=== PATIENT | female | born 1960 | race African-American/Black ===

== ENCOUNTER 2020-06-10 09:26 | Outpatient (CLI) | payer OTHER, SELFPAY ==
--- NOTE | ~2020-06-10 | XR_ITS ---
EXAMINATION: XR abdomen/kub 1V EXAM DATE: 06/10/2020 09:53 INDICATION: Constipation. Mass at level of naval, symptoms 3 months. TECHNIQUE: Frontal projection of the upper abdomen, frontal projection lower abdomen/pelvis for inter pretation. There is no prior study for comparison. FINDINGS: There is moderate amount of colonic stool and gas. No small bowel dilation, nonobstructiv e bowel gas pattern. There are no suspicious calcifications identified. There is no organomegaly suspected. There are cholecystectomy clips. IMPRESSION: Moderate amount of colonic stool. Reviewed, dictated and finalized at location A.
== END 2020-06-10 09:27 | disposition home or self-care (01) ==
LOC: ANHIMG 09:30
PROVIDERS: PCP Family Medicine; Visit Provider Physician Assistant
DX: K59.00 Constipation, unspecified (principal); R10.9 Unspecified abdominal pain
CPT/HCPCS: 74018

== ENCOUNTER 2020-07-21 02:10 | Outpatient (CLI) | payer OTHER, SELFPAY ==
[2020-07-21 18:17] LABS: SARS-CoV-2 RNA PCR Negative
== END 2020-07-21 02:11 | disposition home or self-care (01) ==
LOC: ANHCOVIDDT 02:10
PROVIDERS: Visit Provider Surgery
DX: Z01.812 Encounter for preprocedural laboratory examination (principal); Z20.828 Contact with and (suspected) exposure to other viral communicable diseases
CPT/HCPCS: 87635; C9803; U0003

== ENCOUNTER 2020-07-23 03:36 | Day surgery (SDC) | payer OTHER, SELFPAY ==
[2020-07-16 14:39] VITALS: BMI 31.6
[2020-07-23 11:26] VITALS: BP 138/73; PULSE 64; RESP 16; TEMP 36.7; O2SAT 99; BMI 31.9
--- NOTE | 2020-07-23 11:43 | WPDHPUPDATE1 ---
History and Physical Update Update Date/Time: 07/23/20 11:43 History and Physical has been reviewed, including an updated exam of the patient. There are NO changes in the patient's condition. Risks, benefits, and alternatives of a screening colonoscopy with possible biopsies have been discussed and questions answered. Patient agrees to proceed with procedure.
[2020-07-23] MEDS: LACTATED RINGERS 1,000 ML 150 ML IV CONT (11:46)
--- NOTE | 2020-07-23 11:46 | WPDANESEPPF ---
Anes - Initial Pre Proc Eval Procedure: Operation Date: 07/23/20 12:00 Proposed Procedures p Colonoscopy - Naldo Iniguez MD Date/Time: 07/23/20 11:46 Surgeon: Naldo Iniguez MD Pre Op Diagnosis: Abdominal Pain Patient Data Age: 59 Gender: F Height: 4 ft 11 in Weight: 71.8 kg Last Vital Signs Temp 98.0 F 07/23/20 11:26 Pulse 64 07/23/20 11:26 Resp 16 07/23/20 11:26 BP 138/73 07/23/20 11:26 Pulse Ox 99 07/23/20 11:26 Allergies Allergy/AdvReac Type Severity Reaction Status Date / Time ciprofloxacin [From Cipro] Allergy Mild tongue Verified 07/23/20 11:23 swelling Home Medications Medication Instructions Recorded Confirmed Type cyanocobalamin (vitamin B-12) 1,000 mcg PO DAILY 10/07/19 07/16/20 History 1,000 mcg capsule furosemide 20 mg tablet 20 mg PO QAM #30 tablet 03/10/20 07/16/20 Rx glimepiride 4 mg tablet 4 mg PO QAM #90 tablet 03/10/20 07/16/20 Rx insulin detemir U-100 100 unit/mL See Rx Instructions .ROUTE 03/10/20 07/16/20 Rx (3 mL) subcutaneous pen .COMPLEX #30 ml sitagliptin 100 mg-metformin ER 1 tablet PO DAILY #90 tablet 03/10/20 07/16/20 Rx 1,000 mg tablet,extended [id number] mp liraglutide 0.6 mg/0.1 mL (18 mg/3 1.2 mg SUB-Q DAILY 30 Days #6 ml 05/13/20 07/16/20 Rx mL) subcutaneous pen injector atorvastatin 80 mg PO HS 07/16/20 07/16/20 History docusate sodium [Stool Softener] 300 mg PO DAILY 07/16/20 07/16/20 History methylcellulose (laxative) [Fiber 1,000 mg PO BID 07/16/20 07/16/20 History Therapy (m-cellulose)] nitrofurantoin 100 mg PO Q12H 7 Days #14 cap 07/21/20 07/21/20 Rx monohydrate/macrocrystals 100 mg capsule Patient hx anesthesia problems: none Family hx anesthesia problems: none PMFSH Past Medical History Medical History (Updated 07/21/20 @ 10:45 by Enid Martin PA-C) Benign reactive hypertension Ganglion cyst of volar aspect of right wrist Heart attack Heart disease Hyperlipidemia associated with type 2 diabetes mellitus Mitral valve prolapse Mixed hyperlipidemia S/P abdominoplasty Type 2 diabetes mellitus with diabetic chronic kidney disease Vitamin B2 deficiency Surgical History Surgical History S/P shoulder surgery Family History Family History Father Hypertension Family history of elevated blood lipids Family history of diabetes mellitus in first degree relative High cholesterol Mother Family history of malignant neoplasm of uterus, Onset Age: 49 Patient's mother is Sibling Gunshot wound Other Diabetes mellitus Family history of heart disease in male family member before age 55 Family history of malignant neoplasm Social History Social History (Updated 07/21/20 @ 09:47 by Lianna Riddle) Social History: Smoking status: Never smoker Second hand tobacco smoke exposure: No Alcohol intake: current Substance use: never Substance use type: does not use Living arrangements: with family Gender identity (if verbalized by the patient): Female Spiritual care concerns: No Anes - Eval Final PreProcedure Day of Procedure 07/23/20 11:46 Patient weight: normal Heart: regular rate and rhythm Lungs: clear to auscultation Airway: Mallampati scale class II Neurological: alert and oriented Last oral intake: >/= 8 hours ASA classification: III Emergent: no Anesthetic plan: proceed Anesthesia type and monitoring: general GIVS and standard monitoring Informed Consent: The patient's anesthetic plan and its attendant risks and benefits were discussed with the patient/family/POA. Questions were solicited and answers provided to the satisfaction of the patient/family/POA.
[2020-07-23 11:51] LABS: Glucose Point of Care 120 (65-105)
[2020-07-23 12:50] VITALS: BP 110/60; PULSE 75; RESP 20; O2SAT 96
[2020-07-23 13:00] VITALS: BP 128/73; PULSE 75; RESP 18; O2SAT 100
[2020-07-23 13:10] VITALS: BP 140/69; PULSE 72; RESP 20; O2SAT 100
[2020-07-23] MEDS: ONDANSETRON INJ 4 MG/2 ML VIAL IV PUSH (13:17)
--- NOTE | 2020-07-23 13:52 | SUR.PHASEII ---
1250: PT INTO RECOVERY, SLEEPING, NO SIGNS OF DISCOMFORT 1315: PT GRIMACING WITH COMPLAINTS OF CRAMPING TO LOWER ABDOMEN AND NAUSEA. DR SPICER HERE AND NOTIFIED. DR SPICER SPOKE WITH PT. SAV GIVEN PER ORDERS. DR SPICER CALLED PT'S SPOUSE ABOUT PROCEDURE, PREP, AND THE NEED TO REPEAT PROCEDURE AGAIN TOMORROW AFTER MORE PREP TODAY. 1340: DR SPICER REMAINS HERE AND EXPLAINED PREP FOR TODAY TO PT, PT STATES UNDERSTANDING. PT HAS NO FURTHER COMPLAINTS OF NAUSEA. PT STATES CRAMPING PAIN IS LESS. PT AWAKE AND ALERT, UP WITHOUT DIFFICULTY. 1348: PT TAKEN OUT TO SPOUSE'S VEHICLE. DISCHARGE INSTRUCTIONS AND PREP FOR TODAY EXPLAINED TO PT'S SPOUSE. STATES UNDERSTANDING. ALL PAPERWORK GIVEN TO PT SPOUSE. PT HAS NO COMPLAINTS OF NAUSEA OR PAIN AT DISCHARGE.
[2020-07-23 14:02] LABS: Glucose Point of Care 102 (65-105)
== END 2020-07-23 13:48 | disposition home or self-care (01) ==
PROVIDERS: PCP Family Medicine; Visit Provider Surgery
PROC: 0DJD8ZZ Inspection of Lower Intestinal Tract, Via Natural or Artificial Opening Endoscopic (ICD-10-PCS; CPT 45378; principal; 2020-07-23 12:00)
DX: Z12.11 Encounter for screening for malignant neoplasm of colon (principal); D12.3 Benign neoplasm of transverse colon; I12.9 Hypertensive chronic kidney disease with stage 1 through stage 4 chronic kidney disease, or unspecified chronic kidney disease; N18.9 Chronic kidney disease, unspecified; E78.2 Mixed hyperlipidemia; I34.1 Nonrheumatic mitral (valve) prolapse; E53.8 Deficiency of other specified B group vitamins; Z79.4 Long term (current) use of insulin; I25.2 Old myocardial infarction
CPT/HCPCS: 45380; 88305; J2405; J2704; J7120

== ENCOUNTER 2020-07-24 01:20 | Day surgery (SDC) | payer OTHER, SELFPAY ==
[2020-07-23 13:49] VITALS: BMI 31.9
[2020-07-24 11:54] VITALS: BP 127/95; PULSE 68; RESP 16; TEMP 36.3; O2SAT 98
[2020-07-24] MEDS: LACTATED RINGERS 1,000 ML 150 ML IV CONT (12:05)
[2020-07-24 12:06] LABS: Glucose Point of Care 130 (65-105)
--- NOTE | 2020-07-24 12:45 | WPDANESEPPF ---
Anes - Initial Pre Proc Eval Procedure: Operation Date: 07/24/20 13:00 Proposed Procedures p Colonoscopy - Naldo Iniguez MD Date/Time: 07/24/20 12:45 Surgeon: Naldo Iniguez MD Pre Op Diagnosis: Abdominal Pain Patient Data Age: 59 Gender: F Height: 4 ft 11 in Weight: 70.5 kg Last Vital Signs Temp 97.3 F L 07/24/20 11:54 Pulse 68 07/24/20 11:54 Resp 16 07/24/20 11:54 BP 127/95 H 07/24/20 11:54 Pulse Ox 98 07/24/20 11:54 Allergies Allergy/AdvReac Type Severity Reaction Status Date / Time ciprofloxacin [From Cipro] Allergy Mild tongue Verified 07/24/20 11:52 swelling Home Medications Medication Instructions Recorded Confirmed Type cyanocobalamin (vitamin B-12) 1,000 mcg PO DAILY 10/07/19 07/23/20 History 1,000 mcg capsule furosemide 20 mg tablet 20 mg PO QAM #30 tablet 03/10/20 07/23/20 Rx glimepiride 4 mg tablet 4 mg PO QAM #90 tablet 03/10/20 07/23/20 Rx insulin detemir U-100 100 unit/mL See Rx Instructions .ROUTE 03/10/20 07/23/20 Rx (3 mL) subcutaneous pen .COMPLEX #30 ml sitagliptin 100 mg-metformin ER 1 tablet PO DAILY #90 tablet 03/10/20 07/23/20 Rx 1,000 mg tablet,extended [id number] mp liraglutide 0.6 mg/0.1 mL (18 mg/3 1.2 mg SUB-Q DAILY 30 Days #6 ml 05/13/20 07/23/20 Rx mL) subcutaneous pen injector Fiber Therapy (m-cellulose) 1,000 mg PO BID 07/16/20 07/23/20 History atorvastatin 80 mg PO HS 07/16/20 07/23/20 History docusate sodium [Stool Softener] 300 mg PO DAILY 07/16/20 07/23/20 History nitrofurantoin 100 mg PO Q12H 7 Days #14 cap 07/21/20 07/23/20 Rx monohydrate/macrocrystals 100 mg capsule Laboratory Tests 07/24/20 12:03 POC Capillary Glucose 130 mg/dl H mg/dl (65-105) Patient hx anesthesia problems: none Family hx anesthesia problems: none PMFSH Past Medical History Medical History (Updated 07/21/20 @ 10:45 by Enid Martin PA-C) Benign reactive hypertension Ganglion cyst of volar aspect of right wrist Heart attack Heart disease Hyperlipidemia associated with type 2 diabetes mellitus Mitral valve prolapse Mixed hyperlipidemia S/P abdominoplasty Type 2 diabetes mellitus with diabetic chronic kidney disease Vitamin B2 deficiency Surgical History Surgical History S/P shoulder surgery Family History Family History Father Hypertension Family history of elevated blood lipids Family history of diabetes mellitus in first degree relative High cholesterol Mother Family history of malignant neoplasm of uterus, Onset Age: 49 Patient's mother is Sibling Gunshot wound Other Diabetes mellitus Family history of heart disease in male family member before age 55 Family history of malignant neoplasm Social History Social History (Updated 07/21/20 @ 09:47 by Lianna Riddle) Social History: Smoking status: Former smoker Second hand tobacco smoke exposure: No Alcohol intake: current Drinks per week: 1 Substance use: never Substance use type: does not use Living arrangements: with family Gender identity (if verbalized by the patient): Female Spiritual care concerns: No Anes - Eval Final PreProcedure Day of Procedure 07/24/20 12:45 Patient weight: normal Lungs: clear to auscultation Airway: Mallampati scale class II Neurological: alert and oriented Last oral intake: >/= 8 hours ASA classification: III Emergent: no Anesthetic plan: proceed Anesthesia type and monitoring: general GIVS and standard monitoring Informed Consent: The patient's anesthetic plan and its attendant risks and benefits were discussed with the patient/family/POA. Questions were solicited and answers provided to the satisfaction of the patient/family/POA.
--- NOTE | 2020-07-24 12:56 | WPDHPUPDATE1 ---
History and Physical Update Update Date/Time: 07/24/20 12:56 History and Physical has been reviewed, including an updated exam of the patient. There are changes in the patient's condition. She recovered well from the partial colonoscopy (poor prep) yesterday and the path o the polyp that I removed yesterday is already back showing a tubular adenoma. Risks, benefits, and alternatives of a colonoscopy with possible biopsy of polypectomy have been discussed and questions answered. Patient agrees to proceed with procedure.
[2020-07-24 14:20] VITALS: BP 109/59; PULSE 66; RESP 17; TEMP 36; O2SAT 100
[2020-07-24 14:30] VITALS: BP 110/65; PULSE 74; RESP 21; O2SAT 100
[2020-07-24 14:38] LABS: Glucose Point of Care 87 (65-105)
[2020-07-24 14:40] VITALS: BP 122/73; PULSE 70; RESP 13; O2SAT 100
== END 2020-07-24 15:00 | disposition home or self-care (01) ==
PROVIDERS: PCP Family Medicine; Visit Provider Surgery
PROC: 0DJD8ZZ Inspection of Lower Intestinal Tract, Via Natural or Artificial Opening Endoscopic (ICD-10-PCS; CPT 45378; principal; 2020-07-24 13:00)
DX: Z12.11 Encounter for screening for malignant neoplasm of colon (principal); R10.84 Generalized abdominal pain; I12.9 Hypertensive chronic kidney disease with stage 1 through stage 4 chronic kidney disease, or unspecified chronic kidney disease; N18.9 Chronic kidney disease, unspecified; E11.22 Type 2 diabetes mellitus with diabetic chronic kidney disease; E78.2 Mixed hyperlipidemia; I25.2 Old myocardial infarction; I34.1 Nonrheumatic mitral (valve) prolapse; E53.8 Deficiency of other specified B group vitamins; Z79.4 Long term (current) use of insulin; Z79.84 Long term (current) use of oral hypoglycemic drugs; Z87.891 Personal history of nicotine dependence
CPT/HCPCS: 45380; 88305; J2704; J7120

== ENCOUNTER 2020-09-03 06:53 | Outpatient (NON) | payer OTHER, SELFPAY ==
[2020-09-04 06:44] LABS: SARS-CoV-2 RNA PCR Negative
== END 2020-09-03 06:54 ==
LOC: ANHCOVIDDT 06:56
PROVIDERS: PCP Family Medicine; Visit Provider Physician Assistant
DX: R68.89 Other general symptoms and signs (principal); Z20.828 Contact with and (suspected) exposure to other viral communicable diseases
CPT/HCPCS: 87635; C9803; U0003

== ENCOUNTER → 2021-03-16 09:41 | Outpatient (CLI) | payer OTHER, SELFPAY ==
--- NOTE | ~2021-03-16 | MM_ITS ---
EXAMINATION: MM screening [facility] BI w kristi HISTORY: Screening TECHNIQUE: Craniocaudal and mediolateral oblique 3-D tomosynthesis images were obtained and synthetic 2-D images were generated. CAD analysis was submitted and interpreted. COMPARISON: 12/06/2013 BREAST PARENCHYMAL COMPOSITION: There are scattered areas of fibroglandular density. FINDINGS: There are benign-appearing bilateral breast calcifications. There is no evidence of suspici ous mass, calcification, or architectural distortion to suggest malignancy in either breast. There hester s been no suspicious interval change. IMPRESSION: 1. No mammographic evidence of malignancy. 2. Recommend routine screening mammography in one year. BI-RADS Category 1: Negative Reviewed, dictated and finalized at location A.
== END ==
PROVIDERS: PCP Family Medicine; Visit Provider Physician Assistant
DX: Z12.31 Encounter for screening mammogram for malignant neoplasm of breast (principal)
CPT/HCPCS: 77063; 77067

== ENCOUNTER 2021-07-05 13:00 | Outpatient (RCR) | payer OTHER, SELFPAY ==
[2021-05-11 14:12] VITALS: BMI 32.5
[2021-05-11 14:17] VITALS: BMI 32.5
== END 2021-07-26 10:36 | disposition home or self-care (01) ==
LOC: ANHDMC 13:00
PROVIDERS: PCP Family Medicine; Visit Provider Physician Assistant
DX: E11.65 Type 2 diabetes mellitus with hyperglycemia (principal); Z71.3 Dietary counseling and surveillance; Z71.89 Other specified counseling
CPT/HCPCS: 97802; G0108

== ENCOUNTER 2021-08-23 11:20 | Outpatient (RCR) | payer OTHER, SELFPAY | END 2021-09-08 11:37 | disposition home or self-care (01) | LOC: ANHDMC 11:20 | PROVIDERS: PCP Family Medicine; Visit Provider Physician Assistant | DX: E11.65 Type 2 diabetes mellitus with hyperglycemia (principal); Z71.89 Other specified counseling | CPT/HCPCS: G0108 ==

== ENCOUNTER 2021-09-01 16:03 | Emergency (ER) | payer MEDICAID, SELFPAY ==
--- NOTE | ~2021-09-01 | XR_ITS ---
EXAMINATION: XR abdomen/kub 1V DATE: 09/01/2021 16:36 INDICATION: Foreign body. Insulin needle broke off in stomach. TECHNIQUE: A supine view of the abdomen on 2 radiographs was obtained. COMPARISON: Abdomen radiograph 06/10/2020 FINDINGS: There are no dilated loops of bowel. Surgical clips in the right upper quadrant are likely from cholecystectomy. An electronic device overlies left abdomen. Two round metal densities overlying the pelvis are likely outside of the patient. IMPRESSION: 1. No radiopaque foreign body. Reviewed, dictated and finalized at location A. ET PERSON
[2021-09-01 16:10] VITALS: BP 168/90; PULSE 96; RESP 14; TEMP 36.6; O2SAT 96
--- NOTE | 2021-09-01 16:59 | ED.GENADULT ---
HPI - General Adult General Chief complaint: Skin/Abscess/Foreign Body Stated complaint: insulin needle broke off in stomach? Time Seen by Provider: 09/01/21 16:14 Source: patient Mode of arrival: ambulatory Limitations: no limitations History of Present Illness HPI narrative: 60-year-old with a history of diabetes here with complaints of possible insulin needle stuck in the right upper abdomen since last 3 days. She states that she has occasional pain. Patient states she gives her insulin daily . Denies any other complaints Onset (ago): day(s) (3) Quality: aching Exacerbating factors: none Associated symptoms: denies other symptoms Related Data Home Medications Medication Instructions Recorded Confirmed cyanocobalamin (vitamin B-12) 1,000 mcg PO DAILY 10/07/19 08/28/21 1,000 mcg capsule Fiber Therapy (m-cellulose) 1,000 mg PO BID 07/16/20 08/28/21 docusate sodium [Stool Softener] 300 mg PO DAILY 07/16/20 08/28/21 omega-3 fatty acids 1,000 mg 1,000 mg PO DAILY 01/27/21 08/28/21 capsule Allergies Allergy/AdvReac Type Severity Reaction Status Date / Time ciprofloxacin [From Cipro] Allergy Mild tongue Verified 08/13/21 14:03 swelling Review of Systems Review of Systems: All systems reviewed & are unremarkable except as noted in HPI and below Constitutional: Constitutional: Reports no additional constitutional complaints Eyes: Eyes: Reports no additional eye complaints ENT: Reports system reviewed and no additional complaints, except as documented Cardiovascular: Cardiovascular: Reports no additional cardiovascular complaints Respiratory: Respiratory: Reports no additional respiratory complaints Gastrointestinal: Gastrointestinal: Reports no additional gastrointestinal complaints Musculoskeletal: Musculoskeletal: Reports no additional musculoskeletal complaints Integumentary/Breasts: Skin/Breast: Reports system reviewed and no additional complaints, except as docu Neurologic: Reports system reviewed and no additional complaints, except as documented Psychiatric: Psychiatric: Reports no additional psychiatric complaints Endocrine: Endocrine: Reports no additional endocrine complaints [facility] Past Medical History Medical History (Updated 09/01/21 @ 17:17 by Chan Dominguez MD) Benign reactive hypertension Ganglion cyst of volar aspect of right wrist Heart attack Heart disease Hyperlipidemia associated with type 2 diabetes mellitus Mitral valve prolapse Mixed hyperlipidemia S/P abdominoplasty Type 2 diabetes mellitus with diabetic chronic kidney disease Vitamin B2 deficiency Surgical History Surgical History S/P shoulder surgery Family History Family History Father Hypertension Family history of elevated blood lipids Family history of diabetes mellitus in first degree relative High cholesterol Mother Family history of malignant neoplasm of uterus, Onset Age: 49 Patient's mother is Sibling Gunshot wound Other Diabetes mellitus Family history of heart disease in male family member before age 55 Family history of malignant neoplasm Social History Social History Social History: Smoking status: Never smoker Second hand tobacco smoke exposure: No Alcohol intake: current Drinks per week: 1 Alcohol use details: occasionally Substance use: never Substance use type: does not use Gender identity (if verbalized by the patient): Female Sexual Orientation (if Verbalized by the Patient): Straight or Heterosexual Spiritual care concerns: No Exam Narrative: GENERAL: Well-appearing, well-nourished, and in no acute distress. HEAD: Normocephalic, atraumatic. EYES: PERRLA and EOMI. NECK: Supple. CHEST: Clear to auscultation. No respiratory distress. HEART: Regular ra
== END 2021-09-01 17:28 | disposition home or self-care (01) ==
PROVIDERS: Emergency Provider Family Medicine; PCP Family Medicine
DX: R10.9 Unspecified abdominal pain (principal); I25.2 Old myocardial infarction; N28.9 Disorder of kidney and ureter, unspecified; E11.9 Type 2 diabetes mellitus without complications
CPT/HCPCS: 74018; 99283

== ENCOUNTER 2021-09-25 13:10 | Emergency (ER) | payer MEDICAID, SELFPAY ==
--- NOTE | ~2021-09-25 | XR_ITS ---
EXAMINATION: XR ribs LT 2V w CXR 2V INDICATION: Left posterior rib pain TECHNIQUE: PA and lateral views of the chest and 3 views of the left ribs were obtained. COMPARISON: 08/21/2016 FINDINGS: The lungs are free of acute opacities. There is no pleural effusion or pneumothorax. The ca rdiomediastinal silhouette is normal. No displaced rib fracture is identified. There is mild thoracic spondylosis. Surgical clips in the right upper quadrant are likely from prior cholecystectomy. 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 IMPRESSION: 1. No acute cardiopulmonary abnormality or evidence of displaced rib fracture. Reviewed, dictated and finalized at location A. NSING REPRESENTATIVE
[2021-09-25 13:30] VITALS: BP 187/84; PULSE 73; RESP 15; TEMP 36.9; O2SAT 95
--- NOTE | 2021-09-25 13:48 | ED.GENADULT ---
HPI - General Adult General Chief complaint: Unspecified Stated complaint: Left rib pain, right side neck sore Time Seen by Provider: 09/25/21 13:17 Source: patient Mode of arrival: ambulatory Limitations: no limitations History of Present Illness HPI narrative: This is a 60 year old female that presents to the ER with multiple complaints. Reports pain in her left mid back. Present over the last week. Unsure of any certain injury or trauma. The pain is worse with movement and relieved with rest. Also reports urinary frequency and cloudy urine. Reports she has had an area on the right side of her neck that is tender to palpation and she is having some discomfort with swallowing. Denies fever, abdominal pain, vomiting or dysuria. Related Data Home Medications Medication Instructions Recorded Confirmed cyanocobalamin (vitamin B-12) 1,000 mcg PO DAILY 10/07/19 08/28/21 1,000 mcg capsule Fiber Therapy (m-cellulose) 1,000 mg PO BID 07/16/20 08/28/21 docusate sodium [Stool Softener] 300 mg PO DAILY 07/16/20 08/28/21 omega-3 fatty acids 1,000 mg 1,000 mg PO DAILY 01/27/21 08/28/21 capsule Allergies Allergy/AdvReac Type Severity Reaction Status Date / Time ciprofloxacin [From Cipro] Allergy Mild tongue Verified 08/13/21 14:03 swelling Review of Systems Review of Systems: CONSTITUTIONAL: Denies fever ENT: Reports sore throat GASTROINTESTINAL: Denies abdominal pain, nausea, vomiting GENITOURINARY: Denies dysuria or hematuria. SKIN: Denies rash MUSCULOSKELETAL: Reports back pain, and myalgia. All systems reviewed & are unremarkable except as noted in HPI and below PMFSH Past Medical History Medical History (Updated 09/25/21 @ 16:30 by Sheela Lopez PA-C) Benign reactive hypertension Ganglion cyst of volar aspect of right wrist Heart attack Heart disease Hyperlipidemia associated with type 2 diabetes mellitus Mitral valve prolapse Mixed hyperlipidemia S/P abdominoplasty Type 2 diabetes mellitus with diabetic chronic kidney disease Vitamin B2 deficiency Surgical History Surgical History S/P shoulder surgery Family History Family History Father Hypertension Family history of elevated blood lipids Family history of diabetes mellitus in first degree relative High cholesterol Mother Family history of malignant neoplasm of uterus, Onset Age: 49 Patient's mother is Sibling Gunshot wound Other Diabetes mellitus Family history of heart disease in male family member before age 55 Family history of malignant neoplasm Social History Social History Social History: Smoking status: Never smoker Second hand tobacco smoke exposure: No Alcohol intake: current Drinks per week: 1 Alcohol use details: occasionally Substance use: never Substance use type: does not use Gender identity (if verbalized by the patient): Female Sexual Orientation (if Verbalized by the Patient): Straight or Heterosexual Spiritual care concerns: No Exam Narrative: GENERAL: Well-appearing, well-nourished, and in no acute distress. HEAD: Normocephalic, atraumatic. EYES: EOMI. ENT: Nares clear, no rhinorrhea or epistaxis. Mucous membranes moist. Oropharynx without tonsillar hypertrophy exudate or other lesions. Bilateral TMs pearly mchugh non-bulging NECK: Supple. No adenopathy or masses. CHEST: Clear to auscultation. No respiratory distress. No wheezes rales or rhonchi HEART: Regular rate and rhythm. No murmur heard. Normal peripheral pulses. ABDOMEN: Soft, nontender, nondistended, normal active bowel sounds. No CVA tenderness EXTREMITIES: Normal range of motion. No edema. SKIN: Warm, dry, no rash. NEURO: No focal deficits. Alert and oriented x3. PSYCH: Normal mood and affect Course Vital Signs Vital signs: Vital
[2021-09-25 14:22] LABS: Basophils Percent Auto 0.4 % (0.2-1.2); Eosinophils Absolute Auto 0.1 K/mm3 (0-0.3); Eosinophils Percent Auto 1.5 % (0-4.4); Hematocrit 40.9 % (37.0-47.0); Hemoglobin 13.2 g/dL (12.0-15.0); Immature Granulocyte Absolute 0.02 K/mm3 (0.00-0.031); Immature Granulocyte Percent A 0.2 % (0-0.5); Lymphocytes Absolute Auto 3.21 K/mm3 (0.9-3.2); Lymphocytes Percent Auto 39.1 % (18.3-44.2); Mean Corpuscular HGB Conc 32.3 g/dl (32-36); Mean Corpuscular Hemoglobin 28.7 pg (26-34); Mean Corpuscular Volume 88.9 fl (80-100); Mean Platelet Volume 11.5 fl (7.4-10.4); Monocytes Absolute Auto 0.5 K/mm3 (0.1-0.6); Monocytes Percent Auto 5.7 % (2.6-8.5); Neutrophils Absolute Auto 4.4 K/mm3 (1.3-6.7); Neutrophils Percent Auto 53.1 % (45.5-73.1); Platelet Count Result 251 k/mm3 (150-375); Red Cell Distribution Width 13.5 % (11.5-14.5); White Blood Count 8.2 K/mm3 (4.5-10.0)
[2021-09-25 14:33] LABS: Add Urine Microscopic? YES; Appearance Urine Cloudy (Clear); Bacteria Urine 2+ /hpf; Bilirubin Urine Negative (Negative); Color Urine Yellow (Yellow); Glucose Urine UA 1+ mg/dL (Negative); Ketones Urine Negative (Negative); Leukocyte Esterase Ur Negative LEU/UL (Negative); Mucus Urine Rare /lpf; Nitrate Urine Negative (Negative); Protein Urine Negative (Negative); RBC Urine 0-2 /hpf (0-2); Specific Grav Ur 1.016 (1.001-1.035); Squamous Epithelial Cell Urine Many /hpf (Few); Urobilinogen Urine Negative mg/dL (<2.0)
[2021-09-25 14:34] LABS: Anion Gap 9 mmol/L (8-16); Blood Urea Nitrogen 14 mg/dL (7-17); Blood Urine Negative (Negative); Calcium 9.5 mg/dL (8.4-10.2); Carbon Dioxide 24 mmol/L (22-30); Chloride 105 mmol/L (98-107); Estimated Glomerular Filt Rate > 60; Glucose 213 mg/dL (65-110); Potassium 3.7 mmol/L (3.4-5.0); Sodium 138 mmol/L (137-145)
[2021-09-25] MEDS: ACETAMINOPHEN 500 MG TABLET 1000 MG PO (15:13)
[2021-09-25 17:20] VITALS: BP 165/78; PULSE 75; RESP 16; O2SAT 97
[2021-09-25] MEDS: FLUCONAZOLE 150 MG TABLET PO (17:23)
== END 2021-09-25 17:33 | disposition home or self-care (01) ==
PROVIDERS: Physician Assistant; Emergency Provider Emergency Medicine; PCP Family Medicine
DX: R82.71 Bacteriuria (principal); S29.012A Strain of muscle and tendon of back wall of thorax, initial encounter; I10 Essential (primary) hypertension; I25.2 Old myocardial infarction; E78.5 Hyperlipidemia, unspecified; E11.9 Type 2 diabetes mellitus without complications; X58.XXXA Exposure to other specified factors, initial encounter
CPT/HCPCS: 36415; 71046; 71100; 80048; 81001; 85025; 87077; 87081; 87086; 87088; 87186; 87880; 99283; A9270

== ENCOUNTER 2022-11-07 13:58 | Emergency (ER) | payer OTHER, SELFPAY ==
[2022-11-07 14:09] VITALS: BP 134/72; PULSE 73; RESP 18; TEMP 37; O2SAT 96
--- NOTE | 2022-11-07 14:16 | ED.ABDPAIN ---
HPI - Abdominal Pain General Chief Complaint: Abdominal Pain Stated Complaint: Right Side Pain Time Seen by Provider: 11/07/22 14:15 Source: patient, RN notes reviewed and old records reviewed Mode of arrival: ambulatory Limitations: no limitations History of Present Illness HPI narrative: 62-year-old female presents to the [facility] with right lower quadrant pain that was onset last night. Reports some nausea without vomiting. Denies chest pain. States her blood sugars have been under 200. She is a diabetic with a history of hypertension. Denies any urinary symptoms. No frequency, urgency or burning. MD elicited complaint: abdominal pain (Right lower quadrant) Related Data Home Medications Medication Instructions Recorded Confirmed amlodipine 5 mg tablet mg 11/07/22 dulaglutide 4.5 mg/0.5 mL mg subcut 11/07/22 subcutaneous pen injector (Trulicity) furosemide 20 mg tablet mg 11/07/22 hydralazine 10 mg tablet mg 11/07/22 insulin glargine U-300 conc 300 unit subcut 11/07/22 unit/mL (3 mL) subcutaneous pen (Toujeo Max U-300 SoloStar) pantoprazole 40 mg tablet,delayed mg PO 11/07/22 release Allergies Allergy/AdvReac Type Severity Reaction Status Date / Time ciprofloxacin [From Cipro] Allergy Mild tongue Verified 11/07/22 14:07 swelling losartan Allergy Unknown Abdominal Verified 11/07/22 14:07 Pain MYCHAL Inhibitors AdvReac Intermediate angioedema Verified 11/07/22 14:07 amlodipine Allergy Intermediate joint ache Uncoded 11/07/22 14:07 Review of Systems Review of Systems: All systems reviewed & are unremarkable except as noted in HPI and below Constitutional: Constitutional: Reports no additional constitutional complaints Eyes: Eyes: Reports no additional eye complaints ENT: Reports system reviewed and no additional complaints, except as documented Cardiovascular: Cardiovascular: Reports no additional cardiovascular complaints, Denies chest pain and Denies dyspnea Respiratory: Respiratory: Reports no additional respiratory complaints, Denies chest congestion, Denies cough and Denies dyspnea Gastrointestinal: Gastrointestinal: Reports as per HPI, Reports abdominal pain (Right lower quadrant), Reports nausea and Denies vomiting Genitourinary: Genitourinary: Reports no additional female genitourinary complaints and Denies dysuria Musculoskeletal: Musculoskeletal: Reports no additional musculoskeletal complaints Integumentary/Breasts: Skin/Breast: Reports system reviewed and no additional complaints, except as docu Neurologic: Reports system reviewed and no additional complaints, except as documented Psychiatric: Psychiatric: Reports no additional psychiatric complaints Allergic/Immunologic: Allergic/Immunologic: Reports no additional allergic/immunologic complaints [facility] Past Medical History Medical History (Updated 11/07/22 @ 14:39 by Scarlett Keller APRN) Benign reactive hypertension Ganglion cyst of volar aspect of right wrist Heart attack Heart disease Hyperlipidemia associated with type 2 diabetes mellitus Mitral valve prolapse Mixed hyperlipidemia S/P abdominoplasty Type 2 diabetes mellitus with diabetic chronic kidney disease Vitamin B2 deficiency Surgical History Surgical History (Updated 11/07/22 @ 14:32 by Scarlett Keller APRN) History of bilateral tubal ligation S/P shoulder surgery Family History Family History Father Hypertension Family history of elevated blood lipids Family history of diabetes mellitus in first degree relative High cholesterol Mother Family history of malignant neoplasm of uterus, Onset Age: 49 Patient's mother is Sibling Gunshot wound Other Diabetes mellitus Family history of heart disease in male family member before age 55 Family history of malignant neoplasm Social History Social History (Reviewed 11/07/22 @ 14:32 by Scarlett Keller,
[2022-11-07 14:23] LABS: Glucose Point of Care 154 mg/dl (65-105)
== END 2022-11-07 14:24 | disposition short-term general hospital (02) ==
PROVIDERS: Emergency Provider Nurse Practitioner; PCP Family Medicine
DX: R10.31 Right lower quadrant pain (principal); I13.10 Hypertensive heart and chronic kidney disease without heart failure, with stage 1 through stage 4 chronic kidney disease, or unspecified chronic kidney disease; E11.22 Type 2 diabetes mellitus with diabetic chronic kidney disease; N18.9 Chronic kidney disease, unspecified; Z79.4 Long term (current) use of insulin; I25.2 Old myocardial infarction; I34.1 Nonrheumatic mitral (valve) prolapse
CPT/HCPCS: 82948; 99212; G0463

== ENCOUNTER 2022-11-07 14:42 | Observation (INO) | payer OTHER, SELFPAY ==
--- NOTE | ~2022-11-07 | CT_ITS ---
EXAMINATION: CT abdomen pelvis w con DATE: 11/07/2022 22:16 INDICATION: RLQ abd pain, nausea, vomiting TECHNIQUE: Computed tomography (CT) of the abdomen and pelvis was performed with 100 mL Omnipaque-350 intravenous contrast. Automated exposure control and iterative reconstruction technique were employe d. The dose-length product was 456.19 mGy-cm. COMPARISON: None. FINDINGS: Lower thorax: Scattered ill-defined areas of groundglass opacity in the lower lungs. Liver: Normal. Biliary/Gallbladder: Gallbladder is absent. No bile duct dilation. Pancreas: No mass or duct dilation. Spleen: Normal. Adrenals:No mass. Kidneys: 1.9 cm complex, possibly septated left lower pole cyst with internal hyperdensity versus enh ancement. No obstructing calculus. Simple left upper pole cyst. No hydronephrosis. GI tract: Distal esophageal and gastric wall edema. No small or large bowel dilation. Mildly dilated appendix up to 7 mm, with mild wall thickening, no significant surrounding inflammatory change. Mesentery/Peritoneum: No ascites, mass, or free air. Retroperitoneum: No mass. Pelvis: The bladder is mostly decompressed, with moderate wall thickening. Uterine fibroids. Soft Tissues: Uncomplicated small fat-containing umbilical hernia. Dermal thickening and subcutaneous stranding in the lower quadrants possibly related to surgical scar. Bones: No acute osseous finding. IMPRESSION: 1. Pulmonary opacities may reflect hypersensitivity pneumonitis, respiratory bronchiolitis, or asthma . 2. Esophagitis/gastritis. 3. 1.9 cm indeterminate left inferior pole renal mass. Recommend timely outpatient MRI of the kidneys without and with contrast for further characterization. 4. Mildly dilated appendix with wall thickening may reflect early/mild appendicitis, in the appropria te clinical context. 5. Bladder wall thickening may be secondary to incomplete urinary bladder distention versus cystitis. Reviewed, dictated and finalized at location K. CAL BRIGHTENER MAKER HELPER IMPRESSION: 1. Pulmonary opacities may reflect hypersensitivity pneumonitis, respiratory br onchiolitis, or asthma. 2. Esophagitis/gastritis. 3. 1.9 cm indeterminate left inferior pole renal mass. Recommend timely outpati ent MRI of the kidneys without and with contrast for further characterization. 4. Mildly dilated appendix with wall thickening may reflect early/mild appendic itis, in the appropriate clinical context. 5. Bladder wall thickening may be secondary to incomplete urinary bladder diste ntion versus cystitis.
--- NOTE | ~2022-11-07 | US_ITS ---
Renal-Bladder ultrasound Clinical History: Left renal mass Technique: Real-time sonographic imaging of the kidneys and urinary bladder was performed. Findings: The right kidney measures 9.6 cm in length and the left kidney measures 10.9 cm. There is n o hydronephrosis or renal calculus identified. Renal cortical echogenicity is within normal limits. N o solid renal mass lesion is identified. Left renal cyst noted. The urinary bladder is moderately distended at the time of this exam. No intraluminal echoes are iden tified. No abnormal wall thickening is seen. Impression: Left renal cyst, benign. Reviewed, dictated and finalized at location M. ON LAMP CLEANER Impression: Left renal cyst, benign.
--- NOTE | ~2022-11-07 | XR_ITS ---
Clinical Indication: Abnormal CT scan PA and lateral views of the chest: Comparison: 09/25/2021 Findings: The lungs are clear, without evidence of focal consolidation or pleural effusion. Cardiome diastinal silhouette is within normal limits. Bones and soft tissues are unremarkable. Impression: Normal chest. Reviewed, dictated and finalized at [facility]. GEMENT MANAGER Impression: Normal chest.
[2022-11-07 14:54] VITALS: BP 152/67; PULSE 79; RESP 16; TEMP 36.7; O2SAT 97
[2022-11-07 15:15] LABS: Basophils Absolute Auto 0.1 K/mm3 (0.0-0.1); Basophils Percent Auto 0.4 % (0.2-1.2); Eosinophils Absolute Auto 0.1 K/mm3 (0-0.3); Eosinophils Percent Auto 0.8 % (0-4.4); Hematocrit 40.9 % (37.0-47.0); Hemoglobin 13.8 g/dL (12.0-15.0); Immature Granulocyte Absolute 0.03 K/mm3 (0.00-0.031); Immature Granulocyte Percent A 0.3 % (0-0.5); Lymphocytes Absolute Auto 4.42 K/mm3 (0.9-3.2); Lymphocytes Percent Auto 36.9 % (18.3-44.2); Mean Corpuscular HGB Conc 33.7 g/dl (32-36); Mean Corpuscular Hemoglobin 29.2 pg (26-34); Mean Corpuscular Volume 86.7 fl (80-100); Mean Platelet Volume 10.8 fl (7.4-10.4); Monocytes Absolute Auto 0.6 K/mm3 (0.1-0.6); Monocytes Percent Auto 4.7 % (2.6-8.5); Neutrophils Absolute Auto 6.8 K/mm3 (1.3-6.7); Neutrophils Percent Auto 56.9 % (45.5-73.1); Platelet Count Result 325 k/mm3 (150-375); Red Blood Count 4.72 M/mm3 (4.2-5.4); Red Cell Distribution Width 13.1 % (11.5-14.5)
[2022-11-07 15:26] LABS: Alanine Aminotransferase 25 U/L (6-35); Albumin Level 4.6 g/dL (3.5-5.1); Alkaline Phosphatase 87 U/L (38-126); Anion Gap 10 mmol/L (8-16); Aspartate Amino Transferase 29 U/L (14-36); Bilirubin,Total 0.7 mg/dL (0.2-1.3); Blood Urea Nitrogen 10 mg/dL (7-17); Calcium 9.1 mg/dL (8.4-10.2); Carbon Dioxide 26 mmol/L (22-30); Chloride 106 mmol/L (98-107); Estimated Glomerular Filt Rate > 60; Glucose 150 mg/dL (65-110); Lipase 66 U/L (23-300); Potassium 3.1 mmol/L (3.4-5.0); Sodium 142 mmol/L (137-145)
[2022-11-07 20:58] VITALS: BP 146/74; PULSE 85; RESP 18; O2SAT 98
[2022-11-07 21:24] LABS: Appearance Urine Cloudy (Clear); Bilirubin Urine 1+ (Negative); Blood Urine Negative (Negative); Color Urine Yellow (Yellow); Glucose Urine UA Trace mg/dL (Negative); Ketones Urine 2+ mg/dL (Negative); Leukocyte Esterase Ur 2+ LEU/UL (Negative); Nitrate Urine Positive (Negative); Protein Urine 1+ mg/dL (Negative); Urobilinogen Urine 0.2 mg/dL (<2.0)
[2022-11-07 21:29] LABS: Bacteria Urine Trace /hpf; Mucus Urine Few /lpf; Squamous Epithelial Cell Urine Many /hpf (Few); WBC Urine 21-30 /hpf
[2022-11-07 21:32] LABS: Add Urine Microscopic? YES
[2022-11-07 21:35] VITALS: PULSE 72; RESP 18; TEMP 36.6; O2SAT 98
--- NOTE | 2022-11-07 21:45 | ED.ABDPAIN ---
HPI - Abdominal Pain General Chief Complaint: Abdominal Pain Stated Complaint: R. side abd pain Time Seen by Provider: 11/07/22 21:38 History of Present Illness HPI narrative: Patient is a 62-year-old female with a history of diabetes, on Trulicity and insulin, referred from urgent care for evaluation of right lower quadrant abdominal pain over the past day. Patient states the pain began as a dull ache, has worsened in severity since onset. Denies relief after Tylenol. Last night she had some night sweats but was afebrile. Also notes nausea but no vomiting. No diarrhea, constipation, dysuria, urgency or frequency. She has a history of gallstones and sludge but still has her gallbladder, and has also had an abdominoplasty. Related Data Home Medications Medication Instructions Recorded Confirmed amlodipine 5 mg tablet 5 mg PO DAILY PRN Headache 11/07/22 11/08/22 dulaglutide 4.5 mg/0.5 mL 4.5 mg subcut WEEKLY 11/07/22 11/08/22 subcutaneous pen injector (Trulicity) furosemide 20 mg tablet 20 mg PO DAILY 11/07/22 11/08/22 hydralazine 10 mg tablet 10 mg PO DAILY 11/07/22 11/08/22 insulin glargine U-300 conc 300 70 unit subcut BID 11/07/22 11/08/22 unit/mL (3 mL) subcutaneous pen (Toujeo Max U-300 SoloStar) pantoprazole 40 mg tablet,delayed 40 mg PO DAILY 11/07/22 11/08/22 release aspirin 81 mg chewable tablet 81 mg PO PRN 11/08/22 11/08/22 Allergies Allergy/AdvReac Type Severity Reaction Status Date / Time ciprofloxacin [From Cipro] Allergy Mild tongue Verified 11/07/22 14:07 swelling losartan Allergy Unknown Abdominal Verified 11/07/22 14:07 Pain MYCHAL Inhibitors AdvReac Intermediate angioedema Verified 11/07/22 14:07 amlodipine Allergy Intermediate joint ache Uncoded 11/07/22 14:07 Review of Systems Review of Systems: Gen.: Denies fevers or chills Eyes: Denies eye pain or visual change ENT: Denies congestion Respiratory: Denies shortness of breath or cough CV: Denies chest pain or palpitations GI: Reports right lower quadrant abdominal pain, nausea. denies emesis or diarrhea denies burning, urgency, frequency or hematuria Musculoskeletal: Denies back pain or muscle pain Neuro: Denies numbness, tingling, weakness or focal weakness Skin: Denies rash Except as documented, all other systems reviewed and negative [facility] Past Medical History Medical History Benign reactive hypertension Ganglion cyst of volar aspect of right wrist Heart attack Heart disease Hyperlipidemia associated with type 2 diabetes mellitus Mitral valve prolapse Mixed hyperlipidemia S/P abdominoplasty Type 2 diabetes mellitus with diabetic chronic kidney disease Vitamin B2 deficiency Surgical History Surgical History History of bilateral tubal ligation S/P shoulder surgery Family History Family History Father Hypertension Family history of elevated blood lipids Family history of diabetes mellitus in first degree relative High cholesterol Mother Family history of malignant neoplasm of uterus, Onset Age: 49 Patient's mother is Sibling Gunshot wound Other Diabetes mellitus Family history of heart disease in male family member before age 55 Family history of malignant neoplasm Social History Social History Social History: Smoking status: Never smoker Second hand tobacco smoke exposure: No Alcohol intake: current Alcohol use details: occasionally Substance use: never Substance use type: does not use Lack of Transportation: No Lack of Food: Never True Current Housing: I Have Housing Concerned About Future Housing: No Difficulty Paying Gas/Electric Bills: No Difficulty Paying for Meds: YES 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
[2022-11-07] MEDS: LACTATED RINGERS 1,000 ML 999 ML IV CONT (22:01)
[2022-11-07] MEDS: MORPHINE SULFATE (*CRX) 4 MG/ML INJ IV PUSH (22:01)
[2022-11-07] MEDS: ONDANSETRON INJ 4 MG/2 ML VIAL IV PUSH (22:02)
[2022-11-07] MEDS: SODIUM CHLORIDE 0.9% IV 1,000 ML 150 ML IV CONT (23:00)
[2022-11-07 23:59] VITALS: BP 134/62; PULSE 76; RESP 16; TEMP 36.7; O2SAT 98
[2022-11-08] VITALS (11 sets, daily range): BP systolic 101–165; BP diastolic 53–68; PULSE 70–92; RESP 15–18; TEMP 36.4–36.9; O2SAT 94–100; BMI 33.0
[2022-11-08 00:03] LABS: Influenza A QL RT-PCR Negative (Negative); Influenza B QL RT-PCR Negative (Negative); SARS-CoV-2 RNA PCR Negative
--- NOTE | 2022-11-08 00:11 | ADMGEN ---
This patient, Padmini Brown, was admitted to [address] [place] [address] Room 300-01 at 2350. Patient/family oriented to hospital policies and general routines including ID bracelet, bed and alarms, visiting hours, pain management, procedures, bathroom and other care routines, personal items, smoking policy, room service/diet, and visiting hours. Information on how to activate the Rapid Response Team has been discussed. Patient/Family are encouraged to report perceived risks to care and to ask questions if they do not understand what they are told or what they should do.
[2022-11-08] MEDS: MORPHINE SULFATE (*CRX) 4 MG/ML INJ IV PUSH (00:52)
[2022-11-08 06:23] LABS: Glucose Point of Care 105 mg/dl (65-105)
[2022-11-08 08:10] LABS: Glucose Point of Care 86 mg/dl (65-105)
[2022-11-08] MEDS: SODIUM CHLORIDE 0.9% IV 1,000 ML 100 ML IV CONT (08:52)
[2022-11-08] MEDS: HYDROmorphone HCL INJ (*CRX) 1 MG/ML SYR IV PUSH (08:52)
--- NOTE | 2022-11-08 09:47 | ECG_ITS ---
Measurements Intervals [place] Rate: 74 P: 44 DE: 157 QRS: -7 QRSD: 102 T: 135 QT: 422 QTc: 469 Interpretive Statements SINUS RHYTHM LEFT VENTRICULAR HYPERTROPHY AND ST-T CHANGE MINIMAL Q WAVES- HIGH LATERAL LEADS BORDERLINE ST-T WAVE ABNORMALITY- ANTEROLAT/INF LEADS BASELINE WANDER- I, II BORDERLINE ECG NO PREVIOUS ECG AVAILABLE FOR COMPARISON Electronically Signed On 11-08-2022 12:18:39 EMBOSSING UNIT OPERATOR by Deshaun Johnson D.O.
--- NOTE | 2022-11-08 10:09 | PM.IMCN ---
Assessment and Plan Assessment and plan (1) Acute appendicitis: Code(s): K35.80 - Unspecified acute appendicitis Status: Acute (2) UTI (urinary tract infection): Code(s): N39.0 - Urinary tract infection, site not specified Status: Acute (3) Left kidney mass: Code(s): N28.89 - Other specified disorders of kidney and ureter Status: Acute (4) Type 2 diabetes mellitus with hyperglycemia: Qualifiers: Diabetes mellitus long-term insulin use: with filler leaf cutter long use Qualified Code(s): E11.65 - Type 2 diabetes mellitus with hyperglycemia; Z79.4 - shelter (current) use of insulin Code(s): E11.65 - Type 2 diabetes mellitus with hyperglycemia Status: Acute (5) Diabetic neuropathy: Code(s): E11.40 - Type 2 diabetes mellitus with diabetic neuropathy, unspecified Status: Acute (6) Hyperlipidemia associated with type 2 diabetes mellitus: Code(s): E11.69 - Type 2 diabetes mellitus with other specified complication; E78.5 - Hyperlipidemia, unspecified Status: Acute (7) Abnormal CT scan of lung: Code(s): R91.8 - Other nonspecific abnormal finding of lung field Status: Acute (8) HTN (hypertension), benign: Code(s): I10 - Essential (primary) hypertension Status: Acute Plan Patient has been admitted to medical/surgical floor. CT scan images were reviewed personally and are as detailed above. Radiology concurs with these findings. Will check renal ultrasound but patient may need further imaging regarding the left renal mass. Urinalysis noted but she had many squamous epithelial cells in the sample so suspect this is probably just contaminated specimen. We will follow up on the urine culture result and treat appropriately. She is currently on Zosyn which will continue. office note from August was reviewed personally. It appears that she has elevated blood pressure was systolic blood pressure 170. She does take hydralazine 10 mg t.i.d.. He appears Norvasc 5mg was initiated daily and with extra dose of Norvasc if her blood pressure is greater than 160. Will have nursing clarify home medication list. Hold insulin and Trulicity while NPO. In the office note in August, she actually was on mealtime insulin as well. Resume insulin regiment but she is back on her diabetic diet.Last A1c was 9.2 few months ago. Will not repeat at this time. Blood pressure has been reasonably well controlled since admission. Will continue to monitor. Resume home medications when able. Regarding the abnormal lung findings, exam is benign. Patient is asymptomatic. COVID and flu swabs are negative. Repeat chest x-ray in the morning. She is on antibiotics which should cover any atypical infections. further evaluation if symptoms develop. Will continue to follow along with you. Thank you so much for allowing me to be part of patient's care. HPI Data of Consult Consult date: 11/08/22 Requesting Physician: Dulce Maria Ndiaye MD Primary Care Provider: Cassandra Hernandez MD Consult Narrative Narrative: Consulted on Padmini Brown who is a 62 year old female with DM here for abdominal pain and found to have acute early appendicitis. Approximately 2 days prior to admission, patient developed right flank pain that has increased in severity. Nothing seems to make it better or worse. Pain is colicky. Tylenol was unhelpful. She had nocturnal diaphoresis. She denies any fever, chills, chest pain, shortness of breath, dysuria or hematuria. She has had some nausea but no vomiting. She had diarrhea for 1 day then has resolved. She also felt lightheaded. She had a headache prior to the onset of symptoms but this has resolved. For this reason she presented to the urgent care center and sent to the emergency room for evaluation. In the emergency room she had a CT of the abdomen pelvis which showed mildly dilated appendix with wall thickening which may reflect early or
--- NOTE | 2022-11-08 10:47 | PC.NURSE ---
to US/Xray per w/c
[2022-11-08 12:33] LABS: Glucose Point of Care 154 mg/dl (65-105)
--- NOTE | 2022-11-08 12:44 | PC.NURSE ---
patient to OR per stretcher. iv saline locked
[2022-11-08] MEDS: LACTATED RINGERS 1,000 ML 30 ML IV CONT ×2 (13:00→15:10)
--- NOTE | 2022-11-08 13:31 | WPDANESEPPF ---
Anes - Initial Pre Proc Eval Procedure: Operation Date: 11/08/22 14:00 Proposed Procedures p Laparoscopic Appendectomy - Dulce Maria Ndiaye MD Date/Time: 11/08/22 13:31 Surgeon: Dulce Maria Ndiaye MD Pre Op Diagnosis: appendicitis, UTI Patient Data Age: 62 Gender: F Height: 1.5 m Weight: 74.3 kg Last Vital Signs Temp 98.1 F 11/08/22 12:22 Pulse 70 11/08/22 12:22 Resp 18 11/08/22 12:22 BP 104/56 L 11/08/22 12:22 Pulse Ox 98 11/08/22 12:22 O2 Del Method Room Air 11/07/22 21:35 Allergies Allergy/AdvReac Type Severity Reaction Status Date / Time amlodipine Allergy Intermediate Joint Ache Verified 11/08/22 08:25 ciprofloxacin [From Cipro] Allergy Mild tongue Verified 11/07/22 14:07 swelling losartan Allergy Unknown Abdominal Verified 11/07/22 14:07 Pain MYCHAL Inhibitors AdvReac Intermediate angioedema Verified 11/07/22 14:07 Home Medications Medication Instructions Recorded Confirmed Type OneTouch Ultra Test (blood sugar #300 ea 07/02/21 11/08/22 Rx diagnostic) blood-glucose meter (OneTouch #1 ea 07/05/21 11/08/22 Rx Verio Flex Meter) pen needle, diabetic 31 gauge x #120 multiple units 10/22/21 11/08/22 Rx 1/4 (Comfort EZ Pen [place]) amlodipine 5 mg tablet 5 mg PO DAILY PRN Headache 11/07/22 11/08/22 History dulaglutide 4.5 mg/0.5 mL 4.5 mg subcut WEEKLY 11/07/22 11/08/22 History subcutaneous pen injector (Trulicity) furosemide 20 mg tablet 20 mg PO DAILY 11/07/22 11/08/22 History hydralazine 10 mg tablet 10 mg PO DAILY 11/07/22 11/08/22 History insulin glargine U-300 conc 300 70 unit subcut BID 11/07/22 11/08/22 History unit/mL (3 mL) subcutaneous pen (Toujeo Max U-300 SoloStar) pantoprazole 40 mg tablet,delayed 40 mg PO DAILY 11/07/22 11/08/22 History release aspirin 81 mg chewable tablet 81 mg PO PRN 11/08/22 11/08/22 History Laboratory Tests 11/07/22 11/07/22 11/07/22 15:09 15:09 21:17 WBC 12.0 K/mm3 H K/mm3 (4.5-10.0) RBC 4.72 M/mm3 M/mm3 (4.2-5.4) Hgb 13.8 g/dL g/dL (12.0-15.0) Hct 40.9 % % (37.0-47.0) MCV 86.7 fl fl (80-100) MCH 29.2 pg pg (26-34) MCHC 33.7 g/dl g/dl (32-36) RDW 13.1 % % (11.5-14.5) Plt Count 325 k/mm3 k/mm3 (150-375) MPV 10.8 fl H fl (7.4-10.4) Immature Gran % (Auto) 0.3 % % (0-0.5) Neut % (Auto) 56.9 % % (45.5-73.1) Lymph % (Auto) 36.9 % % (18.3-44.2) [place] % (Auto) 4.7 % % (2.6-8.5) Eos % (Auto) 0.8 % % (0-4.4) Baso % (Auto) 0.4 % % (0.2-1.2) Lymph # (Auto) 4.42 K/mm3 H K/mm3 (0.9-3.2) [place] # (Auto) 0.6 K/mm3 K/mm3 (0.1-0.6) Eos # (Auto) 0.1 K/mm3 K/mm3 (0-0.3) Baso # (Auto) 0.1 K/mm3 K/mm3 (0.0-0.1) Abs Immat Gran (auto) 0.03 K/mm3 K/mm3 (0.00-0.031) Absolute Neuts (auto) 6.8 K/mm3 H K/mm3 (1.3-6.7) Absolute Nucleated RBC 0.0 K/mm3 K/mm3 (0.0-0.012) Nucleated RBC % 0.0 % % (0.0-0.2) Sodium 142 mmol/L mmol/L (137-145) Potassium 3.1 mmol/L L mmol/L (3.4-5.0) Chloride 106 mmol/L mmol/L (98-107) Carbon Dioxide 26 mmol/L mmol/L (22-30) Anion Gap 10 mmol/L mmol/L (8-16) BUN 10 mg/dL mg/dL (7-17) Creatinine 0.70 mg/dL mg/dL (0.7-1.0) Estim Creat Clear Calc Not Reportable Estimated GFR > 60 (59 - ) Glucose 150 mg/dL H mg/dL (65-110) POC Capillary Glucose Calcium 9.1 mg/dL mg/dL (8.4-10.2) Total Bilirubin 0.7 mg/dL mg/dL (0.2-1.3) AST 29 U/L U/L (14-36) ALT 25 U/L U/L (6-35) Alkaline Phosphatase 87 U/L U/L (38-126) Total Protein 9.0 g/dL H g/dL (6.3-8.2) Albumin 4.6 g/dL g/dL (3.5-5.1) Lipase 66 U/L U/L (23-300) U
--- NOTE | 2022-11-08 13:45 | PM.IMHP ---
H&P: HPI History of Present Illness Date/Time: 11/08/22 13:45 Chief Complaint: acute appendicitis Narrative: Pt is a 62 y/o F presenting to ED c/o lower abd pain R>L. Pt reports pain has been present over last day or so and progressively worsening. Pt reports pain was initially more diffuse in nature and now more localized. Pt reports poor appetite and some nausea. Pt denies previous episodes. Review of Systems Constitutional: Constitutional: Reports as per HPI, Reports anorexia, Denies chills, Reports fatigue, Denies fever(s), Denies increased appetite, Reports lethargy, Reports malaise, Reports poor appetite, Denies weight gain and Denies weight loss Eyes: Eyes: Reports no additional eye complaints ENT: Reports system reviewed and no additional complaints, except as documented Cardiovascular: Cardiovascular: Reports no additional cardiovascular complaints Respiratory: Respiratory: Reports no additional respiratory complaints Gastrointestinal: Gastrointestinal: Reports as per HPI, Reports abdominal pain, Reports bloating, Reports GI cramping, Reports early satiety and Reports nausea Genitourinary: Genitourinary: Reports no additional female genitourinary complaints Musculoskeletal: Musculoskeletal: Reports no additional musculoskeletal complaints Integumentary/Breasts: Skin/Breast: Reports system reviewed and no additional complaints, except as docu Neurologic: Reports system reviewed and no additional complaints, except as documented Psychiatric: Psychiatric: Reports no additional psychiatric complaints Endocrine: Endocrine: Reports no additional endocrine complaints Hematologic/Lymphatic: Hematologic/Lymphatic: Reports no additional hematologic/lymphatic complaints Allergic/Immunologic: Allergic/Immunologic: Reports no additional allergic/immunologic complaints PMFSH Past Medical History Medical History Benign reactive hypertension vaginal deliveries Ganglion cyst of volar aspect of right wrist Heart attack Heart disease HTN (hypertension), benign Hyperlipidemia associated with type 2 diabetes mellitus Mitral valve prolapse Mixed hyperlipidemia Type 2 diabetes mellitus with diabetic chronic kidney disease Vitamin B2 deficiency Surgical History Surgical History H/O breast augmentation History of bilateral tubal ligation Hx of cholecystectomy S/P abdominoplasty S/P shoulder surgery Family History Family History Father Hypertension Family history of elevated blood lipids Family history of diabetes mellitus in first degree relative High cholesterol Mother Family history of malignant neoplasm of uterus, Onset Age: 49 Patient's mother is Sibling Gunshot wound Other Diabetes mellitus Family history of heart disease in male family member before age 55 Family history of malignant neoplasm Social History Social History Social History: Lives at home with her . She denies tobacco use. Rarely drinks alcohol. No drug use. No history of drug use. No history of heavy alcohol use. Was in the [employer] in [employer] [place] but did not complete this. 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 She nominates her to be the individual would make medical decisions for her if she is unable. Smoking status: Never smoker Second hand tobacco smoke exposure: No Alcohol intake: current Alcohol use details: occasionally Substance use: never Substance use type: does not use Lack of Transportation: No Lack of Food: Never True Current Housing: I Have Housing Concerned About Future Housing: No Difficulty Paying Gas/Electric Bills: No Difficulty Paying for Meds: YES 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on: Bachelor's Degree Difficulty w/ Childcare or Family Care: No
--- NOTE | 2022-11-08 13:50 | WPDHPUPDATE1 ---
History and Physical Update Update Date/Time: 11/08/22 13:50 History and Physical has been reviewed, including an updated exam of the patient. There are NO changes in the patient's condition. Risks, benefits, and alternatives have been discussed and questions answered. Patient agrees to proceed with procedure.
[2022-11-08] MEDS: BUPIVACAINE/EPINEPHRINE 0.5% 30 ML VIAL INFILTRATE (14:42)
--- NOTE | 2022-11-08 15:11 | P.OP_ITS ---
Procedure Note - Detailed Date of Procedure 11/08/22 Pre-op Diagnosis acute appendicitis Post-op Diagnosis Same Procedure Performed laparoscopic appendectomy Surgeon Dulce Maria Ndiaye MD Anesthesia General Indications 62 y/o F presenting to ED c lower abd pain. Workup, including CT, significant for early appendicitis. Findings injected, mildly dilated appendix, no perforation Description of Procedure The patient was taken to the operating room and placed in the supine position. After adequate induction of general anesthesia, the patient was prepped and draped in the normal sterile fashion. A time-out was then done to verify the patient's identity, as well as the procedure being performed. I began by making a 5 mm incision in the infraumbilical region, through this a Veress needle was placed in the peritoneal cavity. CO2 gas was then insufflated and after adequate pneumoperitoneum was achieved the Veress needle was removed. Then placed a 5 mm Optiview trocar under direct visualization into the peritoneal cavity. I then insufflated through this trocar site and the endoscope was placed into the trocar. Under direct visualization, placed 2 further 5 mm suprapubic port as well as an additional 12 mm port in the left lower abdomen. At this point identified the cecum, I retracted the cecum both medially and superiorly allowing me to expose the appendix. The appendix was noted to be mildly dilated and injected. The appendix was noted to be very adherent to the right lateral sidewall as well as the ileum. I was able to bluntly dissect the appendix from these adhesions. I then was able to locate the base of the appendix with the cecum. I created a window with the [place] dissector between the appendix itself and the mesoappendix. I then transected the mesoappendix with a white vascular staple load. The Endo-YELENA was then reloaded with a blue staple load and I transected the base of the appendix. Once the specimen was completely detached, an endo-pouch was placed into the 12 mm port site and the specimen was removed through the endo-pouch. The appendiceal specimen will be sent to pathology for further review. I then copiously irrigated the right lower quadrant. Hemostasis was noted at both staple lines no other pathology was seen in this area. I then moved the camera to the suprapubic port to check our its port of entry. No iatrogenic injury or other pathology was noted in the upper abdomen. I then closed the 12 mm port site with a Emmanuel code and 0 Vicryl suture under direct visualization. At this point, the abdomen was desufflated and all ports were removed. All port sites were closed with 4 Monocryl subcuticular suture. Dermabond was placed on all wounds. The patient tolerated the procedure well and was extubated in the operating room postop. Sh e will be sent to the recovery room in stable condition. Estimated Blood Loss 10 Drains No Packing No Pathology Yes Complications No immediate complications Condition Stable Disposition PACU [facility] Billing Surgery - Charge Forward: Surgery Billing
[2022-11-08 15:49] LABS: Glucose Point of Care 103 mg/dl (65-105)
[2022-11-08] MEDS: fentaNYL CITRATE INJ (*CRX) 100 MCG/2 ML VIAL 25 MCG IV PUSH ×2 (15:57→16:03)
--- NOTE | 2022-11-08 16:34 | PC.NURSE ---
patient returning to room from OR
[2022-11-08 17:22] LABS: Glucose Point of Care 192 mg/dl (65-105)
[2022-11-08] MEDS: HYDROcodone/acetaminophen (*CRX) 5-325 MG TABLET 1 TAB PO ×2 (17:34→21:33)
[2022-11-08] MEDS: INSULIN GLARGINE (*BKC) 100 UNITS/ML 56 UNITS SUB-Q (17:35)
[2022-11-08] MEDS: DOCUSATE SODIUM 100 MG CAPSULE PO (22:43)
[2022-11-09 00:26] VITALS: BP 143/54; PULSE 85; RESP 16; TEMP 36.6; O2SAT 97
[2022-11-09] MEDS: HYDROmorphone HCL INJ (*CRX) 1 MG/ML SYR IV PUSH ×2 (03:32→08:45)
[2022-11-09 05:00] VITALS: BP 137/62; PULSE 76; RESP 16; TEMP 36.8; O2SAT 95
[2022-11-09] MEDS: HYDROcodone/acetaminophen (*CRX) 5-325 MG TABLET 1 TAB PO (06:00)
[2022-11-09 07:10] LABS: Glucose Point of Care 151 mg/dl (65-105)
--- NOTE | 2022-11-09 07:41 | WPDANESPN ---
Anes - Prog Note Post-Op Date/Time: 11/09/22 07:41 Cardiovascular status: normal Respiratory status: normal Airway patency: baseline Mental status: baseline Post-Op hydration status: normal Vital Signs: Last Vital Signs Temp 98 F 11/09/22 00:26 Pulse 85 11/09/22 00:26 Resp 16 11/09/22 00:26 BP 143/54 H 11/09/22 00:26 Pulse Ox 97 11/09/22 00:26 O2 Del Method Room Air 11/08/22 20:00 O2 Flow Rate 8 11/08/22 15:30 Pain Score (VAS): 8 I/O: Intake & Output 11/08/22 11/08/22 11/09/22 15:59 23:59 07:59 Intake Total 1050 850 Output Total 800 Balance 1050 50 Laboratory Tests 11/07/22 15:09 11/07/22 15:09 11/08/22 11/08/22 11/08/22 08:01 12:25 15:37 POC Capillary Glucose 86 154 H 103 11/08/22 11/09/22 17:16 05:49 POC Capillary Glucose 192 H 151 H Microbiology 11/07/22 21:17 Unspecified Urine Culture - Preliminary Coag neg Staph, not saprophyti Post-procedural complaints: none Patient Feedback: Patient satisfied with anesthetic care.
[2022-11-09 08:29] LABS: Glucose Point of Care 142 mg/dl (65-105)
--- NOTE | 2022-11-09 08:32 | PM.IMPN ---
Progress Note: A&P Assessment and Plan (1) Acute appendicitis: Code(s): K35.80 - Unspecified acute appendicitis Status: Acute Assessment and Plan: per surgery (2) UTI (urinary tract infection): Code(s): N39.0 - Urinary tract infection, site not specified Status: Acute Assessment and Plan: will treat with Augmentin to complete a 7 day course (3) Left kidney mass: Code(s): N28.89 - Other specified disorders of kidney and ureter Status: Acute Assessment and Plan: per outpatient follow-up (4) Type 2 diabetes mellitus with hyperglycemia: Qualifiers: Diabetes mellitus extermination supervisor insulin use: with intermediate use Qualified Code(s): E11.65 - Type 2 diabetes mellitus with hyperglycemia; Z79.4 - FPC (current) use of insulin Code(s): E11.65 - Type 2 diabetes mellitus with hyperglycemia Status: Acute Assessment and Plan: will need close outpatient follow-up, talks of starting Ozempic with her PCP have been initiated (5) Diabetic neuropathy: Code(s): E11.40 - Type 2 diabetes mellitus with diabetic neuropathy, unspecified Status: Acute (6) Hyperlipidemia associated with type 2 diabetes mellitus: Code(s): E11.69 - Type 2 diabetes mellitus with other specified complication; E78.5 - Hyperlipidemia, unspecified Status: Acute (7) Abnormal CT scan of lung: Code(s): R91.8 - Other nonspecific abnormal finding of lung field Status: Acute Assessment and Plan: No further workup necessary (8) HTN (hypertension), benign: Code(s): I10 - Essential (primary) hypertension Status: Acute Assessment and Plan: Stable Plan DVT prophylaxis with SCDs GI prophylaxis not indicated Code status full code Subjective Date/time seen: 11/09/22 08:32 Interval history: No overnight events noted. No chest pain or shortness of breath. No nausea, vomiting or diarrhea. No fevers or chills. Patient is complaining of diffuse itching after the dilaudid injection. She is also noting darker urine with some dysuria and suprapubic discomfort. Review of Systems Review of Systems: 12 point review of systems was assessed and was negative except as noted in the HPI Exam Narrative: General: No acute distress, alert and oriented per baseline HEENT: Atraumatic, normocephalic, mucous membranes moist CV: Regular rate and rhythm, S1, S2 Lungs: Clear to auscultation bilaterally, no rales or crackles noted, no wheezes, good air entry Abdomen: Soft, nontender, nondistended, some tenderness to the suprapubic area Extremities: Normal to inspection Skin: No rashes noted, no lesions or wounds seen Psych: Euthymic, normal affect Objective Data Vital Signs Vital Signs: Vital Signs - 24 hr 11/08/22 12:22 11/08/22 15:15 11/08/22 15:30 Temperature 98.1 F 97.8 F Pulse Rate 70 92 89 Respiratory Rate 18 16 16 Blood Pressure 104/56 L 165/66 H 129/62 Pulse Oximetry 98 100 99 Oxygen Delivery Simple Face Mask Simple Face Mask Oxygen Flow Rate 8 8 11/08/22 15:45 11/08/22 16:00 11/08/22 16:45 Temperature 98.3 F Pulse Rate 90 82 83 Respiratory Rate 15 16 18 Blood Pressure 132/59 L 116/53 L 138/65 Pulse Oximetry 94 95 100 Oxygen Delivery Room Air Room Air Oxygen Flow Rate 11/08/22 17:00 11/08/22 17:30 11/08/22 18:30 Temperature 98.3 F 98.1 F 98.5 F Pulse Rate 87 81 85 Respiratory Rate 18 18 18 Blood Pressure 137/68 139/67 139/64 Pulse Oximetry 100 100 100 Oxygen Delivery Oxygen Flow Rate 11/08/22 20:00 11/09/22 00:26 11/09/22 05:00 Temperature 98 F 98.2 F Pulse Rate 85 76 Respiratory Rate 16 16 Blood Pressure 143/54 H 137/62 Pulse Oximetry 97 95 Oxygen Delivery Room Air Oxygen Flow Rate Intake/Output Intake/Output: Intake & Output 11/06/22 11/07/22 11/08/22 11/09/22 23:59 23:59 23:59 23:59 Intake Total 250 3750 150 Output Total 1000 550 B
[2022-11-09] MEDS: ASPIRIN 81 MG CHEWABLE TABLET PO (08:43)
[2022-11-09] MEDS: hydrALAZINE 10 MG TABLET PO (08:43)
[2022-11-09] MEDS: amLODIPine BESYLATE 5 MG TABLET PO (08:43)
[2022-11-09] MEDS: FUROSEMIDE 20 MG TABLET PO (08:43)
[2022-11-09] MEDS: PANTOPRAZOLE 40 MG TABLET PO (09:30)
[2022-11-09 11:22] VITALS: O2SAT 92
[2022-11-09 12:11] LABS: Glucose Point of Care 145 mg/dl (65-105)
--- NOTE | 2022-11-09 12:41 | PM.DS ---
DS: Admitting Diagnosis Discharge Date 11/09/2022 Admitting Diagnosis Acute appendicitis DS: Discharge Diagnosis Discharge Diagnosis (1) Acute appendicitis: Code(s): K35.80 - Unspecified acute appendicitis Status: Acute Assessment and Plan: status post lap appy, doing well, continue routine postoperative care, home with p.o. 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 insulin use: with press tender long goods use Qualified Code(s): E11.65 - Type 2 diabetes mellitus with hyperglycemia; Z79.4 - residential (current) use of insulin Code(s): E11.65 - Type 2 diabetes mellitus with hyperglycemia Status: Acute Assessment and Plan: stable, continue home medications and follow-up with PCP (3) HTN (hypertension), benign: Code(s): I10 - Essential (primary) hypertension Status: Acute Assessment and Plan: stable, continue home medications and follow-up with PCP DS: Summary Hospital Course Reason for hospitalization: acute appendicitis Hospital Course: The patient is a 62-year-old female presenting to the emergency department complaining of lower abdominal pain. Workup, including CT, was significant for acute appendicitis. Given these findings the patient was admitted to the surgical service and started on IV antibiotics. The patient was also made NPO and started on IV fluids. And medical consultation was obtained given the patient's other medical issues, including diabetes. Upon evaluation by surgery, the patient was urgently taken to the operating room and laparoscopic appendectomy was performed. Please see full operative report for details of that procedure. Postoperatively, the patient did well and was transferred back to the floor. She did complain of some incisional pain and difficulty ambulating and was kept overnight. She was able to tolerate a clear liquid diet and was advanced to a regular diet at the time of her discharge. At the time of her discharge she is up ambulating without difficulty and her pain is well controlled with p.o. analgesia. She will follow up with surgery in 2 weeks. Status at Discharge Functional status at discharge: independent ambulation Overall status at discharge: patient is progressing back to baseline Time Spent with Patient Time attestation: Total time spent providing and/or coordinating discharge services: Time spent: Less than 30 minutes Exam Const: General: cooperative, comfortable and no acute distress Orientation/consciousness: patient oriented x3 Resp: Auscultation: clear to auscultation bilaterally Cardio: Rate: regular rate Rhythm: regular rhythm GI: Inspection: normal to inspection, distended and incision GI Palp: Yes abdominal tenderness, Yes Tenderness to palpation present (GI), No Guarding due to palpation present (GI) and No Rigid due to palpation DS: Data Data Completed and Pending Pending studies at discharge: Pending at discharge 11/08/22 14:40 Surgical [PTH] Routine Labs on day of discharge: Labs from last 24 hours 11/09/22 11/09/22 11/09/22 12:01 08:26 05:49 POC Capillary Glucose 145 H 142 H 151 H 11/08/22 11/08/22 17:16 15:37 POC Capillary Glucose 192 H 103 Preliminary micro results at discharge 11/07/22 21:17 Urine Culture - Preliminary Unspecified Coag neg Staph, not saprophyti Discharge Plan Discharge Attending physician on discharge: Dulce Maria Ndiaye Consulting providers: Sheela Pimentel ; Bonnie Shine Discharging Clinician: Dulce Maria Ndiaye Anticipated Discharge Date/Time: 11/08/22 18:00 Patient Disposition: Home, Self-Care Activity: other - see discharge instructions Diet: other - see discharge instructions Wound Care Instructions: other - see discharge instructions Discharge Instructions: DISCHARGE INSTRUCTION SHEET FOR HERNIA, GALLBLADDER AND APPENDIX
--- NOTE | 2022-11-10 11:26 | PC.NURSE ---
Spoke with Dr. John regarding patient's urine cx results. Pt was dc on amoxicillin which was resistant. Dr. John sent in order for Macrobid for 7 days. Provider also called pt and left message regarding new medication.
== END 2022-11-09 14:50 | disposition home or self-care (01) ==
LOC: ANHED 22:47 → ANH3MEDSUR 23:43
PROVIDERS: Emergency Medicine; Admitting Provider Surgery; Emergency Provider Physician Assistant; PCP Family Medicine; Visit Provider Surgery
PROC: 0DTJ4ZZ Resection of Appendix, Percutaneous Endoscopic Approach (ICD-10-PCS; CPT 44970; principal; 2022-11-08 14:00)
DX: K35.80 Unspecified acute appendicitis (principal); E11.65 Type 2 diabetes mellitus with hyperglycemia; E11.43 Type 2 diabetes mellitus with diabetic autonomic (poly)neuropathy; I11.9 Hypertensive heart disease without heart failure; N39.0 Urinary tract infection, site not specified; N28.89 Other specified disorders of kidney and ureter; Z20.822 Contact with and (suspected) exposure to COVID-19; E11.69 Type 2 diabetes mellitus with other specified complication; E78.5 Hyperlipidemia, unspecified; R91.8 Other nonspecific abnormal finding of lung field; N28.1 Cyst of kidney, acquired; E53.0 Riboflavin deficiency; Z79.4 Long term (current) use of insulin; Z79.85 Long-term (current) use of injectable non-insulin antidiabetic drugs; Z79.82 Long term (current) use of aspirin; Z79.899 Other long term (current) drug therapy
CPT/HCPCS: 44970; 36415; 71046; 74177; 76775; 80053; 81001; 82948; 83690; 85025; 87086; 87147; 87181; 87186; 87636; 88304; 93005; 96361; 96365; 96366; 96374; 96375; 96376; 99285; A9270; G0378; J0330; J1170; J1815; J2250; J2270; J2405; J2543; J2704; J3010; J7030; J7120; Q9967

== ENCOUNTER 2022-12-12 09:33 | Outpatient (CLI) | payer OTHER, SELFPAY ==
--- NOTE | ~2022-12-12 | MM_ITS ---
EXAMINATION: MM diagnostic dariusz BI w kristi HISTORY: Bilateral intermittent breast pain TECHNIQUE: ML, MLO and CC 3-D tomosynthesis images of both breasts were performed and synthetic 2-D i mages were generated. CAD analysis was submitted and interpreted. COMPARISON: 03/16/2021, 12/06/2013ilateral screening mammogram examinations BREAST PARENCHYMAL COMPOSITION: The breasts are almost entirely fatty. FINDINGS: Numerous sebaceous calcifications. No suspicious mass or architectural distortion, malignan t calcification, skin thickening or retraction or significant new or developing density is detected. IMPRESSION: 1. No mammographic evidence of malignancy 2. Routine mammographic screening is recommended BI-RADS Category 2: Benign finding(s). Reviewed, dictated and finalized at location A. IAL AGENT
--- NOTE | ~2022-12-12 | DEXA_ITS ---
Bone Density Report Name: ALIA QUARLES Age: 62 Sex: Female Ethnicity: Black Date of : 1960 Indication: postmenopausal; screening for osteoporosis; rheumatoid arthritis; Referring Provider: DEBORAH, VON Balbuena Study: Bone densitometry was performed. Exam Date: December 12, 2022 Accession number: [id number] Bone Density: Region BMD T-score Z-score Classification AP Spine (L1-L4) 1.202 1.4 2.3 Normal Femoral Neck (Left) 1.153 2.7 2.6 Normal Total Hip (Left) 1.205 2.2 2.0 Normal Femoral Neck (Right) 1.084 2.1 2.1 Normal Total Hip (Right) 1.115 1.4 1.4 Normal Total Hip Mean 1.160 1.8 1.7 Normal World Health Organization criteria for BMD impression classify patients as: Normal (T-score at or above -1.0), Osteopenia (T-score between -1.0 and -2.5), or Osteoporosis (T-score at or below -2.5). 10-year Fracture Risk: FRAX not reported because: All T-scores for Spine Total, Hip Total, Femoral Neck at or above -1.0 Previous Exams: Region Exam Age BMD T-score BMD Change BMD Change Date g/cm2 vs Baseline vs Previous AP Spine(L1-L4) 12/12/2022 62 1.202 1.4 -0.004 -0.004 12/06/2013 53 1.206 1.4 Total Hip(Left) 12/12/2022 62 1.205 2.2 -0.121* -0.121* 12/06/2013 53 1.326 3.1 Total Hip(Right) 12/12/2022 62 1.115 1.4 -0.131* -0.131* 12/06/2013 53 1.246 2.5 *Denotes significance at 95% confidence level, LSC for AP Spine = 0.022 g/cm2, LSC for Total Hip = 0.027 g/cm2 Clinical Information Provided by Patient: Has rheumatoid arthritis Has used the following medications: Vitamin D, MTV Patient maximum height was 59 Menopause Age: 49 Does not regularly consume dairy products Drinks caffeinated beverages Onset of menses at age 9 Number of children 2 Impression: The patient has normal bone mass. The BMD for the Total Hip(Left) decreased, changing by -0.121 since the last DXA exam. The BMD for the Total Hip(Right) decreased, changing by -0.131 since the last DXA exam. Discussion: LOW RISK OF FRACTURE; BONE DENSITY IS WELL ABOVE THE MINIMUM DESIRABLE LEVEL AND ABOVE AVERAGE FOR AGE AND SEX AT ALL SKELETAL SITES TESTED. This person's bone density is above expected limits for age and sex. This is rarely clinically significant, but should be pursued if there are significant musculoskeletal complaints. The patient should follow a healthful lifestyle (good nutrition with adequate calcium and
== END 2022-12-12 09:34 ==
PROVIDERS: PCP Family Medicine; Visit Provider Nurse Practitioner
DX: Z13.820 Encounter for screening for osteoporosis (principal); N64.4 Mastodynia
CPT/HCPCS: 77062; 77066; 77080; G0279

== ENCOUNTER 2023-03-27 08:53 | Outpatient (CLI) | payer OTHER, SELFPAY ==
--- NOTE | ~2023-03-27 | XR_ITS ---
EXAMINATION: XR chest 2V DATE: 03/27/2023 09:26 INDICATION: Shortness of breath TECHNIQUE: PA and lateral views of the chest are obtained. COMPARISON: 11/08/2022 FINDINGS: The lungs are free of acute opacities. No pleural effusion or pneumothorax. The cardiomedia stinal silhouette is normal. There is mild thoracic spondylosis. Surgical clips in the right upper qu adrant are likely from prior cholecystectomy. IMPRESSION: 1. No acute cardiopulmonary abnormality. Reviewed, dictated and finalized at location A.
== END 2023-03-27 08:54 ==
LOC: MICIMG 08:54
PROVIDERS: PCP Family Medicine; Visit Provider Nurse Practitioner Gerontology
DX: R06.09 Other forms of dyspnea (principal)
CPT/HCPCS: 71046

== ENCOUNTER 2023-06-30 00:37 | Day surgery (SDC) | payer OTHER, SELFPAY ==
[2023-06-23 15:34] VITALS: BMI 33.6
[2023-06-30 06:55] VITALS: BP 142/54; PULSE 60; RESP 18; TEMP 36.2; O2SAT 100
[2023-06-30] MEDS: LACTATED RINGERS 1,000 ML 150 ML IV CONT (07:04)
--- NOTE | 2023-06-30 07:05 | SUR.PREOP ---
blood sugar 117 per Ashley monitor
--- NOTE | 2023-06-30 07:21 | WPDANESEPPF ---
Anes - Initial Pre Proc Eval Procedure: Operation Date: 06/30/23 08:00 Proposed Procedures p Esophagogastroduodenoscopy - Torsten Stoll MD Date/Time: 06/30/23 07:21 Surgeon: Torsten Stoll MD Pre Op Diagnosis: Gastroparesis Patient Data Age: 62 Gender: F Height: 1.5 m Weight: 76.2 kg Last Vital Signs Temp 36.2 C L 06/30/23 06:55 Pulse 60 06/30/23 06:55 Resp 18 06/30/23 06:55 BP 142/54 H 06/30/23 06:55 Pulse Ox 100 06/30/23 06:55 O2 Del Method Room Air 06/30/23 06:55 Allergies Allergy/AdvReac Type Severity Reaction Status Date / Time ciprofloxacin [From Cipro] Allergy Severe tongue Verified 06/30/23 06:52 swelling amlodipine Allergy Intermediate Joint Ache Verified 06/30/23 06:52 losartan Allergy Intermediate Abdominal Verified 06/30/23 06:52 Pain MYCHAL Inhibitors AdvReac Intermediate angioedema Verified 06/30/23 06:52 Home Medications Medication Instructions Recorded Confirmed Type amlodipine 5 mg tablet 5 mg PO DAILY 11/07/22 06/23/23 History hydralazine 10 mg tablet 10 mg PO DAILY 11/07/22 06/23/23 History insulin glargine U-300 conc 300 70 unit subcut BID 11/07/22 06/23/23 History unit/mL (3 mL) subcutaneous pen (Toujeo Max U-300 SoloStar) aspirin 81 mg chewable tablet 81 mg PO DAILY 03/27/23 06/23/23 History blood-glucose sensor (FreeStyle #1 ea 04/22/23 06/08/23 Rx Ashley 3 Sensor device) blood-glucose sensor (FreeStyle #3 ea 04/24/23 06/08/23 Rx Ashley 3 Sensor device) furosemide 20 mg tablet See Rx Instructions .Route 05/03/23 06/23/23 Rx .COMPLEX #30 tabs insulin lispro 100 unit/mL 10 unit (0.1 mL) subcut TID #3 mL 06/02/23 06/23/23 Rx subcutaneous pen (Humalog KwikPen (U-100) Insulin) semaglutide 0.25 mg or 0.5 mg (2 0.5 mg (0.736 mL) subcut WEEKLY #3 06/02/23 06/23/23 Rx mg/3 mL) subcutaneous pen injector mL (Ozempic) rosuvastatin 40 mg tablet (Crestor) 40 mg PO DAILY #90 tabs 06/14/23 06/23/23 Rx pantoprazole 40 mg tablet,delayed 40 mg PO DAILY #90 tabs 06/16/23 06/23/23 Rx release docusate sodium 100 mg capsule 100 mg PO DAILY 06/23/23 06/23/23 History (Colace) linaclotide 145 mcg capsule 145 mcg PO QAM PRN Constipation 06/23/23 06/23/23 History (Linzess) Patient hx anesthesia problems: none Family hx anesthesia problems: none Results Review: All pre-operative results and documents have been reviewed as part of the pre-operative evaluation. [facility] Past Medical History Medical History Benign reactive hypertension vaginal deliveries Ganglion cyst of volar aspect of right wrist Heart attack Heart disease HTN (hypertension), benign Hyperlipidemia associated with type 2 diabetes mellitus Mitral valve prolapse Mixed hyperlipidemia Type 2 diabetes mellitus with diabetic chronic kidney disease Vitamin B2 deficiency Surgical History Surgical History H/O breast augmentation History of bilateral tubal ligation Hx of cholecystectomy S/P abdominoplasty S/P shoulder surgery Family History Family History Father Hypertension Family history of elevated blood lipids Family history of diabetes mellitus in first degree relative High cholesterol Mother Family history of malignant neoplasm of uterus, Onset Age: 49 Patient's mother is Sibling Gunshot wound Other Diabetes mellitus Family history of heart disease in male family member before age 55 Family history of malignant neoplasm Social History Social History Social History: Lives at home with her . She denies tobacco use. Rarely drinks alcohol. No drug use. No history of drug use. No history of heavy alcohol use. 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 She
--- NOTE | 2023-06-30 07:54 | PM.HPGS ---
History of Present Illness History of Present Illness Consent: Risks, benefits, and alternatives have been discussed and questions answered. Patient agrees to proceed with procedure. Chief complaint: Gastroparesis Narrative: Padmini Brown is a 62 year old female with uncontrolled DM, intermittent abdominal pain after eating and sometimes nausea, never had EGD, using ppi. CT scan a/p showed gastritis Review of Systems Constitutional: Constitutional: Denies headache(s) and Denies weakness Eyes: Eyes: Denies blurry vision ENT: Reports Normal hearing present, Denies headache(s) and Denies neck pain Cardiovascular: Cardiovascular: Denies chest pain and Denies dyspnea Respiratory: Respiratory: Denies dyspnea Gastrointestinal: Gastrointestinal: Reports no additional gastrointestinal complaints Genitourinary: Genitourinary: Denies dysuria Musculoskeletal: Musculoskeletal: Denies neck pain Integumentary/Breasts: Skin/Breast: Denies dry skin Neurologic: Reports Normal hearing present, Denies headache(s) and Denies weakness Psychiatric: Psychiatric: Denies anxiety Endocrine: Endocrine: Denies change in body appearance Hematologic/Lymphatic: Hematologic/Lymphatic: Denies easy bleeding Allergic/Immunologic: Allergic/Immunologic: Denies urticaria PMFSH Past Medical History Medical History Benign reactive hypertension vaginal deliveries Ganglion cyst of volar aspect of right wrist Heart attack Heart disease HTN (hypertension), benign Hyperlipidemia associated with type 2 diabetes mellitus Mitral valve prolapse Mixed hyperlipidemia Type 2 diabetes mellitus with diabetic chronic kidney disease Vitamin B2 deficiency Surgical History Surgical History H/O breast augmentation History of bilateral tubal ligation Hx of cholecystectomy S/P abdominoplasty S/P shoulder surgery Family History Family History Father Hypertension Family history of elevated blood lipids Family history of diabetes mellitus in first degree relative High cholesterol Mother Family history of malignant neoplasm of uterus, Onset Age: 49 Patient's mother is Sibling Gunshot wound Other Diabetes mellitus Family history of heart disease in male family member before age 55 Family history of malignant neoplasm Social History Social History Social History: Lives at home with her . She denies tobacco use. Rarely drinks alcohol. No drug use. No history of drug use. No history of heavy alcohol use. 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 She nominates her to be the individual would make medical decisions for her if she is unable. Smoking status: Never smoker Second hand tobacco smoke exposure: No Alcohol intake: never Alcohol use details: occasionally Substance use: never Substance use type: does not use Lack of Transportation: No Lack of Food: Never True Current Housing: I Have Housing Concerned About Future Housing: No Difficulty Paying Gas/Electric Bills: No Difficulty Paying for Meds: YES 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on: Bachelor's Degree Difficulty w/ Childcare or Family Care: No Living arrangements: with family Occupation/Education: retired Gender identity (if verbalized by the patient): Female Sexual Orientation (if Verbalized by the Patient): Straight or Heterosexual Spiritual care concerns: No Meds Home Medications and Allergies Home Medications Medication Instructions Recorded Confirmed Type amlodipine 5 mg tablet 5 mg PO DAILY 11/07/22 06/23/23 History hydralazine 10 mg tablet 10 mg PO DAILY 11/07/22 06/23/23 History insulin glargine U-300 conc 300 70 unit subcut BID 11/07/22 0
[2023-06-30 08:09] VITALS: BP 106/61; PULSE 70; RESP 25; O2SAT 100
[2023-06-30 08:19] VITALS: BP 121/63; PULSE 68; RESP 19; O2SAT 100
[2023-06-30 08:29] VITALS: BP 104/60; PULSE 63; RESP 15; O2SAT 98
== END 2023-06-30 08:32 | disposition home or self-care (01) ==
PROVIDERS: PCP Family Medicine; Visit Provider Internal Medicine Gastroenterology
PROC: 0DJ08ZZ Inspection of Upper Intestinal Tract, Via Natural or Artificial Opening Endoscopic (ICD-10-PCS; CPT 43235; principal; 2023-06-30 08:00)
DX: K29.50 Unspecified chronic gastritis without bleeding (principal); B96.81 Helicobacter pylori [H. pylori] as the cause of diseases classified elsewhere; K31.84 Gastroparesis; I13.10 Hypertensive heart and chronic kidney disease without heart failure, with stage 1 through stage 4 chronic kidney disease, or unspecified chronic kidney disease; E11.22 Type 2 diabetes mellitus with diabetic chronic kidney disease; N18.9 Chronic kidney disease, unspecified; I25.2 Old myocardial infarction; E78.2 Mixed hyperlipidemia; I34.1 Nonrheumatic mitral (valve) prolapse; Z79.4 Long term (current) use of insulin; Z79.82 Long term (current) use of aspirin; E66.9 Obesity, unspecified; Z68.33 Body mass index [BMI] 33.0-33.9, adult
CPT/HCPCS: 43239; 88305; J2704; J7120

== ENCOUNTER 2023-07-13 09:06 | Outpatient (CLI) | payer OTHER, SELFPAY ==
--- NOTE | ~2023-07-13 | NM_ITS ---
EXAM: NM gastric emptying study DATE: 07/13/2023 13:49 INDICATION: Periumbilical pain TECHNIQUE: A gastric emptying study was performed using the methodology of Eusebia JUÁREZ, et al. J Nucl Med 2007; 48:568-572. The patient was given a meal consisting of 2 scrambled eggs labeled with 1.0 m Ci Tc-99m sulfur colloid, 2 slices of toast, two packages of jam, and approximately 120 mL of water. Simultaneous anterior and posterior 1-min images of the abdomen were obtained with the patient supine at multiple time points over a total period of 4 hours. The geometric mean of anterior and posterior views was determined, and the percentage retention was calculated for each time point. COMPARISON: None. FINDINGS: Gastric retention of the radiotracer-labeled meal was 66%, 45%, and 31% at the 1-hour, 2-hour, and 4- hour time points, respectively. With this technique, apparent rapid gastric emptying is suggested by <30% gastric retention at 1 hour. Delayed gastric emptying is defined by gastric retention of >90% at 1 hour, >60% retention at 2 hours, or >10% retention at 4 hours. IMPRESSION: 1. Delayed gastric emptying. Reviewed, dictated and finalized at location A.
== END 2023-07-13 09:07 | disposition home or self-care (01) ==
PROVIDERS: PCP Family Medicine; Visit Provider Internal Medicine Gastroenterology
DX: R10.33 Periumbilical pain (principal); K30 Functional dyspepsia
CPT/HCPCS: 78264; A9541

== ENCOUNTER 2023-09-19 10:18 | Outpatient (CLI) | payer OTHER, SELFPAY ==
[2023-09-22 02:04] LABS: H pylori Ag Stool Detected (Not Detected)
== END 2023-09-19 10:19 | disposition home or self-care (01) ==
LOC: ANHLAB 10:19
PROVIDERS: PCP Family Medicine; Visit Provider Internal Medicine Gastroenterology
DX: K29.70 Gastritis, unspecified, without bleeding (principal); B96.81 Helicobacter pylori [H. pylori] as the cause of diseases classified elsewhere
CPT/HCPCS: 87338

== ENCOUNTER 2024-01-17 17:14 | Outpatient (CLI) | payer OTHER, SELFPAY ==
[2024-01-23 06:21] LABS: H pylori Ag Stool Not Detected (Not Detected)
== END 2024-01-17 17:15 | disposition home or self-care (01) ==
LOC: ANHLAB 17:15
PROVIDERS: PCP Family Medicine; Visit Provider Internal Medicine Gastroenterology
DX: K29.70 Gastritis, unspecified, without bleeding (principal); B96.81 Helicobacter pylori [H. pylori] as the cause of diseases classified elsewhere
CPT/HCPCS: 87338

== ENCOUNTER 2024-04-09 17:03 | Outpatient (CLI) | payer OTHER, SELFPAY ==
--- NOTE | ~2024-04-09 | XR_ITS ---
XR abdomen obstructive series Ordering provider: Cassandra Hernandez MD History: . RT LWR ABD PAIN X 2 WKS. LAST BM X 2 WKS . Comparison: September 01, 2021 FINDINGS: BOWEL: Nonobstructive bowel gas pattern. ORGANOMEGALY: None. SIGNIFICANT PATHOLOGIC CALCIFICATIONS: None. OTHER: No free air is seen under the diaphragm. Status post cholecystectomy. Bilateral hip osteoarthritic changes. Degenerative spine. IMPRESSION: NO ACUTE ABDOMINAL FINDINGS. Reviewed, dictated and finalized at location A.
== END 2024-04-09 17:04 | disposition home or self-care (01) ==
LOC: ANHIMG 17:06
PROVIDERS: PCP Family Medicine; Visit Provider Family Medicine
DX: R10.31 Right lower quadrant pain (principal); R14.0 Abdominal distension (gaseous); Z90.49 Acquired absence of other specified parts of digestive tract
CPT/HCPCS: 74019

== ENCOUNTER 2024-07-23 10:30 | Outpatient (RCR) | payer OTHER, SELFPAY ==
[2024-06-27 09:50] VITALS: BMI 35.3
[2024-06-27 10:02] VITALS: BMI 35.3
== END 2024-09-16 10:59 | disposition home or self-care (01) ==
LOC: ANHDMC 10:30
PROVIDERS: PCP Family Medicine; Visit Provider Internal Medicine
DX: E11.22 Type 2 diabetes mellitus with diabetic chronic kidney disease (principal); E11.65 Type 2 diabetes mellitus with hyperglycemia; E11.43 Type 2 diabetes mellitus with diabetic autonomic (poly)neuropathy; K31.84 Gastroparesis; Z71.3 Dietary counseling and surveillance; Z71.89 Other specified counseling
CPT/HCPCS: 97802; G0108

== ENCOUNTER 2024-08-22 08:24 | Outpatient (CLI) | payer OTHER, SELFPAY ==
--- NOTE | ~2024-08-22 | XR_ITS ---
EXAMINATION: XR lumbar spine 2-3V DATE: 08/22/2024 08:47 INDICATION: Low back pain, unspecified. TECHNIQUE: 3 views of lumbar spine were obtained. COMPARISON: None. FINDINGS: There is 3 degrees dextrocurvature of thoracolumbar spine. Vertebral body heights are yanira l. There is mildly decreased disc height at L4-L5. There is multilevel [id number] facet joint o steoarthritis. Surgical clips in the right upper quadrant are likely from cholecystectomy. IMPRESSION: 1. Mild lumbar spondylosis. Reviewed, dictated and finalized at location A. 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 Mild lumbar spondylosis.
== END 2024-08-22 08:25 | disposition home or self-care (01) ==
PROVIDERS: PCP Family Medicine; Visit Provider Family Medicine
DX: M43.06 Spondylolysis, lumbar region (principal)
CPT/HCPCS: 72100

== ENCOUNTER 2024-09-26 13:11 | Outpatient (CLI) | payer OTHER, MEDICARE, SELFPAY ==
--- NOTE | ~2024-09-26 | MR_ITS ---
EXAMINATION: MR lumbar spine wo con DATE: 09/26/2024 14:11 INDICATION: Other symptoms and signs involving the musculoskeletal system. Leg weakness. TECHNIQUE: Magnetic resonance imaging (MRI) of the lumbar spine was performed without intravenous con trast. Sequences included sagittal T2-weighted FSE, sagittal T2-weighted FS FSE, sagittal T1-weighted FSE, and axial T2-weighted FSE. COMPARISON: Lumbar spine radiographs 08/22/2024 FINDINGS: There is 3 mm anterolisthesis of L4 on L5. Vertebral body heights are normal. Intervertebra l disc heights are normal. Epidural lipomatosis is noted. The distal spinal cord signal intensity is normal. The conus medullaris is at L2. There is a 3.1 cm cyst in left kidney. The following disc leve ls are specifically discussed: L1-L2: The disc does not extend beyond the endplate margin. There is mild right and moderate left fac et joint osteoarthritis. There is no neural foraminal stenosis. There is no central canal stenosis. L2-L3: The disc does not extend beyond the endplate margin. There is mild bilateral facet joint osteo arthritis. There is no neural foraminal stenosis. There is no central canal stenosis. L3-L4: The disc does not extend beyond the endplate margin. There is moderate right and severe left f acet joint osteoarthritis. There is mild left neural foraminal stenosis. There is no central canal st enosis. L4-L5: The disc is bulging. There is severe bilateral facet joint osteoarthritis. There is mild bilat eral neural foraminal stenosis. There is mild central canal stenosis. L5-S1: The disc is bulging and has an annular fissure. There is severe bilateral facet joint osteoart hritis. There is a 4 mm synovial cyst from the right facet joint in the epidural space. There is no n eural foraminal stenosis. There is mild central canal stenosis. IMPRESSION: 1. Mild lumbar spondylosis. Reviewed, dictated and finalized at location A. 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 Mild lumbar spondylosis.
== END 2024-09-26 13:12 | disposition home or self-care (01) ==
PROVIDERS: PCP Family Medicine; Visit Provider Family Medicine
DX: R29.898 Other symptoms and signs involving the musculoskeletal system (principal); M43.06 Spondylolysis, lumbar region
CPT/HCPCS: 72148

== ENCOUNTER 2024-10-01 07:40 | Outpatient (CLI) | payer MEDICARE, SELFPAY ==
--- NOTE | ~2024-10-01 | MM_ITS ---
EXAMINATION: MM diagnostic dariusz BI w kristi HISTORY: Right areolar pain TECHNIQUE: Additional 3-D tomosynthesis images of the breasts were performed and synthetic 2-D images were generated. CAD analysis was submitted and interpreted. COMPARISON: Comparison to multiple prior studies sequentially, with oldest reviewed study dated 12/06. BREAST PARENCHYMAL COMPOSITION: Not dense: There are scattered areas of fibroglandular density. FINDINGS: The breasts are stable. No new masses, calcifications or architectural distortion in either breast to suggest malignancy. IMPRESSION: 1. No mammographic evidence for malignancy in either breast. 2. Routine yearly screening mammogram and regular clinical breast examination are recommended. BI-RADS Category 1: Negative Reviewed, dictated and finalized at location B. [facility] IN NURSING IMPRESSION: 1. No mammographic evidence for malignancy in either breast. 2. Routine yearly screening mammogram and regular clinical breast examination a re recommended. BI-RADS Category 1: Negative
== END 2024-10-01 07:41 | disposition home or self-care (01) ==
LOC: MICIMG 07:41
PROVIDERS: PCP Family Medicine; Visit Provider Student in an Organized Health Care Education/Training Program
DX: N64.4 Mastodynia (principal)
CPT/HCPCS: 77062; 77066; G0279

== ENCOUNTER 2024-10-17 17:29 | Emergency (ER) | payer MEDICARE, OTHER, SELFPAY ==
--- NOTE | ~2024-10-17 | XR_ITS ---
XR humerus LT Ordering provider: Cynthia Bansal APRN History: . possible foreign body, needle from dexcom gluclose monitor . Comparison: None. FINDINGS: BONES: No acute fracture or dislocation. JOINT SPACES: Osteoarthritic changes of the acromioclavicular joint SOFT TISSUES: Normal. No radiopaque foreign bodies. IMPRESSION: No acute osseous abnormality left humerus. No definite radiopaque foreign bodies seen. Reviewed, dictated and finalized at location A. MOTIVE ARTIST IMPRESSION: No acute osseous abnormality left humerus. No definite radiopaque foreign chris s seen.
[2024-10-17 17:39] VITALS: BP 169/74; PULSE 83; RESP 16; TEMP 36.5; O2SAT 100
--- NOTE | 2024-10-17 17:39 | ED_ITS ---
HPI - Skin/Abscess/Foreign Bdy General Chief complaint: Skin/Abscess/Foreign Body Stated complaint: sensor needle stuck in left arm Time Seen by Provider: 10/17/24 17:34 Source: patient Mode of arrival: ambulatory Limitations: no limitations History of Present Illness HPI narrative: Patient is a 64-year-old female who presents sensation of foreign body and arm. Patient removed DEXCOM and states plastic needle is still in arm. Was told by company to come to the emergency department. Reports tenderness on palpation but no drainage, redness or swelling to area. Related Data Home Medications ?Medication ?Instructions ?Recorded ?Confirmed ?Last Taken ?Type aspirin 81 mg chewable tablet 81 mg PO DAILY 03/27/23 10/17/24 Unknown History Allergies Allergy/AdvReac Type Severity Reaction Status Date / Time ciprofloxacin (From Cipro) Allergy Severe tongue Verified 10/17/24 18:12 swelling losartan Allergy Intermediate Abdominal Verified 10/17/24 18:12 Pain MYCHAL Inhibitors AdvReac Intermediate angioedema Verified 10/17/24 18:12 Review of Systems 2 Review of Systems: All systems reviewed & are unremarkable except as noted in HPI and below Constitutional: Constitutional: Denies body ache(s), Denies chills, Denies fatigue, Denies fever(s), Denies headache(s), Denies malaise and Denies weakness Eyes: Eyes: Denies blurry vision, Denies irritation and Denies loss of vision ENT: Denies otalgia, Denies headache(s), Denies nasal discharge, Denies sinus pain and Denies sore throat Cardiovascular: Cardiovascular: Denies chest pain, Denies irregular heart rhythm and Denies dyspnea Respiratory: Respiratory: Denies dyspnea Gastrointestinal: Gastrointestinal: Denies abdominal pain, Denies melena, Denies hematochezia, Denies diarrhea, Denies nausea and Denies vomiting Musculoskeletal: Musculoskeletal: Denies back pain, Denies myalgias and Denies arthralgias Integumentary/Breasts: Skin/Breast: Denies pruritus, Denies rash and Reports other (Foreign body and skin) Neurologic: Denies headache(s), Denies loss of vision and Denies weakness Psychiatric: Psychiatric: Reports no additional psychiatric complaints Endocrine: Endocrine: Denies fatigue PMFSH Past Medical History Medical History Adenomatous colon polyp Helicobacter positive gastritis HTN (hypertension), benign vaginal deliveries Acute appendicitis Mitral valve prolapse Heart disease Mixed hyperlipidemia Ganglion cyst of volar aspect of right wrist Heart attack Vitamin B2 deficiency Benign reactive hypertension Hyperlipidemia associated with type 2 diabetes mellitus Type 2 diabetes mellitus with diabetic chronic kidney disease Surgical History Surgical History Hx of cholecystectomy H/O breast augmentation History of bilateral tubal ligation S/P shoulder surgery S/P abdominoplasty Family History Family History Father Hypertension Family history of elevated blood lipids Family history of diabetes mellitus in first degree relative High cholesterol Mother Family history of malignant neoplasm of uterus, Onset Age: 49 Patient's mother is Sibling Gunshot wound Other Diabetes mellitus Family history of heart disease in male family member before age 55 Family history of malignant neoplasm Social History Social History Social History: Lives at home with her . She denies tobacco use. Rarely drinks alcohol. No drug use. No history of drug use. No history of heavy alcohol use. 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 She nominates her to be the individual would make medical decisions for her if she is unable. Smoking status: Never smoker Second hand tobacco smoke exposure: No Alcohol intake: never Alcohol use details: occasionally Substance use: never Substance use type: does not use Do You Feel Safe in your Home?: Yes Lack of Transportation: No Lack of Food: Never True Current Housing: I Have Housing Concerned About Future Housing: No Difficulty Paying Gas/Electric Bills: No Difficulty Paying for Meds: YES Currently Unemployed: YES Education: Bachelor's Degree Difficulty w/ Childcare or Family Care: No Living arrangements: with family Occupation/Education: retired Gender identity (if verbalized by the patient): Female Sexual Orientation (if Verbalized by the Patient): Straight or Heterosexual Spiritual care concerns: No Comments At time of signature, agree with nursing past medical, surgical, social and family history. There is no relevant family history pertinent to the presenting complaint. Exam 2 Const: General: cooperative, healthy appearing, comfortable, no acute distress and well nourished Nutritional Appearance: well nourished O rientation/consciousness: patient oriented x3 Limitations: no limitations HENMT: Head: normal to inspection, normocephalic and atraumatic Ears: h earing grossly normal bilaterally and external ears normal Face/Nose/Sinus: N ormal external nose present, normal facial exam and face symmetric Face and sinus: normal facial exam and face symmetric Mouth: Yes lip normal Eyes: General: appearance normal, both eyes and all related structures A lignment and Position: alignment normal and position normal Periorbital: p eriorbital findings normal Eyelids: eyelids normal Pupils: Equal, round and reactive pupils present EOM: EOMs intact bilaterally Neck: Neck: normal visual inspection, full ROM and supple Chest: Chest palpation & inspection: normal inspection of the chest Resp: Effort & Inspection: normal respiratory effort and able to speak in complete sentences Auscultation: clear to auscultation bilaterally Cardio: Rate: regular rate Rhythm: regular rhythm Heart sounds: S1 normal heart sound present and S2 normal heart sound present GI: Inspection: normal to inspection Skin: General skin exam: normal color and no rashes or lesions noted Neuro: General: patient oriented x3 and moves all extremities Cranial nerves: Yes Equal, round and reactive pupils present Speech: normal speech Gait exam (Neuro): Normal gait present Extrem: General: normal to inspection, full ROM and no edema Shoulder/upper arm images: 1. Foreign body felt under skin. Psych: Appearance: grossly normal and well kempt Mental Status: mental status grossly normal Speech and movement: Normal speech and movement present Affect: normal affect Attitude: cooperative Thought process: Normal thought process present Course Course Emergency Course: Patient is aware of diagnosis, understands and agrees to treatment plan. Anticipatory guidance given. Patient agrees to follow-up as directed and is aware of reasons to seek care at the emergency department. Portions of this record may have been created with voice recognition software Level of Care: Express Care Visit Vital Signs Vital signs: Vital Signs Temperature 36.5 C 10/17/24 17:39 Pulse Rate 83 10/17/24 17:39 Respiratory Rate 16 10/17/24 17:39 Blood Pressure 169/74 H 10/17/24 17:39 Pulse Oximetry 100 10/17/24 17:39 Oxygen Delivery Room Air 10/17/24 17:39 Temperature 36.5 C 10/17/24 17:39 Pulse Rate 83 10/17/24 17:39 Respiratory Rate 16 10/17/24 17:39 Blood Pressure 169/74 H 10/17/24 17:39 Pulse Oximetry 100 10/17/24 17:39 Oxygen Delivery Room Air 10/17/24 17:39 Reviewed MDM - Skin/Abscess/Foreign Bdy MDM Narrative Medical decision making narrative: Pt well hydrated appearing, in no respiratory distress, hemodynamically stable. Recommend supportive care. The patient is stable at time of discharge the clinical impression was discussed and the patient was given the opportunity to ask questions, which were addressed as completely as possible given the information available at present. Anticipatory guidance and return to care precautions were discussed and the importance of primary care follow-up was stressed and encouraged. The patient voiced understanding of the plan, indications to return, and the need for follow-up. Exam findings show no acute concerns or changes Patient is appropriate for outpatient treatment and follow-up. Differential Diagnosis Differential diagnosis: Likely other (Foreign body in arm) Medical Records Attestation: I reviewed the patient's medical records. Imaging Data Radiologist's impression: XR humerus LT Ordering provider: Cynthia Bansal APRN History: . possible foreign body, needle from dexcom gluclose monitor . Comparison: None. FINDINGS: BONES: No acute fracture or dislocation. JOINT SPACES: Osteoarthritic changes of the acromioclavicular joint SOFT TISSUES: Normal. No radiopaque foreign bodies. IMPRESSION: No acute osseous abnormality left humerus. No definite radiopaque foreign bodies seen. Discharge Plan Discharge Clinical Impression: Foreign body in skin Patient Disposition: Home, Self-Care Condition: Stable Instructions: Soft Tissue Foreign Body (ED) Additional Instructions: Follow-up with PCP tomorrow to schedule ultrasound for verification and further evaluation. Foreign body felt but not seen on x-ray If you have any worsening of symptoms or any other urgent concerns please go to the ER. Please take medications as prescribed and continue taking your home medications as usual. Please read and follow information included in discharge instructions. Your blood pressure was elevated above 120/80 today at Urgent Care. This puts you above the threshold for follow up visit with a primary care provider. High blood pressure does not usually cause any symptoms, however it may lead to kidney failure, stroke, heart disease just to name a few if untreated . Many people are anxious when seeing a provider or nurse. As a result, you are not diagnosed with hypertension at this time unless your blood pressure is persistently high at two office visits at least one week apart. Some things that can help lower blood pressure are lifestyle modifications, such as light exercise, decreased salt in diet, and weight loss. It is important to follow up with a PCP about this within 1 week. Patient Language: Japanese Prescriptions: No Action Linzess 145 mcg capsule 145 mcg PO QAM Qty: 30 11RF atorvastatin 80 mg tablet 80 mg PO HS Qty: 90 3RF Gvoke HypoPen 2-Pack 1 mg/0.2 mL auto-injector 1 mg subcut ONCE Qty: 0.4 0RF Rx Instructions: as a single dose; may repeat once after 15 minutes if no response aspirin 81 mg tablet,chewable 81 mg PO DAILY gabapentin 300 mg capsule 300 mg PO TID Qty: 90 4RF hydralazine 25 mg tablet 25 mg PO TID Qty: 90 2RF tizanidine 2 mg tablet 2 mg PO TID PRN (Reason: muscle spasticity) Qty: 60 0RF pantoprazole 40 mg tablet,delayed release (DR/EC) 40 mg PO DAILY Qty: 90 2RF (DME) Omnipod 5 G6 Intro Kit (Gen 5) Cartridge See Rx Instructions .Route Qty: 1 0RF Rx Instructions: intro kit insulin lispro [Humalog U-100 Insulin] 100 unit/mL solution 150 unit continuous subcutaneous infusion DAILY Qty: 140 1RF Tradjenta 5 mg tablet See Rx Instructions .ROUTE .COMPLEX Qty: 90 0RF Dose Instruction: TAKE 1 TABLET BY MOUTH IN THE MORNING Rx Instructions: TAKE 1 TABLET BY MOUTH IN THE MORNING amlodipine 5 mg tablet See Rx Instructions .ROUTE .COMPLEX Qty: 90 0RF Dose Instruction: Take 1 tablet by mouth once daily Rx Instructions: Take 1 tablet by mouth once daily (DME) insulin pump cart,automated,BT Cartridge See Rx Instructions .Route Qty: 45 3RF Rx Instructions: change every 2-3 days furosemide 20 mg tablet 20 mg PO QAM Qty: 30 0RF (DME) FreeStyle Ashley 3 Sensor Device See Rx Instructions .ROUTE .COMPLEX Qty: 4 0RF Dose Instruction: USE DIRECTED FOR CONTINUOUS GLUCOSE MONITORING Rx Instructions: USE DIRECTED FOR CONTINUOUS GLUCOSE MONITORING Follow-up/Referrals: UNKNOWN,DOCTOR [Primary Care Provider] - Time of Disposition: 18:59
== END 2024-10-17 19:04 | disposition home or self-care (01) ==
PROVIDERS: Emergency Provider Nurse Practitioner Family
DX: S40.852A Superficial foreign body of left upper arm, initial encounter (principal); X58.XXXA Exposure to other specified factors, initial encounter; I34.1 Nonrheumatic mitral (valve) prolapse; E11.22 Type 2 diabetes mellitus with diabetic chronic kidney disease; I12.9 Hypertensive chronic kidney disease with stage 1 through stage 4 chronic kidney disease, or unspecified chronic kidney disease; N18.9 Chronic kidney disease, unspecified; I25.2 Old myocardial infarction; E78.2 Mixed hyperlipidemia; Z79.82 Long term (current) use of aspirin
CPT/HCPCS: 73060; 99213; G0463

== ENCOUNTER 2024-11-03 16:42 | Emergency (ER) | payer MEDICARE, OTHER, SELFPAY ==
--- NOTE | ~2024-11-03 | XR_ITS ---
EXAMINATION: XR chest 1V portable Exam Date/Time: 11/03/2024 17:19 [facility] HISTORY: cough Comparison: 03/27/2023. RESULT: Lines, tubes, and devices: None. Lungs and pleura: Diffuse groundglass opacity with indistinct vascular margins. Patchy subsegmental airspace disease. Cardiomediastinal silhouette: Stable. Other: No acute osseous or upper abdominal finding. IMPRESSION: Pulmonary opacities likely representing mild interstitial edema versus infection, with bibasilar atel ectasis/consolidation. Reviewed, dictated and finalized at location [facility] IMPRESSION: Pulmonary opacities likely representing mild interstitial edema versus infectio n, with bibasilar atelectasis/consolidation.
[2024-11-03 16:44] VITALS: BP 182/69; PULSE 100; RESP 18; TEMP 36.6; O2SAT 99
[2024-11-03 17:04] VITALS: RESP 18; O2SAT 98
[2024-11-03 17:06] VITALS: BP 201/79; PULSE 89; RESP 19; O2SAT 98
--- NOTE | 2024-11-03 17:10 | ED_ITS ---
HPI - General Adult General Chief complaint: Unspecified Stated complaint: feels like she's choking on water, cough,back pain Time Seen by Provider: 11/03/24 16:57 History of Present Illness HPI narrative: 64-year-old female with a history of insulin-dependent diabetes, hypertension, hyperlipidemia presents to the emergency department for URI symptoms for 4 days. Patient is reporting a productive cough, nasal congestion, tinnitus and a sore throat. Triage note states patient was reporting felt like her throat was closing up and cannot swallow water. When asked the patient to elaborate on this she states her throat is painful and hurts to swallow. No lip or tongue swelling. Denies chest pain, abdominal pain, dysuria or hematuria. States she has been taking NyQuil and Mucinex with little improvement. States her is sick with similar symptoms. Related Data Home Medications ?Medication ?Instructions ?Recorded ?Confirmed ?Last Taken ?Type aspirin 81 mg chewable tablet 81 mg PO DAILY 03/27/23 10/23/24 Unknown History Allergies Allergy/AdvReac Type Severity Reaction Status Date / Time ciprofloxacin (From Cipro) Allergy Severe tongue Verified 10/23/24 09:02 swelling losartan Allergy Intermediate Abdominal Verified 10/23/24 09:02 Pain MYCHAL Inhibitors AdvReac Intermediate angioedema Verified 10/23/24 09:02 Review of Systems 2 Review of Systems: All systems reviewed & are unremarkable except as noted in HPI and below PMFSH Past Medical History Medical History Adenomatous colon polyp Helicobacter positive gastritis HTN (hypertension), benign vaginal deliveries Acute appendicitis Mitral valve prolapse Heart disease Mixed hyperlipidemia Ganglion cyst of volar aspect of right wrist Heart attack Vitamin B2 deficiency Benign reactive hypertension Hyperlipidemia associated with type 2 diabetes mellitus Type 2 diabetes mellitus with diabetic chronic kidney disease Surgical History Surgical History Hx of cholecystectomy H/O breast augmentation History of bilateral tubal ligation S/P shoulder surgery S/P abdominoplasty Family History Family History Father Hypertension Family history of elevated blood lipids Family history of diabetes mellitus in first degree relative High cholesterol Mother Family history of malignant neoplasm of uterus, Onset Age: 49 Patient's mother is Sibling Gunshot wound Other Diabetes mellitus Family history of heart disease in male family member before age 55 Family history of malignant neoplasm Social History Social History Social History: Lives at home with her . She denies tobacco use. Rarely drinks alcohol. No drug use. No history of drug use. No history of heavy alcohol use. Was in the [employer] in [employer] but did not complete this. 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 She nominates her to be the individual would make medical decisions for her if she is unable. Smoking status: Never smoker Second hand tobacco smoke exposure: No Alcohol intake: never Alcohol use details: occasionally Substance use: never Substance use type: does not use Do You Feel Safe in your Home?: Yes Lack of Transportation: No Lack of Food: Never True Current Housing: I Have Housing Concerned About Future Housing: No Difficulty Paying Gas/Electric Bills: No Difficulty Paying for Meds: YES Currently Unemployed: YES Education: Bachelor's Degree Difficulty w/ Childcare or Family Care: No Living arrangements: with family Occupation/Education: retired Gender identity (if verbalized by the patient): Female Sexual Orientation (if Verbalized by the Patient): Straight or Heterosexual Spiritual care concerns: No Exam 2 Narrative: GENERAL: Well-appearing, well-nourished, and in no acute distress. HEAD: Normocephalic, atraumatic. EYES: PERRLA and EOMI. Bilateral TMs are mchugh nonbulging with normal canals. Posterior pharynx without erythema or edema, no tonsillar hypertrophy, uvular hydrops, uvular deviation. Patient tolerating secretions, no trismus ENT: Nares clear, no rhinorrhea or epistaxis. Mucous membranes moist. NECK: Supple. CHEST: Clear to auscultation. No respiratory distress. HEART: Regular rate and rhythm. No murmur heard. Normal peripheral pulses. ABDOMEN: Soft, nontender, nondistended, normal active bowel sounds. Insulin pump in the left lower quadrant EXTREMITIES: Normal range of motion. No edema. Dexcom on the left humerus SKIN: Warm, dry, no rash. NEURO: No focal deficits. Alert and oriented x3 Course Vital Signs Vital signs: Vital Signs Temperature 97.8 F 11/03/24 16:44 Pulse Rate 100 11/03/24 16:44 Respiratory Rate 18 11/03/24 16:44 Blood Pressure 182/69 H 11/03/24 16:44 Pulse Oximetry 99 11/03/24 16:44 Oxygen Delivery Room Air 11/03/24 16:44 Temperature 97.8 F 11/03/24 16:44 Pulse Rate 89 11/03/24 17:06 Respiratory Rate 19 11/03/24 17:06 Blood Pressure 201/79 H 11/03/24 17:06 Pulse Oximetry 98 11/03/24 17:06 Oxygen Delivery Room Air 11/03/24 16:44 Medical Decision Making MDM Narrative Medical decision making narrative: 64-year-old female presents to the emergency department for URI sx for 4 days. Reporting productive cough, nasal congestion, sore throat, tinnitus. Triage vitals with elevated blood pressure. Patient is afebrile and nontoxic appearing. Exam is significant for the above. CBC shows no leukocytosis or anemia. Chemistries with a glucose of 290, normal bicarb and anion gap. UA with glucosuria, no UTI. Viral swabs positive for RSV. Chest x-ray shows pulmonary opacities likely representing mild interstitial edema versus infection with bibasilar atelectasis/consolidation. BNP is within normal limits, patient does not appear to be fluid overloaded. Procalcitonin is normal at 0.1. Patient updated on workup. Symptoms consistent with RSV infection. Given chest x-ray findings, patient's age and risk factors will cover for pneumonia. Curb 65 is 1, patient is low risk. Blood pressure has improved. O2 sats remained stable. Feel she is safe to be discharged home. Patient started on Augmentin and azithromycin advised to follow-up closely with her PCP. Discussed supportive care and return precautions. She is agreeable with the plan verbalized understanding. Discharged in stable condition. Vital Signs Vital Signs: Vital Signs Temperature 97.8 F 11/03/24 16:44 Pulse Rate 100 11/03/24 16:44 Respiratory Rate 18 11/03/24 16:44 Blood Pressure 182/69 H 11/03/24 16:44 Pulse Oximetry 99 11/03/24 16:44 Oxygen Delivery Room Air 11/03/24 16:44 Temperature 97.8 F 11/03/24 16:44 Pulse Rate 89 11/03/24 17:06 Respiratory Rate 19 11/03/24 17:06 Blood Pressure 201/79 H 11/03/24 17:06 Pulse Oximetry 98 11/03/24 17:06 Oxygen Delivery Room Air 11/03/24 16:44 Lab Data 11/03/24 17:31 11/03/24 17:31 Labs: Lab Results 11/03/24 11/03/24 Range/Units 17:30 17:31 WBC 7.2 (4.5-10.0) K/mm3 RBC 4.44 (4.2-5.4) M/mm3 Hgb 12.8 (12.0-15.0) g/dL Hct 39.6 (37.0-47.0) % MCV 89.2 (80-100) fl MCH 28.8 (26-34) pg MCHC 32.3 (32-36) g/dl RDW 13.0 (11.5-14.5) % Plt Count 217 (150-375) k/mm3 MPV 11.3 H (7.4-10.4) fl Immature Gran % (Auto) 0.3 (0-0.5) % Neut % (Auto) 44.7 L (45.5-73.1) % Lymph % (Auto) 44.0 (18.3-44.2) % [place] % (Auto) 8.0 (2.6-8.5) % Eos % (Auto) 2.6 (0-4.4) % Baso % (Auto) 0.4 (0.2-1.2) % Lymph # (Auto) 3.17 (0.9-3.2) K/mm3 [place] # (Auto) 0.6 (0.1-0.6) K/mm3 Eos # (Auto) 0.2 (0-0.3) K/mm3 Baso # (Auto) 0.0 (0.0-0.1) K/mm3 Abs Immat Gran (auto) 0.02 (0.00-0.031) K/mm3 Absolute Neuts (auto) 3.2 (1.3-6.7) K/mm3 Absolute Nucleated RBC 0.000 (0.0-0.012) K/mm3 Nucleated RBC % 0.0 (0.0-0.2) % Sodium 140 (137-145) mmol/L Potassium 3.7 (3.4-5.0) mmol/L Chloride 109 H (98-107) mmol/L Carbon Dioxide 22 (22-30) mmol/L Anion Gap 9 (4-12) mmol/L BUN 10 (7-17) mg/dL Creatinine 0.84 (0.7-1.0) mg/dL Estim Creat Clear Calc Not Reportable Estimated GFR > 60 (59 - ) Glucose 290 H (65-110) mg/dL Calcium 9.2 (8.4-10.2) mg/dL Total Bilirubin 0.8 (0.2-1.3) mg/dL AST 33 (14-36) U/L ALT 31 (6-35) U/L Alkaline Phosphatase 93 (38-126) U/L NT-Pro-B Natriuret Pep 33 (19.9-100) pg/mL Total Protein 8.0 (6.3-8.2) g/dL Albumin 4.2 (3.5-5.1) g/dL Procalcitonin 0.1 ng/mL Urine Color Yellow (Yellow) Urine Appearance Clear (Clear) Urine pH 6.5 (5.0-9.0) Ur Specific [place] 1.017 (1.001-1.035) Urine Protein Negative (Negative) mg/dL Urine Glucose (UA) 3+ H (Negative) mg/dL Urine Ketones Negative (Negative) mg/dL Ur Blood (Man) Negative (Negative) Urine Nitrate Negative (Negative) Urine Bilirubin Negative (Negative) Urine Urobilinogen 0.2 (<2.0) mg/dL Leukocyte Esterase Rfl Negative (Negative) CHANG/UL Influenza A (RT-PCR) Negative (Negative) Influenza B (RT-PCR) Negative (Negative) RSV (RT-PCR) Positive A (Negative) SARS-CoV-2 RNA (RT-PCR) Negative (Negative) Group A Strep (PCR) Not detected (Negative) Discharge Plan Discharge Clinical Impression: Respiratory syncytial virus (RSV) Qualifiers: RSV infection type: acute bronchitis Qualified Code(s): J20.5 - Acute bronchitis due to respiratory syncytial virus Pneumonia Qualifiers: Pneumonia type: due to unspecified organism Laterality: unspecified laterality Lung location: lower lobe of lung Qualified Code(s): J18.9 - Pneumonia, unspecified organism Patient Disposition: Home, Self-Care Condition: Stable Instructions: Antibiotic Form, Pneumonia (ED), RSV (Respiratory Syncytial Virus) Infection (ED) Additional Instructions: You were evaluated in the emergency department for sore throat, congestion, cough. You tested positive for RSV which is a respiratory virus as discussed. Your x-ray shows findings that may be early pneumonia. I started you on antibiotics, take them as directed. Take Tylenol [id number] as directed on the bottle as needed for body aches. Follow-up with your primary care provider. Return to the emergency department if you develop a fever 100.4 or greater, your unable to keep down food or fluids, he develops shortness of breath, weakness or other concerning symptoms. Patient Language: Serbian Prescriptions: New amoxicillin-pot clavulanate 875-125 mg tablet 1 tablet PO Q12H Qty: 14 0RF azithromycin 250 mg tablet 250 mg PO DAILY 4 Days Qty: 4 0RF Rx Instructions: start on day 2 of therapy No Action Linzess 145 mcg capsule 145 mcg PO QAM Qty: 30 11RF atorvastatin 80 mg tablet 80 mg PO HS Qty: 90 3RF Gvoke HypoPen 2-Pack 1 mg/0.2 mL auto-injector 1 mg subcut ONCE Qty: 0.4 0RF Rx Instructions: as a single dose; may repeat once after 15 minutes if no response aspirin 81 mg tablet,chewable 81 mg PO DAILY gabapentin 300 mg capsule 300 mg PO TID Qty: 90 4RF hydralazine 25 mg tablet 25 mg PO TID Qty: 90 2RF tizanidine 2 mg tablet 2 mg PO TID PRN (Reason: muscle spasticity) Qty: 60 0RF pantoprazole 40 mg tablet,delayed release (DR/EC) 40 mg PO DAILY Qty: 90 2RF (DME) Omnipod 5 G6 Intro Kit (Gen 5) Cartridge See Rx Instructions .Route Qty: 1 0RF Rx Instructions: intro kit insulin lispro [Humalog U-100 Insulin] 100 unit/mL solution 150 unit continuous subcutaneous infusion DAILY Qty: 140 1RF Tradjenta 5 mg tablet See Rx Instructions .ROUTE .COMPLEX Qty: 90 0RF Dose Instruction: TAKE 1 TABLET BY MOUTH IN THE MORNING Rx Instructions: TAKE 1 TABLET BY MOUTH IN THE MORNING amlodipine 5 mg tablet See Rx Instructions .ROUTE .COMPLEX Qty: 90 0RF Dose Instruction: Take 1 tablet by mouth once daily Rx Instructions: Take 1 tablet by mouth once daily (DME) insulin pump cart,automated,BT Cartridge See Rx Instructions .Route Qty: 45 3RF Rx Instructions: change every 2-3 days furosemide 20 mg tablet 20 mg PO QAM Qty: 30 0RF (DME) FreeStyle Ashley 3 Sensor Device See Rx Instructions .ROUTE .COMPLEX Qty: 4 0RF Dose Instruction: USE DIRECTED FOR CONTINUOUS GLUCOSE MONITORING Rx Instructions: USE DIRECTED FOR CONTINUOUS GLUCOSE MONITORING Follow-up/Referrals: Jonathan Wayne MD [Primary Care Provider] -
[2024-11-03 17:42] LABS: Basophils Percent Auto 0.4 % (0.2-1.2); Eosinophils Absolute Auto 0.2 K/mm3 (0-0.3); Eosinophils Percent Auto 2.6 % (0-4.4); Hematocrit 39.6 % (37.0-47.0); Hemoglobin 12.8 g/dL (12.0-15.0); Immature Granulocyte Absolute 0.02 K/mm3 (0.00-0.031); Immature Granulocyte Percent A 0.3 % (0-0.5); Lymphocytes Absolute Auto 3.17 K/mm3 (0.9-3.2); Mean Corpuscular HGB Conc 32.3 g/dl (32-36); Mean Corpuscular Hemoglobin 28.8 pg (26-34); Mean Corpuscular Volume 89.2 fl (80-100); Mean Platelet Volume 11.3 fl (7.4-10.4); Monocytes Absolute Auto 0.6 K/mm3 (0.1-0.6); Neutrophils Absolute Auto 3.2 K/mm3 (1.3-6.7); Neutrophils Percent Auto 44.7 % (45.5-73.1); Platelet Count Result 217 k/mm3 (150-375); Red Blood Count 4.44 M/mm3 (4.2-5.4); White Blood Count 7.2 K/mm3 (4.5-10.0)
[2024-11-03 17:43] LABS: Add Urine Microscopic? NO; Appearance Urine Clear (Clear); Bilirubin Urine Negative (Negative); Blood Urine Negative (Negative); Color Urine Yellow (Yellow); Glucose Urine UA 3+ mg/dL (Negative); Ketones Urine Negative (Negative); Leukocyte Esterase Ur Negative LEU/UL (Negative); Nitrate Urine Negative (Negative); Protein Urine Negative (Negative); Specific Grav Ur 1.017 (1.001-1.035); Urobilinogen Urine 0.2 mg/dL (<2.0); pH Urine 6.5 (5.0-9.0)
[2024-11-03] MEDS: ACETAMINOPHEN 500 MG TABLET 1000 MG PO (17:54)
[2024-11-03 18:07] LABS: Alanine Aminotransferase 31 U/L (6-35); Albumin Level 4.2 g/dL (3.5-5.1); Alkaline Phosphatase 93 U/L (38-126); Anion Gap 9 mmol/L (4-12); Aspartate Amino Transferase 33 U/L (14-36); Bilirubin,Total 0.8 mg/dL (0.2-1.3); Blood Urea Nitrogen 10 mg/dL (7-17); Calcium 9.2 mg/dL (8.4-10.2); Carbon Dioxide 22 mmol/L (22-30); Chloride 109 mmol/L (98-107); Estimated Glomerular Filt Rate > 60; Glucose 290 mg/dL (65-110); Potassium 3.7 mmol/L (3.4-5.0); Sodium 140 mmol/L (137-145)
[2024-11-03 18:08] LABS: Strep Group A RT-PCR NOT DETECTED (Negative)
[2024-11-03 18:19] LABS: Influenza A QL RT-PCR Negative (Negative); Influenza B QL RT-PCR Negative (Negative); RSV RNA, RT-PCR Positive (Negative); SARS-CoV-2 RNA PCR Negative (Negative)
[2024-11-03 18:25] LABS: NT Pro B Type Natriuretic Pept 33 pg/mL (19.9-100)
[2024-11-03 18:33] LABS: Procalcitonin 0.1 ng/mL
[2024-11-03] MEDS: AZITHROMYCIN 250 MG TABLET 500 MG PO (18:53)
[2024-11-03] MEDS: AMOXICILLIN/CLAVULANATE K 875-125 MG TAB 1 TABLET PO (18:53)
[2024-11-03 18:56] VITALS: BP 152/63; PULSE 73; RESP 18; O2SAT 96
[2024-11-03 19:31] LABS: Glucose Point of Care 305 mg/dl (65-105)
== END 2024-11-03 19:14 | disposition home or self-care (01) ==
PROVIDERS: Emergency Provider Physician Assistant; PCP Family Medicine
DX: J20.5 Acute bronchitis due to respiratory syncytial virus (principal); J18.9 Pneumonia, unspecified organism; Z20.822 Contact with and (suspected) exposure to COVID-19; I34.1 Nonrheumatic mitral (valve) prolapse; I25.2 Old myocardial infarction; E11.69 Type 2 diabetes mellitus with other specified complication; E78.2 Mixed hyperlipidemia; E11.22 Type 2 diabetes mellitus with diabetic chronic kidney disease; I12.9 Hypertensive chronic kidney disease with stage 1 through stage 4 chronic kidney disease, or unspecified chronic kidney disease; N18.9 Chronic kidney disease, unspecified; Z86.0101 Personal history of adenomatous and serrated colon polyps; Z90.49 Acquired absence of other specified parts of digestive tract; Z79.82 Long term (current) use of aspirin; Z79.4 Long term (current) use of insulin; Z79.84 Long term (current) use of oral hypoglycemic drugs; Z79.899 Other long term (current) drug therapy
CPT/HCPCS: 36415; 71045; 80053; 81003; 82948; 83880; 84145; 85025; 87637; 87651; 99283; A9270

== ENCOUNTER 2025-01-01 14:30 | Outpatient (RCR) | payer MEDICARE, OTHER, SELFPAY | END 2025-01-01 23:59 | disposition home or self-care (01) | LOC: ANHDMC 14:30 | PROVIDERS: PCP Internal Medicine; Visit Provider Internal Medicine | DX: E11.22 Type 2 diabetes mellitus with diabetic chronic kidney disease (principal); E11.65 Type 2 diabetes mellitus with hyperglycemia; E11.43 Type 2 diabetes mellitus with diabetic autonomic (poly)neuropathy; K31.84 Gastroparesis; Z71.89 Other specified counseling | CPT/HCPCS: G0108; G0109 ==

== ENCOUNTER 2025-02-05 14:35 | Outpatient (RCR) | payer OTHER, MEDICARE, SELFPAY | END 2025-05-05 11:01 | disposition home or self-care (01) | LOC: ANHDMC 14:35 | PROVIDERS: PCP Internal Medicine; Visit Provider Internal Medicine | DX: E11.22 Type 2 diabetes mellitus with diabetic chronic kidney disease (principal); E11.65 Type 2 diabetes mellitus with hyperglycemia; K31.84 Gastroparesis; Z71.3 Dietary counseling and surveillance | CPT/HCPCS: G0109 ==

== ENCOUNTER 2025-08-01 10:03 | Emergency (ER) | payer OTHER, MEDICARE, SELFPAY ==
--- NOTE | 2025-08-01 10:08 | ED_ITS ---
HPI - General Adult General Chief complaint: Upper Respiratory Infection Stated complaint: Bodyaches/Tightness In Chest/Vomiting Time Seen by Provider: 08/01/25 10:16 Source: patient, RN notes reviewed and old records reviewed Mode of arrival: ambulatory Limitations: no limitations History of Present Illness HPI narrative: 64-year-old female presents to the [facility] with complaints of chest tightness, abdominal cramping, 7 episodes of diarrhea, several episodes of vomiting since 10:00 p.m. last night. Patient also states that her blood sugars have been higher than her normal, currently on her continuous glucose monitor to 97. States that she has taken ibuprofen and tried with to taking Tums which does not help. Has been belching and it ?tastes like rotten a eggs. ? Treatments prior to arrival: NSAID and other (Tums) Related Data Home Medications ?Medication ?Instructions ?Recorded ?Confirmed ?Last Taken ?Type aspirin 81 mg chewable tablet 81 mg PO DAILY 03/27/23 05/05/25 Unknown History insulin lispro 100 unit/mL 1 sliding scale dose contin uous 02/19/25 05/05/25 Unknown History subcutaneous solution (Humalog subcutaneous infusion U SEASDIRECTD U-100 Insulin) Allergies Allergy/AdvReac Type Severity Reaction Status Date / Time ciprofloxacin (From Cipro) Allergy Severe tongue Verified 08/01/25 10:27 swelling losartan Allergy Intermediate Abdominal Verified 08/01/25 10:27 Pain MYCHAL Inhibitors AdvReac Intermediate angioedema Verified 08/01/25 10:27 Review of Systems Review of Systems: All systems reviewed & are unremarkable except as noted in HPI and below Constitutional: Constitutional: Reports as per HPI and Reports body ache(s) ENT: Reports system reviewed and no additional complaints, except as documented Cardiovascular: Cardiovascular: Reports as per HPI, Reports chest pain, Denies edema and Denies dyspnea Respiratory: Respiratory: Reports no additional respiratory complaints, Denies chest congestion, Denies cough and Denies dyspnea Gastrointestinal: Gastrointestinal: Reports as per HPI, Reports belching, Reports bloating, Reports diarrhea, Reports nausea and Reports vomiting Musculoskeletal: Musculoskeletal: Reports no additional musculoskeletal complaints Integumentary/Breasts: Skin/Breast: Reports system reviewed and no additional complaints, except as docu Endocrine: Endocrine: Reports as per HPI and Reports other (increase Blood sugar) [facility] Past Medical History Medical History Adenomatous colon polyp Helicobacter positive gastritis HTN (hypertension), benign vaginal deliveries Acute appendicitis Mitral valve prolapse Heart disease Mixed hyperlipidemia Ganglion cyst of volar aspect of right wrist Heart attack Vitamin B2 deficiency Benign reactive hypertension Hyperlipidemia associated with type 2 diabetes mellitus Type 2 diabetes mellitus with diabetic chronic kidney disease Surgical History Surgical History Hx of cholecystectomy H/O breast augmentation History of bilateral tubal ligation S/P shoulder surgery S/P abdominoplasty Family History Family History Father Hypertension Family history of elevated blood lipids Family history of diabetes mellitus in first degree relative High cholesterol Mother Family history of malignant neoplasm of uterus, Onset Age: 49 Patient's mother is Sibling Gunshot wound Other Diabetes mellitus Family history of heart disease in male family member before age 55 Family history of malignant neoplasm Social History Social History Social History: Lives at home with her . She denies tobacco use. Rarely drinks alcohol. No drug use. No history of drug use. No history of heavy alcohol use. 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 She nominates her to be the individual would make medical decisions for her if she is unable. Smoking status: Never smoker Second hand tobacco smoke exposure: No Alcohol intake: never Alcohol use details: occasionally Substance use: never Substance use type: does not use Do You Feel Safe in your Home?: Yes Lack of Transportation: No Lack of Food: Never True Current Housing: I Have Housing Concerned About Future Housing: No Difficulty Paying Gas/Electric Bills: No Difficulty Paying for Meds: YES Currently Unemployed: YES Education: Bachelor's Degree Difficulty w/ Childcare or Family Care: No Living arrangements: with family Occupation/Education: retired Gender identity (if verbalized by the patient): Female Sexual Orientation (if Verbalized by the Patient): Straight or Heterosexual Spiritual care concerns: No Comments At the time of my signature, I reviewed and agree with the nursing past medical, surgical, social, and family history. There is no relevant family history pertinent to the patient complaint. Exam Const: General: cooperative, no acute distress, well developed, alert, uncomfortable and well nourished Nutritional Appearance: well nourished and obese Orientation/consciousness: patient oriented x3 Limitations: no limitations HENMT: Head: normal to inspection Ears: hearing grossly normal bilaterally Mouth: Yes Normal oral and palatal mucosa present, Yes lip normal, Yes tongue normal and Yes moist mucous membranes Eyes: General: appearance normal, both eyes and all related structures Alignment and Position: alignment normal Neck: Neck: normal visual inspection, full ROM, no lymphadenopathy and no meningeal signs Chest: Chest palpation & inspection: normal inspection of the chest Resp: Effort & Inspection: normal respiratory effort and able to speak in complete sentences Auscultation: clear to auscultation bilaterally, no crackles, no rales, no rhonchi and no wheezes Cardio: Rate: regular rate GI: GI Palp: No abdominal tenderness Auscultation: normal bowel sounds Skin: General skin exam: normal color and no rashes or lesions noted Neuro: General: patient oriented x3, gait normal, moves all extremities and no meningeal signs Cognition (Neuro): normal cognition Speech: normal speech Gait exam (Neuro): Normal gait present Extrem: General: normal to inspection, full ROM, capillary refill normal and normal gait Psych: Appearance: grossly normal and well kempt Mental Status: mental status grossly normal Speech and movement: Normal speech and movement present and Clear speech present Affect: normal affect Attitude: cooperative Course Course Level of Care: Express Care Visit Vital Signs Vital signs: Vital Signs Temperature 97.4 F L 08/01/25 10:17 Pulse Rate 88 08/01/25 10:17 Respiratory Rate 16 08/01/25 10:17 Blood Pressure 140/65 08/01/25 10:17 Pulse Oximetry 98 08/01/25 10:17 Oxygen Delivery Room Air 08/01/25 10:17 Temperature 97.4 F L 08/01/25 10:17 Pulse Rate 88 08/01/25 10:17 Respiratory Rate 16 08/01/25 10:17 Blood Pressure 140/65 08/01/25 10:17 Pulse Oximetry 98 08/01/25 10:17 Oxygen Delivery Room Air 08/01/25 10:17 Reviewed Transfer Transfered to: [facility] Transportation: Other (POV states will drive her. Declined EMS) Transfer rationale: Patient with symptoms since and PN of chest tightness, belching, abdominal cramping, and diarrhea, vomiting, elevated blood sugar sending for higher level care Accepting physician: Spoke with Breana FARMER, Dr. Kaufman Medical Decision Making MDM Narrative Medical decision making narrative: Patient sitting in exam room. Patient is nontoxic, vitals are stable. Patient presents with chest tightness, abdominal cramping, nausea, vomiting, belching and diarrhea as well as elevated blood sugar sending for higher level of care. Patient is flu, COVID were negative EKG with no acute findings Transfer instructions reviewed with patient, go directly to the ER. EMS offered, patient declined All questions have been answered, and the patient deny any further questions with discharge and discharge plan. Some parts of this dictation were generated by voice recognition software and may contain typographical and/or grammatical inaccuracies. Differential Diagnosis Differential Diagnosis: Non STEMI, STEMI, electrolyte imbalance, acute abdomen, cholecystitis, gastroenteritis, DKA Medical Records Medical records reviewed: Yes I reviewed the external patient's medical records. Vital Signs Vital Signs: Vital Signs Temperature 97.4 F L 08/01/25 10:17 Pulse Rate 88 08/01/25 10:17 Respiratory Rate 16 08/01/25 10:17 Blood Pressure 140/65 08/01/25 10:17 Pulse Oximetry 98 08/01/25 10:17 Oxygen Delivery Room Air 08/01/25 10:17 Temperature 97.4 F L 08/01/25 10:17 Pulse Rate 88 08/01/25 10:17 Respiratory Rate 16 08/01/25 10:17 Blood Pressure 140/65 08/01/25 10:17 Pulse Oximetry 98 08/01/25 10:17 Oxygen Delivery Room Air 08/01/25 10:17 Reviewed Lab Data Lab results reviewed: Yes I reviewed the patient's lab results. Labs: Lab Results 08/01/25 Range/Units 10:31 POC Influenza A Ag Negative (Negative) POC Influenza B Ag Negative (Negative) POC SARS CoV-2 Ag Negative (Negative) Reviewed ECG Data EKG #1: Attestation: I personally reviewed and interpreted this ECG as follows: ECG completion date: 08/01/25 ECG completion time: 10:28 Interpretation: Sinus rhythm with occasional ectopic premature complexes. Supraventricular hypertrophy and ST change Abnormal EKG Ventricular rate of 85, MT interval 162. QRS duration 78 Critical Care Time Critical Care Time Critical Care Time: No Discharge Plan Discharge Clinical Impression: Chest tightness, Elevated blood sugar Patient Disposition: Acute Care Hospital Condition: Stable Patient Language: Khmer Prescriptions: No Action nitroglycerin 0.4 mg tablet, sublingual 0.4 mg sublingual Q5M PRN (Reason: chest pain) Qty: 10 0RF Rx Instructions: do not exceed 3 doses per episode (DME) Omnipod 5 G6-G7 Pods (Gen 5) Cartridge See Rx Instructions .Route Qty: 90 3RF Rx Instructions: change every day please send dexcom G7 compatible pods only insulin lispro [Humalog U-100 Insulin] 100 unit/mL solution 1 sliding scale dose continuous subcutaneous infusion USEASDIRECTD aspirin 81 mg tablet,chewable 81 mg PO DAILY gabapentin 300 mg capsule 300 mg PO TID Qty: 90 4RF Patient Comments: PT TAKES PRN cyclobenzaprine 5 mg tablet 5 mg PO TID PRN (Reason: muscle spasm) Qty: 60 0RF Mounjaro 2.5 mg/0.5 mL pen injector 2.5 mg subcut WEEKLY Qty: 2 0RF Rx Instructions: for 4 weeks triamcinolone acetonide 0.1 % cream 1 applic topical TID PRN (Reason: rash) Qty: 15 0RF (DME) Omnipod 5 G6 Intro Kit (Gen 5) Cartridge See Rx Instructions .Route Qty: 1 0RF Rx Instructions: intro kit (DME) insulin pump cart,automated,BT Cartridge See Rx Instructions .Route Qty: 45 3RF Rx Instructions: change every 2-3 days linaclotide 145 mcg capsule 145 mcg capsule 0RF furosemide 20 mg tablet See Rx Instructions .ROUTE .COMPLEX Qty: 30 3RF Dose Instruction: TAKE 1 TABLET BY MOUTH IN THE MORNING Rx Instructions: TAKE 1 TABLET BY MOUTH IN THE MORNING (DME) Dexcom G7 Sensor Device See Rx Instructions .ROUTE .MEDSUPPLY Qty: 9 0RF Rx Instructions: change every 10 days hydralazine 25 mg tablet 25 mg PO TID Qty: 270 1RF tretinoin 0.1 % cream See Rx Instructions .ROUTE .COMPLEX Qty: 20 0RF Dose Instruction: APPLY CREAM TOPICALLY ONCE DAILY AT BEDTIME Rx Instructions: APPLY CREAM TOPICALLY ONCE DAILY AT BEDTIME rosuvastatin 10 mg tablet 10 mg PO DAILY Qty: 90 1RF amlodipine 5 mg tablet See Rx Instructions .ROUTE .COMPLEX Qty: 90 0RF Dose Instruction: Take 1 tablet by mouth once daily Rx Instructions: Take 1 tablet by mouth once daily Follow-up/Referrals: Jonathan Wayne MD [Primary Care Provider, Family Practice]
[2025-08-01 10:17] VITALS: BP 140/65; PULSE 88; RESP 16; TEMP 36.3; O2SAT 98
--- NOTE | 2025-08-01 10:26 | ECG_ITS ---
Test Date: 2025-08-01 10:28:57 Measurements Intervals [place] Rate: 85 P: 46 [place]: 162 QRS: 3 QRSD: 78 T: 59 QT: 388 QTc: 463 Interpretive Statements SINUS RHYTHM WITH OCCASIONAL ECTOPIC PREMATURE COMPLEXES LEFT VENTRICULAR HYPERTROPHY AND ST-T CHANGE CANNOT R/O SEPTAL INFARCT, AGE INDETERMINATE MINIMAL Q WAVES- HIGH LATERAL LEADS BASELINE ARTIFACT- II, III, AVR, AVL ,AVF, V4-V6 ABNORMAL ECG No previous ECG available for comparison Electronically Signed On 08-01-2025 11:12:49 CDT by Deshaun Johnson D.O.
[2025-08-01 10:33] LABS: EDCOVIDSCREEN Negative (Negative); EDINFLUASCREEN Negative (Negative); EDINFLUBSCREEN Negative (Negative)
== END 2025-08-01 10:35 | disposition short-term general hospital (02) ==
LOC: EXPCOLL 10:07
PROVIDERS: Emergency Provider Nurse Practitioner; PCP Family Medicine
DX: R07.89 Other chest pain (principal); E11.22 Type 2 diabetes mellitus with diabetic chronic kidney disease; N18.9 Chronic kidney disease, unspecified; Z79.4 Long term (current) use of insulin; Z20.822 Contact with and (suspected) exposure to COVID-19; I13.10 Hypertensive heart and chronic kidney disease without heart failure, with stage 1 through stage 4 chronic kidney disease, or unspecified chronic kidney disease; I34.1 Nonrheumatic mitral (valve) prolapse; E78.2 Mixed hyperlipidemia; I25.2 Old myocardial infarction; Z79.82 Long term (current) use of aspirin
CPT/HCPCS: 87426; 87804; 93005; 99213; G0463

== ENCOUNTER 2025-08-01 10:53 | Emergency (ER) | payer OTHER, MEDICARE, SELFPAY ==
[2025-08-01] VITALS (19 sets, daily range): BP systolic 141–148; BP diastolic 64–70; PULSE 64–87; RESP 12–21; TEMP 36.3; O2SAT 92–100
--- NOTE | ~2025-08-01 | CT_ITS ---
EXAMINATION: CT abdomen pelvis w con DATE: 08/01/2025 13:34 INDICATION: Abdominal pain TECHNIQUE: Computed tomography (CT) of the abdomen and pelvis was performed with 100 mL Omnipaque-350 intravenous contrast. Automated exposure control and iterative reconstruction technique were employed. The dose-length product was 491.51 mGy-cm. COMPARISON: 11/07/2022 FINDINGS: Linear and groundglass opacities in the bilateral lower lobes and lingula consistent with atelectasis likely related to expiratory phase of imaging. Heart size is normal. No pericardial or pleural effusion. Small sliding-type hiatal hernia. Cholecystectomy clips at the gallbladder fossa. Liver, spleen, pancreas and bilateral adrenal glands are normal. Bilateral low-attenuation renal cysts the largest on the left measuring 3.4 cm. Interval increase in size of a previously 1.9 cm, currently 2.3 cm enhancing lesion arising from the lower pole of the left kidney consistent with renal cell carcinoma. Likely prior appendectomy with suture line at the tip of a small appendiceal stump. Fluid throughout the colon consistent with nonspecific diarrhea. No abnormal bowel wall thickening or obstruction. There are few scattered clonic diverticula without adjacent inflammatory stranding to suggest diverticulitis. 2.7 cm hypoenhancing fibroid at the fundus of the anteverted uterus. Bladder and bilateral adnexa are unremarkable. No free intraperitoneal gas or fluid. No pathologically enlarged abdominal or pelvic lymphadenopathy. Small widemouthed fat-containing umbilical hernia. Postoperative changes along the anterior lower abdominal wall. Mild scattered degenerative skeletal changes. IMPRESSION: 1. Fluid throughout the colon consistent with nonspecific diarrhea. No other acute intra-abdominal/pelvic process. 2. Increasing size of a 2.3 cm enhancing mass at the lower pole of the left kidney consistent with renal cell carcinoma. 3. Small sliding-type hiatal hernia. 4. 2.7 cm uterine fibroid. 5. Small widemouthed fat-containing umbilical hernia. Reviewed, dictated and finalized at location A. IMPRESSION: 1. Fluid throughout the colon consistent with nonspecific diarrhea. No other ac neeta intra-abdominal/pelvic process. 2. Increasing size of a 2.3 cm enhancing mass at the lower pole of the left kid candido consistent with renal cell carcinoma. 3. Small sliding-type hiatal hernia. 4. 2.7 cm uterine fibroid. 5. Small widemouthed fat-containing umbilical hernia.
--- NOTE | ~2025-08-01 | XR_ITS ---
EXAMINATION: XR chest 2V DATE: 08/01/2025 13:24 INDICATION: Cough TECHNIQUE: frontal and lateral views of the chest were obtained. COMPARISON: Chest radiograph dated 11/03/2024 FINDINGS: There are some infrahilar bronchial wall thickening evident on the lateral projection. No focal airspace opacities, pleural effusion or pneumothorax. The cardiomediastinal silhouette is normal. Cholecystectomy clips in right upper quadrant. IMPRESSION: 1. Mild perihilar bronchial wall thickening without focal airspace opacities which could be seen with bronchitis, reactive air disease/asthma or minimal pulmonary edema. Reviewed, dictated and finalized at location A. IMPRESSION: 1. Mild perihilar bronchial wall thickening without focal airspace opacities wh ich could be seen with bronchitis, reactive air disease/asthma or minimal pulmo nary edema.
--- NOTE | 2025-08-01 11:22 | ECG_ITS ---
Test Date: 2025-08-01 11:28:10 Measurements Intervals [place] Rate: 86 P: 43 MD: 163 QRS: 9 QRSD: 76 T: 56 QT: 376 QTc: 452 Interpretive Statements SINUS RHYTHM LEFT VENTRICULAR HYPERTROPHY AND ST-T CHANGE CANNOT R/O SEPTAL INFARCT, AGE INDETERMINATE MINIMAL Q WAVES- HIGH LATERAL LEADS BORDERLINE ST-T WAVE ABNORMALITY- DIFFUSE LEADS BASELINE ARTIFACT- I, II, III, AVR, AVL A,VF ABNORMAL ECG Compared to ECG 08/01/2025 10:28:57 No significant changes Electronically Signed On 08-01-2025 15:20:35 CDT by Deshaun Johnson D.O.
--- OUTSIDE RECORDS SUMMARY | 2025-08-01 11:32 | XMS_ITS | Clinical Summary ---
Author Organization [facility] Address [address] [place] [address] Care Team Providers Care Draughtsman Name Role Phone Cassandra Hernandez MD Primary Care Provider + Source Comments [facility],non-owned Affiliates and Associated Physician Practices is amultiple site organization consisting of ambulatory clinics and hospital sitesin [place], [place], [place] and [place]. This disclosure is being madepursuant to the Care Everywhere program and may not contain all information available regarding this patient. Last updated 18.[facility] [employer] Allergies No known active allergies Medications * Be aware that medications may not be up to date on this document. Alwaysverify current medications with the patient. furosemide (LASIX) 20 MG tablet Take 20 mg by mouth once daily Active atorvastatin (LIPITOR) 80 MG tablet Take 80 mg by mouth at bedtime Active glimepiride (AMARYL) 2 MG tablet Take 1 tablet by mouth daily with breakfast 30 tablet 11/25/19 18 Active insulin glargine (LANTUS) pen Inject 60 Units subcutaneously once daily In AM 11/25/19 18 Active SITagliptin (JANUVIA) 100 MG tablet Take 1 tablet by mouth once daily 30 tablet 11/25/19 18 Active dapagliflozin propanediol (FARXIGA) 5 MG tablet Take 1 tablet by mouth every morning 30 tablet 11/25/19 18 Active Active Problems Problem Noted Date Diagnosed Date Chest pain 11/24/2017 Immunizations Immunization Administration Dates Next Due TDAP (7yrs+) 04/29/2012 Family History Medical History Relation Name Comments CVA Father Diabetes - Type 2 Father Hypertension Father Other Father heart attack; O SA Cancer - Uterine Mother Relation Name Status Comments Father Mother Social History Tobacco Use Types Packs/Day Years Used Date Smoking Tobacco: Never Smokeless Tobacco: Never Tobacco Cessation:Counseling Given: No Alcohol Use Standard Drinks/Week Comments No 0 (1 standard drink = 0.6 oz pur e alcohol) Comments No Sex and Gender Information Value Date Recorded Sex Assigned at Not on file 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 Gender Identity Not on file Sexual Orientation Not on file Last Filed Vital Signs Vital Sign Reading Time Taken Comments Blood Pressure 154/73 11/25/2017 12:26 PM LABOR OPERATOR Pulse 73 11/25/2017 12:26 PM LABOR OPERATOR Temperature 36.9 C (98.4 F) 11/25/2017 12:26 PM LABOR OPERATOR Respiratory Rate 18 11/25/2017 12:26 PM LABOR OPERATOR Oxygen Saturation 93% 11/25/2017 12:26 PM LABOR OPERATOR Inhaled Oxygen Concentration - - Weight 75.8 kg (167 lb) 11/24/2017 9:41 AM LABOR OPERATOR Height 149.9 cm (4' 11) 11/24/2017 9:41 AM LABOR OPERATOR Body Mass Index 33.73 11/24/2017 9:41 AM LABOR OPERATOR Plan of Treatment Health Maintenance Due Date Last Done Comments BONE DENSITY TESTING 1959 COLOGUARD (AGES 45-75) - COL ON CA SCREENING 1959 COLON MONITORING 1959 COLONOSCOPY - COLON CA SCREENING 1959 CT COLONOGRAPHY - COLON CA SCREENING 1959 Colorectal Cancer Screening 1959 FIT - COLON CA SCREENING 1959 FLEX SIG - COLON CA SCREENING 1959 MAMMOGRAM 1959 HIV SCREENING 1974 HEPATITIS C SCREENING 09/26/1977 PAP SMEAR 1980 PNEUMOCOCCAL VACCINE 50+ (1 of 1 - PCV) 2009 ZOSTER VACCINE (1 of 2) 2009 Respiratory Syncytial Virus (RSV) Vaccine Pt: or over 60 yrs (1 - Risk 60-74 years 1-dose series) 2019 DTAP/TDAP/TD VACCINES (2 - T d or Tdap) 04/29/2022 04/29/2012 DEPRESSION SCREENING 10/16/2024 COVID-19 VACCINE (2023-2 5 season) 2025 INFLUENZA VACCINE (#1) 2025 HEPATITIS B VACCINE Aged Out No longe r eligible based on patient's age to complete this topic HIB VACCINE Aged Out No longer eligi ble based on patient's age to complete this topic HPV VACCINE Aged Out No longer eligi ble based on patient's age to complete this topic MENINGOCOCCAL (Group B) VACC INE SHARED DECISION-MAKING Aged Out No longer eligibl e based on patient's age to complete this topic MENINGOCOCCAL GROUPS A/C/Y/W VACCINE Aged Out No longer eligible b ased on patient's age to complete this topic Insurance [facility] Advance Directives * Full Code (Latest Code Status on File) Date Activated Date Inactivated Comments 11/24/2017 1:22 PM 11/25/2017 5:36 PM Care Teams Draughtsman Relationship Specialty Start Date End Date Cassandra Hernandez MD [address] [place] [address] PCP - General Family Medicine 11/05/13
--- OUTSIDE RECORDS SUMMARY | 2025-08-01 11:33 | XMS_ITS | Clinical Summary ---
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 Gender Identity Not on file Sexual Orientation Not on file Plan of Treatment Health Maintenance Due Date Last Done Comments Hepatitis C Virus (HCV) Screening 1960 TdaP Immunization 1959 Cologuard 2004 Colonoscopy 2004 Colorectal Cancer Screening 2004 Immunochemical Fecal Occult Blood 2004 Pneumococcal Immunization (5 0+ years) (1 of 1 - PCV) 2009 Zoster Immunization (1 of 2) 2009 Influenza Immunization (#1) 2025 SARS-COV-2 Immunization ( - 2023- season) 2025 Respiratory Syncytial Virus (RSV) Immunization (Adult) (1 - 1-dose 75+ series) 2034 Hepatitis B Immunization Aged Out No longer eligible based on patient's age to complete this topic Human Papillomavirus (HPV) Immunization Aged Out No longer eligible b ased on patient's age to complete this topic Meningococcal Immunization (ACWY) Aged Out No longer eligible based on patient's age to complete this topic Rotavirus Immunization Aged Out No lo nger eligible based on patient's age to complete this topic
--- OUTSIDE RECORDS SUMMARY | 2025-08-01 11:33 | XMS_ITS | Patient Health Record ---
Author Organization [facility] Address [address] [place], [place] [id number] Care Team Providers Care Ranch Cook Name Role Phone SUSI FUNES Unavailable [phone] Answer, Declined Unavailable Unavailable Allergies Allergen (clinical drug ingredient) Drug/Non Drug Allergy documented on EMR Reaction Allergy Type Onset Date Status ciprofloxacin Cipro Unknown Drug Allergy Act althea Penicillin Unknown Drug Allergy Active Reason For Referral No Information Medications Medication SIG (Take, Route, Frequency, Duration) Notes Start Date End Date Status metformin hydrochloride 1000 MG Oral Tablet ORAL metformin hydrochloride 1000 MG Oral TabletOriginal Medicationmetformin hydrochloride 1000 MG Oral Tablet *Reorder from [facility] - [employer] for eRx and Interaction Alerts* 014 Active hydrochlorothiazide 100 MG Oral Tablet ORAL hydrochlorothiazide 100 MG O ral TabletOriginal Medicationhydrochlorothiazide 100 MG Oral Tablet *Reorder from [facility] - [employer] for eRx and Interaction Alerts* 014 Active insulin detemir 100 UNT/ML Injectable Solution [Levemir] insulin detemir 100 UNT/ML Injectable Solution [Levemir]Original Medicationinsulin detemir 100 UNT/ML Injectable Solution [Levemir] *Reorder from youbeQ - [employer] for eRx and Interaction Alerts* 014 Active Social History Tobacco Use: Social History Observation Description Date Details (start date - stop date) Never Smoker NA - NA Tobacco Control (Standard) Question Answer Notes Tobacco use: Nonsmoker Vital Signs Height-cm 149.86 cm 10/07/2024 Weight-kg 76.2 kg 10/07/2024 Height 59 in 10/07/2024 Weight 168 lbs 10/07/2024 BMI 33.93 kg/m2 10/07/2024 Encounters Encounter Location Date Provider Diagnosis [facility] [address] [facility] [address] [place], [place] [id number] 09/23/2024 SUSINATALIA FULLERSEBASTIÁN Onychomycosis B35.1 ; 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 ; Ingrowing nail L60.0 ; Atherosclerosis of [place] arteries of extremities with intermittent claudication, bilateral legs I70.213 and Pain in right foot M79.671 [facility] [address] [facility] [address] [place], [place] [id number] 10/07/2024 SUSI JAYLONMALIKSEBASTIÁN Ingrowing nail L60.0 ; Cellulitis of right toe L03.031 ; Cellulitis of left toe L03.032 and Encounter for other specified surgical aftercare Z48.89 Assessments Encounter Date Diagnosis (ICD Code) Assessment Notes Treatment Notes Treatment Clinical Notes Section Notes 10/07/2024 Cellulitis of right toe (ICD-10 - L03.031) 10/07/2024 Ingrowing nail (ICD-10 - L60.0) 09/23/2024 Onychomycosis (ICD-10 - B35.1) 09/23/2024 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 I discussed removal of the offending nail border and chemical matrixectomy to prevent regrowth. The patient decided on permanent removal of the nail border. The consent was signed and placed in the patients chart and all questions were answered. Following skin prep, the toe was injected with 3ccs of a 1:1 mixture of 0.5% marcaine plain and 1% lidocaine plain. A digital tournequet was applied and the offending nail borders was removed. Three applications of 89% phenol for 30 seconds each, were applied to the nail matrix to prevent regrowth. The digital tourniquet was released and the toe was cleansed with isopropyl alcohol. A dry sterile compressive dressing was applied and the patient was given soaking instructions. 09/23/2024 Atherosclerosis of [place] arteries of extremities with intermittent claudication, bilateral legs (ICD-10 - I70.213) 09/23/2024 Pain in right foot (ICD-10 - M79.671) 10/07/2024 Other I advised the patient that no further treatment is necessary at this time. If the condition should worsen they should call the office. Plan Of Treatment No Information Insurance Providers Payer Name Payer Address Payer Phone Subscriber Number Group Number Insured Name Patient Relationship to Insured Coverage Start Date Coverage End Date [employer] [address] [address] [place] [address] [id number] ALIA QUARLES Self - patient is the insured Medical (General) History Medical History History ICD Code Diabetic Leg/Feet cramps
[2025-08-01 12:16] LABS: Hematocrit 45.4 % (37.0-47.0); Hemoglobin 14.5 g/dL (12.0-15.0); Immature Granulocyte Percent A 0.3 % (0-0.5); Lymphocytes Absolute Auto 2.83 K/mm3 (0.9-3.2); Mean Corpuscular HGB Conc 31.9 g/dl (32-36); Mean Corpuscular Hemoglobin 27.8 pg (26-34); Mean Corpuscular Volume 87.1 fl (80-100); Nucleated Red Blood Cells Absolute Auto 0.000 K/mm3 (0.0-0.012); Nucleated Red Blood Cells Perc 0.0 % (0.0-0.2); Platelet Count Result 304 k/mm3 (150-375); Red Blood Count 5.21 M/mm3 (4.2-5.4); White Blood Count 13.0 K/mm3 (4.5-10.0)
[2025-08-01 12:29] LABS: Alanine Aminotransferase 22 U/L (6-35); Albumin Level 4.8 g/dL (3.5-5.1); Alkaline Phosphatase 98 U/L (38-126); Anion Gap 12 mmol/L (4-12); Aspartate Amino Transferase 30 U/L (14-36); Bilirubin,Total 1.0 mg/dL (0.2-1.3); Blood Urea Nitrogen 20 mg/dL (7-17); Calcium 9.9 mg/dL (8.4-10.2); Carbon Dioxide 25 mmol/L (22-30); Chloride 105 mmol/L (98-107); Estimated Glomerular Filt Rate 54; Glucose 273 mg/dL (65-110); Lipase 38 U/L (23-300); Potassium 3.6 mmol/L (3.4-5.0); Sodium 142 mmol/L (137-145); Total Protein 9.7 g/dL (6.3-8.2)
[2025-08-01 12:31] LABS: Add Urine Microscopic? YES; Appearance Urine Cloudy (Clear); Budding Yeast Urine Present /hpf; Glucose Urine UA 3+ mg/dL (Negative); Leukocyte Esterase Ur Trace LEU/UL (Negative); Nitrate Urine Negative (Negative); Specific Grav Ur 1.034 (1.001-1.035)
--- NOTE | 2025-08-01 13:02 | ED.GENADULT ---
HPI - General Adult General Chief complaint: Nausea/Vomiting/Diarrhea Stated complaint: body aches Time Seen by Provider: 08/01/25 11:55 History of Present Illness HPI narrative: Padmini Brown is a 64-year-old female with past medical history of hypertension, diabetes, MIs years ago, hyperlipidemia who presents today with complaints of having diarrhea for 2 days, vomiting that started last night, all over abdominal soreness no specific pain tenderness anywhere in the abdomen and she started to have some chest tightness this morning rating about a 5/10 she also states that she had is having indigestion and belching frequently today that is like brought a 6. She denies shortness of breath denies fevers or chills. Related Data Home Medications ?Medication ?Instructions ?Recorded ?Confirmed ?Last Taken ?Type aspirin 81 mg chewable tablet 81 mg PO DAILY 03/27/23 05/05/25 Unknown History insulin lispro 100 unit/mL 1 sliding scale dose continuous 02/19/25 05/05/25 Unknown History subcutaneous solution (Humalog subcutaneous infusion USEASDIRECTD U-100 Insulin) Allergies Allergy/AdvReac Type Severity Reaction Status Date / Time ciprofloxacin (From Cipro) Allergy Severe tongue Verified 08/01/25 11:14 swelling losartan Allergy Intermediate Abdominal Verified 08/01/25 11:14 Pain MYCHAL Inhibitors AdvReac Intermediate angioedema Verified 08/01/25 11:14 Review of Systems Review of Systems: All systems reviewed & are unremarkable except as noted in HPI and below PMFSH Past Medical History Medical History Adenomatous colon polyp Helicobacter positive gastritis HTN (hypertension), benign vaginal deliveries Acute appendicitis Mitral valve prolapse Heart disease Mixed hyperlipidemia Ganglion cyst of volar aspect of right wrist Heart attack Vitamin B2 deficiency Benign reactive hypertension Hyperlipidemia associated with type 2 diabetes mellitus Type 2 diabetes mellitus with diabetic chronic kidney disease Surgical History Surgical History Hx of cholecystectomy H/O breast augmentation History of bilateral tubal ligation S/P shoulder surgery S/P abdominoplasty Family History Family History Father Hypertension Family history of elevated blood lipids Family history of diabetes mellitus in first degree relative High cholesterol Mother Family history of malignant neoplasm of uterus, Onset Age: 49 Patient's mother is Sibling Gunshot wound Other Diabetes mellitus Family history of heart disease in male family member before age 55 Family history of malignant neoplasm Social History Social History Social History: Lives at home with her . She denies tobacco use. Rarely drinks alcohol. No drug use. No history of drug use. No history of heavy alcohol use. 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 She nominates her to be the individual would make medical decisions for her if she is unable. Smoking status: Never smoker Second hand tobacco smoke exposure: No Alcohol intake: never Alcohol use details: occasionally Substance use: never Substance use type: does not use Do You Feel Safe in your Home?: Yes Lack of Transportation: No Lack of Food: Never True Current Housing: I Have Housing Concerned About Future Housing: No Difficulty Paying Gas/Electric Bills: No Difficulty Paying for Meds: YES Currently Unemployed: YES Education: Bachelor's Degree Difficulty w/ Childcare or Family Care: No Living arrangements: with family Occupation/Education: retired Gender identity (if verbalized by the patient): Female Sexual Orientation (if Verbalized by the Patient): Straight or Heterosexual Spiritual care concerns: No Exam Narrative: GENERAL: well-nourished, and in no acute distress. HEAD: Normocephalic, atraumatic. EYES: PERRLA and EOMI. ENT: Nares clear, no rhinorrhea or epistaxis. Mucous membranes moist. NECK: Supple. No adenopathy or masses. CHEST: Clear to auscultation. No respiratory distress. No wheezes rales or rhonchi HEART: Regular rate and rhythm. No murmur heard. Normal peripheral pulses. ABDOMEN: Soft, nontender, nondistended, normal active bowel sounds. EXTREMITIES: Normal range of motion. No edema. SKIN: Warm, dry, no rash. NEURO: No focal deficits. Alert and oriented x3. PSYCH: Normal mood and affect. Course Vital Signs Vital signs: Vital Signs Temperature 36.3 C L 08/01/25 11:11 Pulse Rate 80 08/01/25 11:11 Respiratory Rate 18 08/01/25 11:11 Blood Pressure 146/69 H 08/01/25 11:11 Pulse Oximetry 98 08/01/25 11:11 Temperature 36.3 C L 08/01/25 11:11 Pulse Rate 80 08/01/25 11:11 Respiratory Rate 18 08/01/25 11:11 Blood Pressure 146/69 H 08/01/25 11:11 Pulse Oximetry 98 08/01/25 11:11 Medical Decision Making MDM Narrative Medical decision making narrative: 64-year-old female with GI complaints with reports of having diarrhea for the past 2 days, vomiting that started last night has not healed keep anything down since yesterday she complains of all over abdominal soreness and she states that she start to have some chest tightness today feeling indigestion with frequent belching. Concern for : Gastroenteritis, DKA, dehydration, Appendicitis, diverticulitis, pyelonephritis, Acute cardiac ischemia Plan to check labs along with cardiac workup and CT scan abdomen chest x-ray while treating her with IV fluids, Zofran, ketorolac and famotidine EKG-sinus rate 86 CBC with mild leukocytosis of 13, hemodynamically stable, CMP BUN of 20, creatinine 1.02, GFR 54, glucose 273 with normal bicarb and normal anion gap. Lipase 38- Troponin 1-negative Troponin 2- Negative Lactate- Negative BNP - Negative UA-cloudy, 1+ protein, 3+ glucose, 1+ ketones, trace leuks, rbc's 6-10, white blood cells 21-50, 1+ bacteria, positive for yeast CT abdomen pelvis- 1. Fluid throughout the colon consistent with nonspecific diarrhea. No other acute intra-abdominal/pelvic process. 2. Increasing size of a 2.3 cm enhancing mass at the lower pole of the left kidney consistent with renal cell carcinoma. 3. Small sliding-type hiatal hernia. 4. 2.7 cm uterine fibroid. 5. Small widemouthed fat-containing umbilical hernia. Chest x-ray- Mild perihilar bronchial wall thickening without focal airspace opacities which could be seen with bronchitis, reactive air disease/asthma or minimal pulmonary edema Patient re-evaluated and updated on findings thus far, she has pain that she is feeling a lot better we did p.o. challenge urine she is keeping water down she no longer has any of the chest tightness and states her abdomen is feeling better as well. Based off the CT findings discussed starting her on Imodium to help slow down the diarrhea and she does not want to do that she says she is okay with that letting it run its course. Regarding the mass that was found on her left kidney I did reach out to urology and they are planning to reach out to her to do follow-up imaging and evaluation on what needs to be done next. They said that she can call them on Monday but they will likely be getting contact with her early next week to get things scheduled. I updated her on the finding and the urology consult this will be an outpatient workup, she is comfortable with this plan. I let her know that as long as her 2nd troponin is negative we will be able to send her home with continuation of nausea medicine and treatment for her urinary tract infection with urology follow-up regarding the renal mass. Patient is agreeable to this plan and denies seeing anything further at this time. Medical Records Medical records reviewed: Yes I reviewed the external patient's medical records. Vital Signs Vital Signs: Vital Signs Temperature 36.3 C L 08/01/25 11:11 Pulse Rate 80 08/01/25 11:11 Respiratory Rate 18 08/01/25 11:11 Blood Pressure 146/69 H 08/01/25 11:11 Pulse Oximetry 98 08/01/25 11:11 Temperature 36.3 C L 08/01/25 11:11 Pulse Rate 80 08/01/25 11:11 Respiratory Rate 18 08/01/25 11:11 Blood Pressure 146/69 H 08/01/25 11:11 Pulse Oximetry 98 08/01/25 11:11 Vitals reviewed Lab Data Lab results reviewed: Yes I reviewed the patient's lab results. 08/01/25 12:05 08/01/25 12:05 Labs: Lab Results 08/01/25 08/01/25 Range/Units 12:03 12:05 WBC 13.0 H (4.5-10.0) K/mm3 RBC 5.21 (4.2-5.4) M/mm3 Hgb 14.5 (12.0-15.0) g/dL Hct 45.4 (37.0-47.0) % MCV 87.1 (80-100) fl MCH 27.8 (26-34) pg MCHC 31.9 L (32-36) g/dl RDW 13.1 (11.5-14.5) % Plt Count 304 (150-375) k/mm3 MPV 10.8 H (7.4-10.4) fl Immature Gran % (Auto) 0.3 (0-0.5) % Neut % (Auto) 71.7 (45.5-73.1) % Lymph % (Auto) 21.8 (18.3-44.2) % Randall % (Auto) 5.3 (2.6-8.5) % Eos % (Auto) 0.7 (0-4.4) % Baso % (Auto) 0.2 (0.2-1.2) % Lymph # (Auto) 2.83 (0.9-3.2) K/mm3 Randall # (Auto) 0.7 H (0.1-0.6) K/mm3 Eos # (Auto) 0.1 (0-0.3) K/mm3 Baso # (Auto) 0.0 (0.0-0.1) K/mm3 Abs Immat Gran (auto) 0.04 H (0.00-0.031) K/mm3 Absolute Neuts (auto) 9.3 H (1.3-6.7) K/mm3 Absolute Nucleated RBC 0.000 (0.0-0.012) K/mm3 Nucleated RBC % 0.0 (0.0-0.2) % Sodium 142 (137-145) mmol/L Potassium 3.6 (3.4-5.0) mmol/L Chloride 105 (98-107) mmol/L Carbon Dioxide 25 (22-30) mmol/L Anion Gap 12 (4-12) mmol/L BUN 20 H D (7-17) mg/dL Creatinine 1.02 H (0.7-1.0) mg/dL Estim Creat Clear Calc Not Reportable Estimated GFR 54 L (59 - ) Glucose 273 H (65-110) mg/dL Calcium 9.9 (8.4-10.2) mg/dL Total Bilirubin 1.0 (0.2-1.3) mg/dL AST 30 (14-36) U/L ALT 22 (6-35) U/L Alkaline Phosphatase 98 (38-126) U/L Troponin I < 0.012 (0.000-0.034) ng/mL Total Protein 9.7 H (6.3-8.2) g/dL Albumin 4.8 (3.5-5.1) g/dL Lipase 38 (23-300) U/L Urine Color Dark yellow (Yellow) Urine Appearance Cloudy H (Clear) Urine pH 5.5 (5.0-9.0) Ur Specific Clemons 1.034 (1.001-1.035) Urine Protein 1+ H (Negative) mg/dL Urine Glucose (UA) 3+ H (Negative) mg/dL Urine Ketones 1+ H (Negative) mg/dL Ur Blood (Man) Negative (Negative) Urine Nitrate Negative (Negative) Urine Bilirubin Negative (Negative) Urine Urobilinogen 1.0 (<2.0) mg/dL Leukocyte Esterase Rfl Trace H (Negative) CHANG/UL Urine RBC 6-10 H (0-2) /hpf Urine WBC 21-50 H (0-3) /hpf Ur Squamous Epith Cells Moderate (Few) /hpf Urine Bacteria 1+ H /hpf Urine Casts 3-5 Urine Yeast (Budding) Present H (None) /hpf Imaging Data Radiologist's impression: Impressions Chest X-Ray 08/01/25 13:27 IMPRESSION: 1. Mild perihilar bronchial wall thickening without focal airspace opacities which could be seen with bronchitis, reactive air disease/asthma or minimal pulmonary edema. Abdomen/Pelvis CT 08/01/25 13:53 IMPRESSION: 1. Fluid throughout the colon consistent with nonspecific diarrhea. No other acute intra-abdominal/pelvic process. 2. Increasing size of a 2.3 cm enhancing mass at the lower pole of the left kidney consistent with renal cell carcinoma. 3. Small sliding-type hiatal hernia. 4. 2.7 cm uterine fibroid. 5. Small widemouthed fat-containing umbilical hernia. ECG Data EKG #1: ECG completion date: 08/01/25 ECG completion time: 11:28 Prior ECG tracings: available for review Interpretation: Rate 86 [place] 163 QRSd 76 QT 376 QTc 452 --Adrian-- P 43 QRS 9 T 56 SINUS RHYTHM LEFT VENTRICULAR HYPERTROPHY AND ST-T CHANGE [VOLTAGE CRITERIA PLUS ST/T ABNORMALITY] POSSIBLE SEPTAL MYOCARDIAL INFARCTION , OF INDETERMINATE AGE [30 ms Q WAVE IN V1/V2] No significant changes Discharge Plan Discharge Clinical Impression: Acute UTI, Candidal UTI (urinary tract infection) Nausea & vomiting Qualifiers: Vomiting type: unspecified Qualified Code(s): R11.2 - Nausea with vomiting, unspecified Diarrhea Qualifiers: Diarrhea type: unspecified type Qualified Code(s): R19.7 - Diarrhea, unspecified Patient Disposition: Home Condition: Stable Instructions: Antibiotic Form, Acute Nausea and Vomiting (ED), Acute Diarrhea (ED) Additional Instructions: Please continue to take the cephalexin every 8 hours for 5 days for urinary tract infections Please continue to take the ondansetron for the nausea as ordered if needed Please continue to take the famotidine once daily for acid reflux GERD symptoms Please call Monday morning to follow-up with urology regarding the findings on the CT scan, again there was a mass found on your left kidney that needs followed up. Follow-up with your primary care doctor in the next week to ensure you are feeling improved. If you do develop any new or worsening symptoms, unable to keep any liquids down, increased pain, fever, chest pain shortness of breath as always return to the emergency department. Patient Language: East Timorese Prescriptions: New ondansetron 4 mg tablet,disintegrating 4 mg PO Q6H PRN (Reason: nausea and vomiting) Qty: 14 0RF famotidine 20 mg tablet 20 mg PO DAILY Qty: 20 0RF cephalexin 500 mg capsule 500 mg PO Q8H 5 Days Qty: 15 0RF No Action nitroglycerin 0.4 mg tablet, sublingual 0.4 mg sublingual Q5M PRN (Reason: chest pain) Qty: 10 0RF Rx Instructions: do not exceed 3 doses per episode (DME) Omnipod 5 G6-G7 Pods (Gen 5) Cartridge See Rx Instructions .Route Qty: 90 3RF Rx Instructions: change every day please send dexcom G7 compatible pods only insulin lispro [Humalog U-100 Insulin] 100 unit/mL solution 1 sliding scale dose continuous subcutaneous infusion USEASDIRECTD aspirin 81 mg tablet,chewable 81 mg PO DAILY gabapentin 300 mg capsule 300 mg PO TID Qty: 90 4RF Patient Comments: PT TAKES PRN cyclobenzaprine 5 mg tablet 5 mg PO TID PRN (Reason: muscle spasm) Qty: 60 0RF Mounjaro 2.5 mg/0.5 mL pen injector 2.5 mg subcut WEEKLY Qty: 2 0RF Rx Instructions: for 4 weeks triamcinolone acetonide 0.1 % cream 1 applic topical TID PRN (Reason: rash) Qty: 15 0RF (DME) Omnipod 5 G6 Intro Kit (Gen 5) Cartridge See Rx Instructions .Route Qty: 1 0RF Rx Instructions: intro kit (DME) insulin pump cart,automated,BT Cartridge See Rx Instructions .Route Qty: 45 3RF Rx Instructions: change every 2-3 days linaclotide 145 mcg capsule 145 mcg capsule 0RF furosemide 20 mg tablet See Rx Instructions .ROUTE .COMPLEX Qty: 30 3RF Dose Instruction: TAKE 1 TABLET BY MOUTH IN THE MORNING Rx Instructions: TAKE 1 TABLET BY MOUTH IN THE MORNING (DME) [employer] G7 Sensor Device See Rx Instructions .ROUTE .MEDSUPPLY Qty: 9 0RF Rx Instructions: change every 10 days hydralazine 25 mg tablet 25 mg PO TID Qty: 270 1RF tretinoin 0.1 % cream See Rx Instructions .ROUTE .COMPLEX Qty: 20 0RF Dose Instruction: APPLY CREAM TOPICALLY ONCE DAILY AT BEDTIME Rx Instructions: APPLY CREAM TOPICALLY ONCE DAILY AT BEDTIME rosuvastatin 10 mg tablet 10 mg PO DAILY Qty: 90 1RF amlodipine 5 mg tablet See Rx Instructions .ROUTE .COMPLEX Qty: 90 0RF Dose Instruction: Take 1 tablet by mouth once daily Rx Instructions: Take 1 tablet by mouth once daily Follow-up/Referrals: Jonathan Wayne MD [Primary Care Provider, Family Practice] - 1 Week Zora Bettencourt APRN [Advanced Practice Nurse, Urology] - 2 Days Time of Disposition: 17:05
--- OUTSIDE RECORDS SUMMARY | 2025-08-01 13:04 | XMS_ITS | Clinical Summary ---
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
--- OUTSIDE RECORDS SUMMARY | 2025-08-01 13:04 | XMS_ITS | Clinical Summary ---
Author Organization [facility] Address [address] [place] [address] Care Team Providers Care Rn Interventional Name Role Phone Cassandra Hernandez MD Primary Care Provider + Source Comments [facility],non-owned Affiliates and Associated Physician Practices is amultiple site organization consisting of ambulatory clinics and hospital sitesin [place], [place], [place] and [place]. This disclosure is being madepursuant to the Care Everywhere program and may not contain all information available regarding this patient. Last updated 18.[facility] [employer] Allergies No known active allergies Medications * [...] on file Legal Sex Female 4:22 AM MEDICAL PATHOLOGIST Gender Identity Not on file Sexual Orientation Not on file Last Filed Vital Signs Vital Sign Reading Time Taken Comments Blood Pressure 154/73 11/25/2017 12:26 PM MEDICAL PATHOLOGIST Pulse 73 11/25/2017 12:26 PM MEDICAL PATHOLOGIST Temperature 36.9 C (98.4 F) 11/25/2017 12:26 PM MEDICAL PATHOLOGIST Respiratory Rate 18 11/25/2017 12:26 PM MEDICAL PATHOLOGIST Oxygen Saturation 93% 11/25/2017 12:26 PM MEDICAL PATHOLOGIST Inhaled Oxygen Concentration - - Weight 75.8 kg (167 lb) 11/24/2017 9:41 AM MEDICAL PATHOLOGIST Height 149.9 cm (4' 11) 11/24/2017 9:41 AM MEDICAL PATHOLOGIST Body Mass Index 33.73 11/24/2017 9:41 AM MEDICAL PATHOLOGIST Plan of Treatment Health Maintenance Due Date [...] patient's age to complete this topic Insurance [facility] Advance Directives * Full Code (Latest Code Status on File) Date Activated Date Inactivated Comments 11/24/2017 1:22 PM 11/25/2017 5:36 PM Care Teams Rn Interventional Relationship Specialty Start Date End Date Cassandra Hernandez MD [address] [place] [address] PCP - General Family Medicine 11/05/13
--- OUTSIDE RECORDS SUMMARY | 2025-08-01 13:04 | XMS_ITS | Data Portability ---
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 Patient will come back in a year unless there are new symptoms. [email or web address] Not available 09/05/2022 14:54:06 07/26/2024 07/26/2024 Annual gynecological exam performed. Patient will come back in a year unless there are new symptoms. Not available 07/22/2024 12:23:59 07/28/2025 07/28/2025 Annual gynecological exam performed. Patient will come back in a year unless there are new symptoms. [email or web address] Not available 07/28/2025 09:00:16 Plan of Treatment Reminders Order Date Submit Date Provider Last Modified By Organization Details Last Modified Time Details Appointments None recorded . Lab urinalys is, dipstick 2023 024 [email or web address] [address], [address], [place], [address], 10:08:31 culture, urine 2023 024 [facility] (Lab), [address], [place], [address], 10/14/202 4 07:43:22 pap, IG + HR HPV - HPV regardle ss but if HPV is positive need subtypin g 16,18/45 2023 024 [facility] (Lab), [address], [place], [address], 4 18:52:45 Referral dermatol ogist referral - Melanocy tic nevus of skin Please contact this patient to schedule an appointm ent. Attached are the patients demograp hics and most recent office visit notes. If you have any question s, please contact me at [phone]. Thank you, Enid, Referral 's 2021 022 [facility], [address] [place] [address], [address], 3 13:16:03 Procedures None recorded . Surgeries None recorded . Imaging MAMMO, screenin g, digital, bilatera l 2024 025 [email or web address] [facility] [place], [facility] [address], [place], [address], 5 09:27:27 MAMMO, diagnost ic, digital, bilatera l - Pain in right breast 2023 024 [facility], [address], [address] [address], [place], [address], 4 09:33:54 MAMMO, diagnost ic, digital, bilatera l - Pain in right breast 2021 022 [email or web address] Not available 3 09:55:30 US, breast, unilater al 2021 022 [email or web address] Not available 3 09:55:30 DEXA, axial skeleton + vertebra l fracture assessme nt 2021 022 [email or web address] Not available 3 09:54:43 Medication Orders Macrobid 100 mg capsule 2023 024 [email or web address] [facility], [address] [facility], [place], [address], 09:02:00 Patient TargetsNo targets recorded. Patient InstructionsNo instructions recorded. Reason for Referral Quote Clerk Referral for M elanocytic nevus of skin Melanocytic nevus of skin Melanocytic nevus of skinPlease contact this patient to schedule an appointment.Attached are the patients demographics and most recent office visit notes.If you have any questions, please contact me at [phone].Thank you,Enid Referral's Referring Physician: Michelle Saha, SENIOR MARKET RESEARCH ANALYST, Encounter Date: 09/05/2022 Results Created Date Observation Date Name Description Value Unit Range Abnormal Flag Note LastModifiedBy Organization Detail LastModifiedTime 09/05/20 22 09/05/2022 IMAGE GUIDE D PAP AND HPV REGAR DLESS image guided Pap, HPV regardless of Pap result SEE RESULT S BELOW CASE REPOR T: Cytol ogy Gynec ologi americo Repor t Case: [id number] Autho ohfiliberto g Provi cecilia: Michelle Saha NP Colle cted: 09/05 1610 Order ing Locat ion: [place] [facility] Recei xiomara: 09/06 0350 First Scree n: Nacha mpass ak, Sivil ay, CT Rescr een: Stefan Peralta CT Speci men: Scree belén Pap - Image d, Cervi x STATE MENT OF ADEQU ACY: Satis facto ry for evalu ation Trans forma tion zone compo nent prese nt FINAL DIAGN OSIS: Negat althea for Intra epith elial Layla n or Ashkan reid (NIL) . Linsey sargent olivier d by Stefan Peralta CT on 09/09 at 9:03 AM ----- ----- ----- ----- ----- ----- ----- ----- ----- ----- ----- ----- ----- ----- ----- ----- ----- ---- HPV RESUL TS: HPV mRNA E6/E7 : No HPV mRNA Detec clifton NOTE: This high risk HPV mRNA assay detec ts fourt een high- risk HPV types (16, 18, 31, 33, 35, 39, 45, 51, 52, 56, 58, 59, 66, 68) witho ut diffe renti ation . COMME NT: Note: This speci men was revie wed by a Cytot echno logis t and/o r Patho logis t (as indic ated in this repor t) after evalu ation using the Thinp rep Imagi ng Syste m. CLINI AMERICO INFOR MATIO N: Menst rual Statu s: LMP (if appli cable ): Clini americo Histo ry/Pr eviou s Pap: Type of Neopl blanquita (if appli cable ): Signi fican t Clini americo Findi ngs: Other Histo ry: Hormo megan (if appli cable ): PAP EDUCA VIRAJ L NOTE: The Pap Test is a scree belén test with an inher ent false negat althea rate. Liqui d-bas ed sampl ing may decre ase, but will not elimi zaida, false negat althea resul ts. A negat althea resul t does not precl ude the prese nce and/o r devel opmen t of disea se, since the prese nce of abnor mal cells in the sampl e depen ds on the locat ion of the lesio n and sampl ing techn ique. Martin nued regul ar scree belén is the best metho d of cance r preve ntion . If repor clifton cytol ogic findi ng do not corre late with physi americo and/o r histo rical findi ngs, furth er inves tigat ion is recom mitchell d, as clini aric carpenter nted. Not Available [facility] (Lab) [address], [place], [address], 09/09/2022 10:05:50 07/26/20 24 07/26/2024 CULTU RE: URINE result report SEE RESULT S BELOW abnormal Test: Cultu re: Urine Speci men Sourc e: Urine - Clean Catch Speci men Type: Urine Speci men Date: 07/26 Resul t Date: 07/29 Resul t Statu s: Final resul t Abnor mal: Yes Resul steph Lab: [facility] [address] [facility] [address] Tel: [phone] CULTU RE ----- ----- ----- --- >100, 000 CFU/m l Klebs iella pneum oniae (Abno rmal) SUSCE PTIBI LITY ----- ----- ----- --- Klebs iella pneum oniae METHO D MICHELLE ----- ----- ----- ----- ----- ---- ----- ----- ----- ----- ----- - AMPIC ILLIN /SULB ACTAM <=8 ug/mL Susce ptibl e AZTRE ONAM <=4 ug/mL Susce ptibl e CEFAZ PADDY <=2 ug/mL Susce ptibl e CEFEP DAR <=2 ug/mL Susce ptibl e CEFTA ZIDIM E <=1 ug/mL Susce ptibl e CEFTR IAXON E <=1 ug/mL Susce ptibl e CIPRO FLOXA ADOLPH <=0.2 5 ug/mL Susce ptibl e GENTA MICIN <=2 ug/mL Susce ptibl e LEVOF LOXAC IN <=0.5 ug/mL Susce ptibl e MEROP ENEM <=1 ug/mL Susce ptibl e NITRO FURAN TOIN 64 ug/mL Inter media te PIPER ACILL IN/TA ZOBAC FUENTES <=8 ug/mL Susce ptibl e TOBRA MYCIN <=2 ug/mL Susce ptibl e TRIME THOPR IM/WEIR LFAME THOXA ZOLE <=2 ug/mL Susce ptibl e Not Available [facility] (Lab) [address] [facility], [place], [address], 07/29/2024 07:43:21 07/26/20 24 07/26/2024 IMAGE GUIDE D PAP AND HPV REGAR DLESS image guided Pap, HPV regardless of Pap result SEE RESULT S BELOW CASE REPOR T: Cytol ogy Gynec ologi americo Repor t Case: [id number] Autho lynda davian Provi cecilia: Hyuno guille, Sheela , ANP, REGULATORY COMPLIANCE OFFICER Colle cted: 07/26 0941 Order ing Locat ion: [place] [facility] [place] Recei xiomara: 07/28 1214 First Scree n: Stefan Peralta, CT Rescr een: Yamile Clayton , CT Speci men: Carmencita belén Pap - Image d, Cervi x STATE MENT OF ADEQU ACY: Satis facto ry for evalu ation Trans forma tion zone compo nent prese nt ----- ----- ----- ----- ----- ----- ----- ----- ----- ----- ----- ----- ----- ----- ----- ----- ----- ---- FINAL DIAGN OSIS: Negat althea for Intra epith elial Layla oshea or Ashkan reid (NIL) . Elect orville gallegos by Yamile Clayton , CT on 08/01 at 5:49 PM ----- ----- ----- ----- ----- ----- ----- ----- ----- ----- ----- ----- ----- ----- ----- ----- ----- ---- HPV RESUL TS: HPV mRNA E6/E7 : No HPV mRNA Detec clifton NOTE: This high risk HPV mRNA assay detec ts fourt een high- risk HPV types (16, 18, 31, 33, 35, 39, 45, 51, 52, 56, 58, 59, 66, 68) witho ut diffe renti ation . COMME NT: This speci men was revie wed by a Cytot echno logis t and/o r Patho logis t (as indic ated in this repor t) after evalu ation using the Thinp rep Imagi ng Syste m. CLINI AMERICO INFOR MATIO N: Menst rual Statu s: LMP (if appli cable ): Clini americo Histo ry/Pr eviou s Pap: Type of Neopl blanquita (if appli cable ): Signi fican t Clini americo Findi ngs: Other Histo ry: Hormo megan (if appli cable ): PAP EDUCA VIRAJ L NOTE: The Pap Test is a scree belén test with an inher ent false negat althea rate. Liqui d-bas ed sampl ing may decre ase, but will not elimi zaida, false negat althea resul ts. A negat althea resul t does not precl ude the prese nce and/o r devel opmen t of disea se, since the prese nce of abnor mal cells in the sampl e depen ds on the locat ion of the lesio n and sampl ing techn ique. Martin nued regul ar scree belén is the best metho d of cance r preve ntion . If repor clifton cytol ogic findi ng do not corre late with physi americo and/o r histo rical findi ngs, furth er inves tigat ion is recom mitchell d, as clini aric carpenter nted. Not Available [facility] (Lab) [address], [place], [address], 08/01/2024 18:52:45 07/26/20 24 07/26/2024 urina lysis , dipst ick Leukocytes - Not Available [facility] [address], [place], [address], 07/26/2024 09:42:30 07/26/20 24 07/26/2024 urina lysis , dipst ick Nitrite - Not Available [address], [place], [address], 07/26/2024 09:42:30 07/26/20 24 07/26/2024 urina lysis , dipst ick Urobilinogen - Not Available [facility] anth[address], [place], [address], 07/26/2024 09:42:30 07/26/2007/26/2024 urina lysis , dipst ick Protein trace Not Available [address], [place], [address], 07/26/2024 09:42:30 07/26/2007/26/2024 urina lysis , dipst ick pH 5 Not Available [address], [place], [address], 07/26/2024 09:42:30 07/26/2007/26/2024 urina lysis , dipst ick Specific [place] 1.020 Not Available [facility] nikolai [address], [place], [address], 07/26/2024 09:42:30 07/26/2007/26/2024 urina lysis , dipst ick Ketone - Not Available [address], [place], [address], 07/26/2024 09:42:30 07/26/2007/26/2024 urina lysis , dipst ick Bilirubin - Not Available [facility] [address], [place], [address], 07/26/2024 09:42:30 07/26/2007/26/2024 urina lysis , dipst ick Glucose 250mg/ dL Not Available [address], [place], [address], 07/26/2024 09:42:30 07/26/20 24 07/26/2024 urina lysis , dipst ick Appearance clear Not Available [facility] br[address], [place], [address], 07/26/2024 09:42:30 07/26/20 24 07/26/2024 urina lysis , dipst ick Color yellow Not Available [address], [place], [address], 07/26/2024 09:42:30 12/16/19 23 DEXA, axial skele ton + verte bral fract ure asses sment No observ ation record ed. [email or web address] Not Available 2022 12:29:23 12/23/19 23 Bone Densi ty Repor t No observ ation record ed. [email or web address] Not Available 01/19 12:24:36 10/01/20 24 2024 MAMMO , diagn ostic , digit al, bilat eral No observ ation record ed. SIMON [address], [place], [address], 10/15/2024 04:11:33 Result Notes None recorded. Problems Name Problem SNOMED Code Status Onset Date Resolution Date Notes Provider Name and Address Organization Details Recorded Time test negative 158755321 Active 2011 Negative Test;Pract ice ID: 0001 Not Available [facility] 0 18:21:36 Dysfuncti onal uterine bleeding Active 2011 DUB;Practi ce ID: 0001 Not Available [facility] 0 18:21:36 Ill-defin ed intestina l infection Active 2011 No Show Fee;Practi ce ID: 0001 Not Available [facility] 0 18:21:36 Postmenop ausal bleeding 39553074 Active 2013 Postmenopa usal bleeding;P concepción ID: 0001 Not Available [facility] 0 18:21:35 Glycosuri a 74643896 Active 2013 Glycosuria ;Practice ID: 0001 Not Available [facility] 0 18:21:35 Specializ ed medical examinati on Active 2013 Routine gynecologi americo examinatio n;Practice ID: 0001 Not Available [facility] 0 18:21:35 Screening for malignant neoplasm of rectum Active 2013 Screening for malignant neoplasms of the rectum;Rec orded Elsewhere: No Locatio n: [facility] rce: EHR Chroni c: N Practice ID: 0001 Billa ble Time: 05:30:00 PM Not Available [facility] 0 18:21:36 Screening for malignant neoplasm of cervix Active 2013 Screening for malignant neoplasms of the cervix;Rec orded Elsewhere: No Locatio n: [facility] rce: EHR Chroni c: Y Practice ID: 0001 Billa ble Time: 05:30:00 PM Not Available [facility] 0 18:21:36 Postopera tive follow-up visit Active 2013 Follow-up examinatio n, following unspecifie d surgery;Re corded Elsewhere: No Locatio n: [facility] rce: EHR Chroni c: N Practice ID: 0001 Billa ble Time: 04:30:00 PM Not Available [facility] 0 18:21:36 Vaginitis and vulvovagi nitis Active 2013 Vaginitis and vulvovagin itis, unspecifie d;Practice ID: 0001 Not Available [facility] 0 18:21:[address] Concept Active 2018 Encntr for surgical pathologist exam (general) (routine) w/o abn findings;R ecorded Elsewhere: No Locatio n: [facility] rce: EHR Chroni c: N Practice ID: 0001 Billa ble Time: 10:30:00 AM Not Available [facility] 0 18:21:[address] Concept Active 2018 Encntr for general adult medical exam w/o abnormal findings;R ecorded Elsewhere: No Locatio n: [facility] rce: EHR Chroni c: N Practice ID: 0001 Félix bruno Time: 10:30:00 AM Not Available [facility] 0 18:21:36 Problem Notes None recorded. Procedures Surgical History Date Name Laterality Status Provider Name and Address Organization Details Recorded Time 10/01/20 24 Date of Last Mammogram completed [facility] 07/28/2025 09:13:09 07/26/20 24 Date of Last Pap Smear completed [facility] 07/28/2025 09:00:53 12/12/19 23 Most Recent Bone Density completed [facility] 07/23/2024 12:57:56 10/16/19 20 abdominoplasty completed [facility] 09/05/2022 15:03:25 10/16/19 04 Breast reduction completed [facility] 09/05/2022 15:03:12 Imaging Results None recorded. Procedure Notes None recorded. Medical Equipment None Reported. Allergies Allergen ID Allergen Name Allergen Category Reaction Reaction Severity Criticality Documentation Date Start Date Code Code System Note Provider Name and Address Organization Details Recorded Time 46047 Product containin g penicilli n (product) medicatio n Not available Not available Not available 10/02/2020 32717 8001 SNOMED Comme nt: [facility]; Not Available [facility] 0 14:14:59 Medications Name Sig Start Date Stop Date Status Note LastModified by Organization Details LastModified Time tetracycl ine 500 mg capsule TAKE 1 CAPSULE BY MOUTH EVERY 6 HOURS FOR 2 WEEKS 07/26 completed Not Available Not Available Not Available celecoxib 200 mg capsule TAKE 1 CAPSULE BY MOUTH TWICE DAILY NEEDED FOR PAIN active Not Available Not Available No t Available cyclobenz aprine 10 mg tablet TAKE 1 TABLET BY MOUTH THREE TIMES DAILY NEEDED FOR MUSCLE SPASM 09/05 completed Not Available Not Available Not Available tretinoin 0.1 % topical cream APPLY CREAM TOPICALL Y ONCE DAILY AT BEDTIME active Not Available Not Available No t Available amoxicill in 500 mg capsule TAKE 1 CAPSULE BY MOUTH THREE TIMES DAILY 07/26 completed Not Available Not Available Not Available fluconazo le 100 mg tablet TAKE 2 TABLETS BY MOUTH ONCE DAILY ON THE FIRST DAY THEN 1 TABLET EACH DAY UNTIL RESOLVED 07/26 completed Not Available Not Available Not Available hydralazi ne 10 mg tablet TAKE 1 TABLET BY MOUTH THREE TIMES DAILY active Not Available Not Available No t Available atorvasta tin 80 mg tablet TAKE 1 TABLET BY MOUTH AT BEDTIME 07/28 completed Not Available Not Available Not Available nystatin 100,000 unit/mL oral suspensio n SWISH & SWALLOW 1 ML BY MOUTH ONCE DAILY 09/05 completed Not Available Not Available Not Available fluconazo le 150 mg tablet TAKE 1 TABLET BY MOUTH ONCE DAILY 09/05 completed Not Available Not Available Not Available benzonata te 200 mg capsule TAKE 1 CAPSULE BY MOUTH THREE TIMES DAILY 07/28 completed Not Available Not Available Not Available valacyclo vir 1 gram tablet TAKE 1 TABLET BY MOUTH THREE TIMES DAILY FOR 7 DAYS 07/28 completed Not Available Not Available Not Available hydrocodo ne 5 mg-acetam inophen 325 mg tablet TAKE 1 TABLET BY MOUTH EVERY 4 TO 6 HOURS NEEDED 07/26 completed Not Available Not Available Not Available fluconazo le 200 mg tablet TAKE 1 TABLET BY MOUTH ONCE A WEEK 07/26 completed Not Available Not Available Not Available metformin 850 mg tablet take 1 tablet by oral route 2 times every day with morning and evening meals 07/26 completed Prescrib ed Elsewher e: Yes Loca tion: [facility] odify By: dominick peterson DateTime : 12/14/19 12 04:00:00 PM Not Available Not Available Not Available Zithromax Z-Chris 250 mg tablet take 2 tablet by oral route every day for 1 day then 1 tablet (250 mg) by oral route once daily for 4 days 02/16 completed Prescrib ed Elsewher e: No Locat ion: [facility] odify By: susan Encount er DateTime : 02/13/20 14 10:08:43 AM Not Available Not Available Not Available hydralazi ne 25 mg tablet TAKE 1 TABLET BY MOUTH THREE TIMES DAILY 07/28 completed Not Available Not Available Not Available metronida zole 500 mg tablet TAKE 1 TABLET BY MOUTH EVERY 8 HOURS FOR 2 WEEKS 07/26 completed Not Available Not Available Not Available amlodipin e 5 mg tablet TAKE 1 TABLET BY MOUTH ONCE DAILY active Not Available Not Available No t Available simvastat in 80 mg tablet 09/05 completed Prescrib ed Elsewher e: Yes Loca tion: [facility] odify By: dominick peterson DateTime : 12/14/19 12 04:00:00 PM Not Available Not Available Not Available sulfameth oxazole 800 mg-trimet hoprim 160 mg tablet Take 1 tablet every 12 hours by oral route for 7 days. 07/28 completed Not Available Not Available Not Available triamcino lone acetonide 0.1 % topical cream APPLY CREAM EXTERNAL LY TO AFFECTED AREA THREE TIMES DAILY NEEDED FOR RASH 07/28 completed Not Available Not Available Not Available Duricef 500 mg capsule take 2 capsule (1G) by oral route every day 02/04 completed Prescrib ed Elsewher e: No Locat ion: [facility] odify By: monie kinsey DateTime : 01/03/20 12 11:00:00 AM Not Available Not Available Not Available dexametha sone 1 mg tablet TAKE 1 TABLET BY MOUTH THE NIGHT BEFORE TESTING AROUND 11 PM AND GO FOR BLOOD TEST NEXT DAY AROUND 8 AM 07/28 completed Not Available Not Available Not Available amlodipin e 10 mg tablet TAKE 1 TABLET BY MOUTH ONCE DAILY 09/05 completed Not Available Not Available Not Available pantopraz ole 40 mg tablet,de layed release TAKE 1 TABLET BY MOUTH IN THE MORNING active Not Available Not Available No t Available metformin 1,000 mg tablet TAKE 1 TABLET BY MOUTH TWICE DAILY 07/26 completed Not Available Not Available Not Available glimepiri de 4 mg tablet TAKE 1 TABLET BY MOUTH IN THE MORNING 07/28 completed Not Available Not Available Not Available losartan 25 mg tablet TAKE 1 TABLET BY MOUTH TWICE DAILY 09/05 completed Not Available Not Available Not Available nitroglyc ivelisse 0.4 mg sublingua l tablet DISSOLVE ONE TABLET UNDER THE TONGUE EVERY 5 MINUTES NEEDED FOR CHEST PAIN. DO NOT EXCEED A TOTAL OF 3 DOSES IN 15 MINUTES active Not Available Not Available No t Available gabapenti n 300 mg capsule TAKE 1 CAPSULE BY MOUTH THREE TIMES DAILY active Not Available Not Available No t Available furosemid e 20 mg tablet TAKE 1 TABLET BY MOUTH IN THE MORNING active Not Available Not Available No t Available insulin lispro (U-100) 100 unit/mL subcutane ous solution USE SLIDING SCLAE VIA CONTINUO US SUBCUTAN EOUS INFUSION DAILY FOR INSULIN PUMP, MAX DAILY DOSE OF 220 UNITS active Not Available Not Available No t Available methylpre dnisolone 4 mg tablets in a dose pack TAKE BY MOUTH DIRECTED ON INSIDE OF PACKAGE 09/05 completed Not Available Not Available Not Available Terazol 7 0.4 % vaginal cream insert 1 applicat orful by vaginal route every day for 7 days at bedtime 01/08 completed Prescrib jadiel Naranjo e: No Locat ion: [facility] odify By: tgingric h Encoun ter DateTime : 01/03/20 12 11:00:00 AM Not Available Not Available Not Available cefdinir 300 mg capsule TAKE 1 CAPSULE BY MOUTH EVERY 12 HOURS FOR 7 DAYS 09/05 completed Not Available Not Available Not Available fluticaso ne propionat e 50 mcg/actua tion nasal spray,andres pension USE 2 SPRAY(S) IN EACH NOSTRIL ONCE DAILY 07/28 completed Not Available Not Available Not Available amoxicill in 875 mg-potass ium clavulana te 125 mg tablet TAKE 1 TABLET BY MOUTH EVERY 12 HOURS 07/26 completed Not Available Not Available Not Available insulin lispro (U-100) 100 unit/mL subcutane ous pen INJECT 20 UNITS SUBCUTAN EOUSLY THREE TIMES DAILY IN ADDITION TO SLIDING SCALE WITH MAX DAILY DOSE OF 90 active Not Available Not Available No t Available cyclobenz aprine 5 mg tablet TAKE 1 TABLET BY MOUTH THREE TIMES DAILY NEEDED FOR MUSCLE SPASM active Not Available Not Available No t Available rosuvasta tin 10 mg tablet TAKE 1 TABLET BY MOUTH ONCE DAILY active Not Available Not Available No t Available memantine 5 mg-10 mg tablets in a dose pack TAKE BY MOUTH DIRECTED ON INSIDE OF PACKAGE 07/26 completed Not Available Not Available Not Available nitrofura ntoin monohydra te/macroc rystals 100 mg capsule Take 1 capsule every 12 hours by oral route for 7 days. 07/28 completed Not Available Not Available Not Available BD Ultra-Fin e Short Pen Needle 31 gauge x 5/16 USE TO INJECT INSULIN TWICE DAILY DIRECTED 09/05 completed Not Available Not Available Not Available Lantus Solostar U-100 Insulin 100 unit/mL (3 mL) subcutane ous pen INJECT 100 UNITS SUBCUTAN EOUSLY TWICE DAILY 07/28 completed Not Available Not Available Not Available Tradjenta 5 mg tablet TAKE 1 TABLET BY MOUTH IN THE MORNING 07/28 completed Not Available Not Available Not Available OneTouch Verio test strips USE 1 STRIP TO CHECK GLUCOSE 4 TIMES DAILY active Not Available Not Available No t Available Linzess 145 mcg capsule TAKE 1 CAPSULE BY MOUTH IN THE MORNING FOR CONSTIPA TION active Not Available Not Available No t Available Linzess 290 mcg capsule TAKE 1 CAPSULE BY MOUTH ONCE DAILY FOR 90 DAYS 07/28 completed Not Available Not Available Not Available Victoza 2-Chris 0.6 mg/0.1 mL (18 mg/3 mL) subcutane ous pen injector INJECT 1.2 MG SUBCUTAN EOUSLY DAILY 07/26 completed Not Available Not Available Not Available Farxiga 10 mg tablet TAKE 1 TABLET BY MOUTH ONCE DAILY active Not Available Not Available No t Available Levemir FlexTouch U-100 Insulin 100 unit/mL (3 mL) subcutane ous pen INJECT 100 UNITS SUBCUTAN EOUSLY IN THE MORNING AND 100 IN THE EVENING . APPOINTM ENT REQUIRED FOR FUTURE REFILLS 07/26 completed Not Available Not Available Not Available Jardiance 25 mg tablet TAKE 1 TABLET BY MOUTH ONCE DAILY 07/26 completed Not Available Not Available Not Available pen needle, diabetic 31 gauge x 1/3 active Prescrib ed Elsewher e: Yes Loca tion: [facility] odify By: dominick peterson DateTime : 12/14/19 12 04:00:00 PM Not Available Not Available Not Available Humulin R U-500 (Conc) Insulin Kwikpen 500 unit/mL (3 mL) subcutane ous INJECT 40 UNITS SUBCUTAN EOUSLY BEFORE MEALS: 40 UNITS BEFORE BREAKFAS T AND 40 UNITS BEFORE LUNCH AND 40 UNITS BEFORE DINNER active Not Available Not Available No t Available Toujeo Max U-300 SoloStar 300 unit/mL (3 mL) subcutane ous insulin pen INJECT 80 UNITS SUBCUTAN EOUSLY TWICE DAILY 07/26 completed Not Available Not Available Not Available Dexcom G6 Transmitt er device USE DIRECTED active Not Available Not Available No t Available Gvoke HypoPen 2-Pack 1 mg/0.2 mL subcutane ous auto-inje ctor INJECT 1 MG SUBCUTAN EOUSLY ONCE A SINGLE DOSE, MAY REPEAT ONCE AFTER 15 MINUTES IF NO RESPONSE 07/26 completed Not Available Not Available Not Available Trulicity 4.5 mg/0.5 mL subcutane ous pen injector INJECT 4.5 MG (0.5 ML) SUBCUTAN EOUSLY ONCE A WEEK 07/26 completed Not Available Not Available Not Available Mounjaro 2.5 mg/0.5 mL subcutane ous pen injector INJECT 2.5MG (0.5ML) SUBCUTAN EOUSLY WEEKLY active Not Available Not Available No t Available Dexcom G7 Sensor device CHANGE EVERY 10 DAYS active Not Available Not Available No t Available Ozempic 0.25 mg or 0.5 mg (2 mg/3 mL) subcutane ous pen injector INJECT 1/2 (ONE-TONY F) MG SUBCUTAN EOUSLY ONCE A WEEK FOR 4 WEEKS 07/26 completed Not Available Not Available Not Available Omnipod 5 G6-G7 Intro Kit(Gen 5) subcutane ous cartridge and controlle r CHANGE POD every 2-3 DAYS as directed active Not Available Not Available No t Available Omnipod 5 G6-G7 Pods (Gen 5) subcutane ous cartridge CHANGE POD ONCE DAILY active Not Available Not Available No t Available Vitals Date Recorded Body height Body weight Systolic And Diastolic Provider Name and Address Organization Details Last Updated DateTime 07/26/2024 149.86 cm 44408.26 g 158/83 mm[Hg] Tara Haas [facility] 07/26/2024 09:25:19 Date Recorded Body height Body mass index (BMI) Body weight Systolic And Diastolic Provider Name and Address Organization Details Last Updated DateTime 07/28/2025 149.86 cm 34.9 kg/m2 52039.76 g 143/73 mm[Hg] Tara Haas [facility] 07/28/2025 09:12:12 Date Recorded Body height Body mass index (BMI) Body weight Systolic And Diastolic Provider Name and Address Organization Details Last Updated DateTime 09/05/2022 149.86 cm 34.7 kg/m2 81220.45 g 159/79 mm[Hg] Jennifer Herman [facility] 09/05/2022 15:30:34 Social History Question Answer Notes LastModified by Organizat ion Details LastModified Time Tobacco Smoking Status Never Smoker Jennifer Herman [facility], [facility] 09/05/2022 15:02:57 Are You Blind Or Do You Have Difficulty Seeing? No [email or web address] Information n ot available 07/28/2025 What Is Your Level Of Caffeine Consumption? Occasional Information not available 07/28/2025 How Much Tobacco Do You Chew? None Information not available 07/28/2025 In The 14 Days Before Symptom Onset, Have You Had Close Contact With A Person Who Is Under Investigation For COVID-19 While That Person Was Ill? No [email or web address] Information not available 07/28/2025 Have You Been To An Area Known To Be High Risk For COVID-19? No [email or web address] Information not available 07/28/2025 Are You Deaf Or Do You Have Serious Difficulty Hearing? No Information not available 09/05/2022 What Type Of Diet Are You Following? REGULAR Information n ot available 09/05/2022 What Is The Highest Grade Or Level Of School You Have Completed Or The Highest Degree You Have Received? [id number] [email or web address] Information not available 07/28/2025 Are There Any Guns Present In Your Home? Yes [email or web address] Information not available 07/28/2025 Do You Use Protection During Sex? No [email or web address] Information not available 07/28/2025 Do You Use Your Seat Belt Or Car Seat Routinely? Yes [email or web address] Information not available 07/28/2025 Do You Have Smoke And Carbon Monoxide Detectors In Your Home? No [email or web address] Information not available 07/28/2025 How Much Tobacco Do You Smoke? No [email or web address] Information not available 07/28/2025 Do You Use Sunscreen Routinely? No [email or web address] Information not available 07/28/2025 Have You Used IV Drugs? No [email or web address] Information not available 07/28/2025 Do You Have Difficulty Walking Or Climbing Stairs? No Information not available 09/05/2022 Sex: Unknown Functional Status Question Answer Note LastModified by Organizat ion Details LastModified Time Do you use any illicit or recreational drugs? No [email or web address] Information not available 07/28/2025 What is your level of alcohol consumption? None Information not available 09/05/2022 Are you able to walk independently without assistance or assistive devices? [email or web address] Information not available 09/05/2022 Are you able to care for yourself independently? Yes Information not available 09/05/2022 What is your occupation? Retired [email or web address] Information not available 07/28/2025 Do you have difficulty dressing, bathing, grooming, or toileting? No Information not available 09/05/2022 What is your exercise level? Moderate Information not available 09/05/2022 Mental Status Question Answer Note LastModified by Organization D etails LastModified Time Do you feel stressed (tense, restless, nervous, or anxious, or unable to sleep at night)? [id number] [email or web address] Information not available 07/28/2025 Family History Relationship Description Onset Age of this Age Resolved Age Notes LastModified by Organization Details LastModified Time Father Diabetes mellitus [email or web address] Not available 08/17 15:01:49 Father Hyperlipidem ia Not available 2024 08:57:58 Father Essential hypertension [email or web address] Not available 08:57:58 Mother Malignant neoplasm of uterus [email or web address] Not available 08/17 15:04:03 Medical History Condition Response Allergies (Food, seasonal, environmental ) N Other N Breast Cancer N Drug/Latex Allergies/Reactions N Blood Transfusion N Dermatologic Disorders N Lung Disease N Defects or Inherited Disease N Breast Problem N Gestational Diabetes N Hematologic disorders N Anesthesia Complications N History of STI N Deep Vein Thrombosis N Polycystic ovary syndrome N Anxiety Disorder N Autoimmune disease N Arthritis N Infertility N Polyps N Acid Reflux (GERD) N History of abnormal pap N Cancer N Stroke N Varicosities N Neurologic/Epilepsy N Endometriosis N High Cholesterol Y Headaches N Fibromyalgia N Kidney Disease N Heart Problems N Kidney or Bladder Problems N Thyroid Problems N GI Problems N Eating Disorder N Anemia N Art (IVF or FET) N Psychiatric Illness N Ovarian Cancer N Diabetes Y Pulmonary (TB, Asthma) N Hepatitis/Liver Disease N No Past Medical History N Eczema N Urinary Tract Infection N Abuse/Domestic Violence N Asthma N Trauma/Violence N Depression/ depression N Heart Disease N Pre-Eclampsia N Hypertension Y Osteoporosis N Thrombophilias N Gynecological History Statement/Question Response Date of Last Mammogram 2024 STIs/STDs N HPV Vaccine N Current Control Method Menopause Date of Last Colonoscopy Most Recent Bone Density 12/12/2022 Sexually Active? Y Date of DEXA bone scan 12/15/2022 Age of first menstrual cycle 9 Date of Last Pap Smear 07/26/2024 Sexual Problems? N LMP Unknown Obstetrics History GPAL:G 2 P 0 0 0 2 Type Value Living 2 Total 2 Past Encounters Encounter ID Performer Location Encounter Start Date Encounter Closed Date Diagnosis/Indication Diagnosis SNOMED-CT Code Diagnosis ICD10 Code Diagnosis IMO Codes Diagnosis Note [id number] SILVIA Tabor [facility] [address] [address] 09/05/2022 14:34:04 09/05/2022 15:55:47 Screening for malignant neoplasm of breast 034022849 Z12.39 Screening for osteoporosis 469978249 Z13.820 Pain of breast 40078412 N64.4 Gynecologi c examination 29091430 Z01.419 Take Calcium with Vitamin D 12-1500mg daily. Do monthly self breast exams. It is advised to get annual flu shot in the fall and she could obtain at [facility] or [facility] take care clinic. If you haven't received the Tdap vaccine in the last 10 years you should obtain one as well. Have mammogram yearly, bone density every 2-3 years and colonoscop y every 5-10 years depending on findings and history. Engage in daily exercise of low impact aerobic exercise 45-60 minutes 4-5 times weekly. Avoid tobacco and illicit drugs as well as using moderation with alcohol intake less than 1-2 8 oz beverages daily. This lifestyle behavior pattern will lead to less health conditions and longer life span. If BMI greater than 25 weight watchers or dietary consult advised. Questions have been answered. Patient appears to understand instructio ns, but if you have any further questions call or respond to this email WWEPostmen opausalD&C required in 2017 for PMB - benign per patient. No further PMB sinceAbnor mal pap smear in 2017 per patient - no cervical procedures requiredLa st pap 2018 - normalPap done todaySTI testing declinedMa mmogram order given - last in 2016. States she is having right sided nipple pain. A tenderness that comes and goes. We agreed to diagnostic imaging.Co lonoscopy last 1 year ago per patientDex a order givenRTC in 1 year or sooner if needed BP elevated today - no symptoms. Following with PCP for HTN management . Encouraged patient to f/u with PCP for BP check, ED precaution s discussed Melanocyti c nevus of skin 770658142 D22.9 [id number] Vega Sifuentes MD [facility] [address] [address] 07/26/2024 09:06:12 07/26/2024 10:36:05 Gynecologic examination 50346821 Z01.419 Annual gynecologi americo exam performed. Patient will come back in a year unless there are new symptoms. Suggest Calcium with Vitamin D if not eating in diet. Patient advised to get annual flu shot. Recommend yearly physicals and perform monthly breast exams. Genetic testing is available for patients with family history of cancer. Engage in safe sexual practices, use condoms. Encouraged to have daily exercise. Avoid tobacco and illicit drugs, moderation of alcohol. If BMI greater than 25 dietary consult advised. If you have any questions please call or email.BP elevated today, BP medication s managed by PCP. Patient to monitor at home and call PCP if consistent ly elevated. mammogram- order given, pt to schedule colon cancer screening - UTD (cologuard 2022- WNL, repeat in 2025) DEXA scan- UTD (2022 - WNL, repeat in 2025) Pap smear- collected today laboratory evaluation - PCP Urinary symptoms [id number] 08 R39.9 Discussed empirical treatment with antibiotic s for UTI based on patient symptoms. Patient will be called with test results once available. Increase water intake (>64 oz daily), decrease caffeine intake. Pain of right breast [id number] N64.4 Diagnostic bilateral mammogram ordered to evaluate persistent right-side d breast pain. Patient agreeable to plan of care. Patient to continue SBE and report any abnormalit ies that were discussed. Recommende d decreased caffeine intake, patient may take Vit. E supplement ation 400 mg QD or BID to help relieve breast tenderness /pain. [id number] SHEELA SANCHEZ, DARIAN [facility] [address] [address] 07/28/2025 08:56:05 07/28/2025 09:27:26 Well woman health examination 381978125 Z01.419 [id number] Annual gynecologi americo exam performed. Patient will come back in a year unless there are new symptoms. Suggest Calcium with Vitamin D if not eating in diet. Patient advised to get annual flu shot. Recommend yearly physicals and perform monthly breast exams. Genetic testing is available for patients with family history of cancer. Engage in safe sexual practices, use condoms. Encouraged to have daily exercise. Avoid tobacco and illicit drugs, moderation of alcohol. If BMI greater than 25 dietary consult advised. If you have any questions please call or email.BP elevated today, BP medication s managed by PCP. Patient to monitor at home and call PCP if consistent ly elevated. mammogram- order given, pt to schedule colon cancer screening - UTD (cologuard 2022- WNL, repeat in 2025) DEXA scan- UTD (2022 - WNL, repeat in 2025) Pap smear- pap d/c (WNL 2023)USPST F recommends against screening for cervical cancer in women older than 65yo, those who've had a hysterecto my for non-cancer indication s, & who have had adequate prior screening & are not otherwise at high risk for cervical cancer. laboratory evaluation - PCP Screening mammography 24 674155 Z12.31 [id number] Health Concerns Section Related Observation LastModified by Organization Detai ls LastModified Time None Recorded Concern Status LastModified by Organization Details LastModified Time None Recorded Advance Directives Directive None Recorded Payers Insurance Date Sequence Insurance Name Policy Number Policy Munoz Covered Member ID Munoz Member ID Guarantor Name 07/28/2025 2 [facility] (MEDICARE REPLACEMENT/A DVANTAGE - PPO) [id number] Padmini Brown [id number] Padmini Brown 07/27/2025 1 [facility] Tenzin Brown [id number] Padmini Brown Notes Date Note Type Note Provider Name and Address Organization Details Recorded Time 09/05/20 22 text/htm 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 For vaginal bleeding, patient reportshistory of menopause having occurredandno history of post menopausal bleeding. For urinary symptoms, patient reportsno hematuria,no incontinence,no nocturia, andno urinary frequency. For vulva, patient reportsno genital lesionandno vulvar atrophy. For vagina, patient reportsnormal vaginal dischargeandno vaginal atrophy.Breast symptomsFor breast, patient reportsno breast lump,no nipple discharge, andno breast pain.Psychological symptomsFor sexual complaints, patient reportsno sexual complaints. For psychological symptoms, patient reportsno depressionandno anxiety.Preventative measuresFor preventive measures, patient reportsencourage regular mammograms starting age 40,encourage self breast examination,encourage regular exercise,encourage no tobacco use,needs to schedule mammogram,history of recent colonoscopy, andneeds to schedule bone density. SILVIA Tabor [address], [place], [address], [facility] 09/05/2022 15:37:38 07/26/20 24 text/htm l Annual GYNReported by PatientGenitourinary symptomsFor urinary symptoms, patient reportsurge incontinenceandincreased urinary frequencybut reportsno hematuria(pelvic/flank pain). For vulva, patient reportsno genital lesion. For vagina, patient reportsnormal vaginal discharge.Breast symptomsFor breast, patient reportsbreast pain (right-sided burning nipple pain)but reportsno breast lumpandno nipple discharge.Endocrine symptomsFor sexual complaints, patient reportsno sexual complaints,no pain during intercourse, andnormal libido. For menopausal symptoms, patient reportsno menopausal symptomsandnormal vaginal lubrication.Psychological symptomsFor psychological symptoms, patient reportsno depression,no anxiety, andno pmdd.Preventative measuresFor preventive measures, patient reportsencourage self breast examination,encourage regular exercise,encourage no tobacco use,encourage regular mammograms starting age 40,needs to schedule mammogram, andup to date on colonoscopy screening. Patient here for annual exam. Post-menopausal, denies abnormal bleeding or sx.Patient reports right breast pain around nipple that is intermittent and has been present for over a year. Patient describes the pain as burning and tender. Patient performs self-breast exams and denies any skin changes, lumps, or nipple discharge. Patient also reports urinary urgency and right-sided pelvic pain that radiates to back x one week. Patient tried AZO OTC and this helped relieve the severity of her symptoms during the day. Patient denies additional concerns. SHEELA SANCHEZ NP [address], [place], [address], [facility] 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 For vaginal bleeding, patient reportshistory of menopause having occurredandno history of post menopausal bleeding. For urinary symptoms, patient reportsno hematuria,no incontinence,no nocturia, andno urinary frequency. For vulva, patient reportsno genital lesionandno vulvar atrophy. For vagina, patient reportsnormal vaginal dischargeandno vaginal atrophy.Breast symptomsFor breast, patient reportsno breast lump,no nipple discharge, andno breast pain.Psychological symptomsFor sexual complaints, patient reportsno sexual complaints. For psychological symptoms, patient reportsno depressionandno anxiety.Preventative measuresFor preventive measures, patient reportsencourage regular mammograms starting age 40,encourage self breast examination,encourage regular exercise, andencourage no tobacco use. Patient presents for annual well woman exam. Patient denies concerns today. SHEELA SANCHEZ NP [address], [place], [address], [facility] 07/28/2025 09:24:48 OBGyn Episode Ob Episode Information Episode Created Date Number of Fetuses Patient Bloodtype Patient rh Status Prepregnancy Weight lbs Domestic Partner Domestic Partner Phone Father Name Sample Tester Grinder Status 09/05/20 22 1 CLOSED Fetus Data First Name Last Name Admitted to NICU Weight (g) Sex Living Outcome Pediatric Complications Fetus ID Race Codes Race Delivery Type [phone] [phone] [id number] Armani Calculation Initial Armani Date Initial Exam Date Initial Exam Provider Initial Ultrasound Date Last Menstrual Period Date Ultra Sound Weeks Gestation 0 Eighteen To Twenty Week Armani Update Ultra Sound Date Fundal Height At Umbil Quickening Date Ultra Sound Latest Weeks Gestation Final Armani Confirmed By Final Armani Confirmed Date Final Armani Date Ultra Sound Latest Days Gestation 0 0 Menstrual History Last Menstrual Date Menses Monthly On Bcp Conception Prior Menses Frequency Hcg Plus Date Menarche Onset Age Delivery Information Delivery Date Delivery Type Labor Anesthesia Weeks Gestation Incision Type Labor Labor Length Hrs Delivered By Post Complications Tubal Sterilization Discharge Date Comments 4 Discharge Information Feeding Method Contraceptive Method Maternal HG B and HCT Levels Ob Episode Information Episode Created Date Number of Fetuses Patient Bloodtype Patient rh Status Prepregnancy Weight lbs Domestic Partner Domestic Partner Phone Father Name Sample Tester Grinder Status 09/05/20 1 CLOSED Fetus Data First Name Last Name Admitted to NICU Weight (g) Sex Living Outcome Pediatric Complications Fetus ID Race Codes Race Delivery Type 3203.26 [id number] Armani Calculation Initial Armani Date Initial Exam Date Initial Exam Provider Initial Ultrasound Date Last Menstrual Period Date Ultra Sound Weeks Gestation 0 Eighteen To Twenty Week Armani Update Ultra Sound Date Fundal Height At Umbil Quickening Date Ultra Sound Latest Weeks Gestation Final Armani Confirmed By Final Armani Confirmed Date Final Armani Date Ultra Sound Latest Days Gestation 0 0 Menstrual History Last Menstrual Date Menses Monthly On Bcp Conception Prior Menses Frequency Hcg Plus Date Menarche Onset Age Delivery Information Delivery Date Delivery Type Labor Anesthesia Weeks Gestation Incision Type Labor Labor Length Hrs Delivered By Post Complications Tubal Sterilization Discharge Date Comments 9 Discharge Information Feeding Method Contraceptive Method Maternal HG B and HCT Levels
[2025-08-01] MEDS: SODIUM CHLORIDE 0.9% IV 1,000 ML 999 ML IV CONT (13:37)
[2025-08-01] MEDS: ONDANSETRON INJ 4 MG/2 ML VIAL IV PUSH (13:37)
[2025-08-01] MEDS: cefTRIAXone 1 GM in SODIUM CHLORIDE 0.9% IV 50 ML 100 ML IVPB (13:37)
[2025-08-01] MEDS: KETOROLAC 30 MG/ML VIAL (*BKC) IV PUSH (13:38)
[2025-08-01] MEDS: FAMOTIDINE 20 MG/2 ML VIAL IV PUSH (13:38)
[2025-08-01] MEDS: PROCHLORPERAZINE EDISYLATE 10 MG/2 ML VIAL IV PUSH (15:43)
[2025-08-01 16:11] LABS: Troponin I < 0.012 ng/mL (0.000-0.034)
[2025-08-01 16:54] LABS: NT Pro B Type Natriuretic Pept < 20 pg/mL (19.9-100)
[2025-08-01 16:57] LABS: Troponin I < 0.012 ng/mL (0.000-0.034)
[2025-08-01] MEDS: FLUCONAZOLE 150 MG TABLET PO (16:58)
== END 2025-08-01 17:34 | disposition home or self-care (01) ==
PROVIDERS: Emergency Medicine; Emergency Provider Nurse Practitioner Family; PCP Family Medicine
DX: B37.49 Other urogenital candidiasis (principal); R11.2 Nausea with vomiting, unspecified; R19.7 Diarrhea, unspecified; N28.89 Other specified disorders of kidney and ureter; I10 Essential (primary) hypertension; E11.9 Type 2 diabetes mellitus without complications; I25.2 Old myocardial infarction; E78.5 Hyperlipidemia, unspecified
CPT/HCPCS: 36415; 71046; 74177; 80053; 81001; 83605; 83690; 83880; 84484; 85025; 93005; 96365; 96375; 99284; A9270; J0696; J0780; J1885; J2405; J7030; Q9967